=== PATIENT | male | born 1960 | race Caucasian/White ===

== ENCOUNTER 2020-03-01 07:59 | Outpatient (REF) | payer OTHER, SELFPAY ==
--- NOTE | 2020-03-01 07:59 | CT_ITS ---
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 COMPARISON: Selected images of the CT abdomen and pelvis of 12/28/2019, multiple previous chest CTs with the last chest CT dated 09/14/2019, selected images of the abdominal MRI of 11/10/2019 TECHNIQUE: Multidetector volumetric CT imaging of the chest was obtained after the administration of 65 mL of Omnipaque 350 intravenous contrast without immediate adverse reactions. Axial MIP volume rendering provided. Sagittal and coronal reformatted images were obtained. This CT examination was performed using dose optimization techniques as appropriate, variously including the following: *Automated exposure control *Adjustment of mA and/or kV according to patient size (this includes techniques or standardized protocols for targeted exams where dose is matched to indication/reason for exam; i.e. extremities or head) *Use of iterative reconstruction technique DLP: 112 mGy-cm FINDINGS: MEDICAL SURGERY NURSE: A right-sided CT compatible Port-A-Cath is noted with the tip of the catheter projecting over the expected location of the lower SVC. Vertebroplasty changes are noted at L1. LUNGS: Mild changes of centrilobular emphysema with upper lobe predominance are again noted. There is mild diffuse bronchial thickening. Multiple scattered small calcified granulomas are noted. Mild paraseptal emphysematous changes in the lung apices, right greater than left. A 0.4 cm noncalcified subpleural nodule in the right apex anterolaterally (series 7 image 89), probable ill-defined 0.4 cm subpleural nodule in the right upper lobe anterolaterally (series 7 image 110) and a 0.2 cm discrete noncalcified subpleural nodule in the right upper lobe anterolaterally (series 7 image 125) are not significantly changed compared to previous CT of 04/18/2018. Somewhat irregular opacity/mass in the inferior left upper lobe measuring 1.7 x 0.9 cm is again noted (series 7 image 317), without significant interval change compared to previous CT scan of 02/04/2019 as well as PET CT of 10/30/2018. Initial CT scan of 07/24/2017, an irregular mass was noted in the region measuring 2.3 x 2.5 cm in AP and transverse dimension which demonstrated increase in the size on follow-up CT of 12/03/2017 measuring 2.7 x 3.7 cm. It measured 2.3 x [address] scan of 04/18/2018. This is the site of known malignancy. MEDIASTINUM: The visualized thyroid gland is unremarkable. No evidence of enlarged mediastinal or hilar lymph nodes. Cardiac size is normal. Moderate coronary calcifications. No pericardial effusion. Trachea and central bronchi are well patent. An ascending aortic aneurysm measures 4.0 cm at the level of the right main pulmonary artery. The descending thoracic aorta measures 3.1 cm in maximum AP diameter. There is mild ectasia of the aortic arch measuring 3.6 cm in transverse diameter. PLEURA: There is no pleural effusion. No pleural mass or thickening. AXILLA: No lymphadenopathy. CHEST WALL SOFT TISSUES: Symmetrical mild bilateral gynecomastia is noted. A CT compatible Port-A-Cath is noted in the right upper anterior chest wall subcutaneous tissue terminating into the lower SVC. UPPER ABDOMEN: Multiple rim enhancing hypodense lesions are noted in the liver with the largest one at the hepatic dome measuring 1.8 cm (series 3 image 49). The second discrete lesion in the hepatic segment 8 measures 1.6 cm in maximum dimension (series 3 image 57). These lesions are new compared to last CT of 12/28/2019. 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 Pancreatic and peripancreatic fluid collections invading the adjacent gastric wall are again noted with mild decrease in the size compared to last CT. Postsurgical changes of splenectomy are seen. A rounded fluid collection in the vicinity of the caudate lobe has decreased in size, measuring 2.7 cm on current examination, previously 5.1 cm (12/28/2019). Bilateral hypodense lesions in the visualized kidneys are again noted. OSSEOUS STRUCTURES: Vertebroplasty changes at L1 are again noted. Mild degenerative changes in the spine. No acute or suspicious osseous lesion. IMPRESSION: 1. Irregular opacity/mass in the inferior left upper lobe/lingula is not significantly changed since the previous PET/CT of 10/30/2018. This is the site of known malignancy. The finding has significantly decreased in size compared to previous CTs of 2018. 2. Changes of emphysema. 3. A few subcentimeter noncalcified right upper lobe subpleural lung nodules are stable since the previous chest CT of 04/18/2018. 4. Improving pancreatic and peripancreatic fluid collections. 5. Multiple new rim enhancing liver lesions; differential possibilities include metastases versus hepatic abscesses. The appearance of multiple new liver lesions seen on the current CT is similar to that the liver lesions seen on the CT scan of 12/03/2017 the left hepatic lobe lesion seen on the CT scan of 12/03/2017 is not seen on the current examination. Hepatic metastases are favored given the appearance of the lesions similar to the previous studies and interval improvement of the pancreatic/peripancreatic infectious/inflammatory process in the upper abdomen. The findings were discussed with Dr. Mathews, covering physician for Dr. Angeles on 03/02/2020 at 12:45 PM.
[2020-03-01] MEDS: iohexoL 350 MG/ML 100 ML INFUS..BTL 85 ML IV (10:04)
--- NOTE | 2020-03-04 11:26 | MHC.HEMONCSW ---
PT TO START KEYTRUDA NEXT WEEK. INSURANCE IS [employer], NO PA FOR CHEMO REQUIRED.
== END 2020-03-01 08:00 | disposition home or self-care (01) ==
LOC: HO.CT 07:59
PROVIDERS: PCP Internal Medicine; Visit Provider Internal Medicine Medical Oncology
DX: C34.90 Malignant neoplasm of unspecified part of unspecified bronchus or lung (principal)
CPT/HCPCS: 71260; J1642

== ENCOUNTER 2020-04-18 08:05 | Inpatient (IN) | payer OTHER, SELFPAY ==
[2020-04-18] VITALS (10 sets, daily range): BP systolic 81–128; BP diastolic 54–72; PULSE 62–105; RESP 16–19; TEMP 36.6–37.2; O2SAT 98–100; BMI 19.1; BMI 20.2
--- NOTE | 2020-04-18 08:41 | XR_ITS ---
EXAMINATION: RIGHT KNEE X-RAY CLINICAL INFORMATION: Redness, swelling and pain COMPARISON: Previous x-ray August 2018 TECHNIQUE: 4 views right knee FINDINGS: Bone alignment is normal. No fracture or dislocation is seen. The joint spaces are normal. There is no significant joint effusion. There is evidence of atherosclerotic disease. XR/XR knee RT 3V IMPRESSION: Unremarkable exam. EXAMINATION: Chest x-ray CLINICAL INFORMATION: Dizziness COMPARISON: Previous chest x-ray December [address] February 2020 TECHNIQUE: Two-view chest FINDINGS: The cardiac and mediastinal contours are normal. There is minimal linear scarring or subsegmental atelectasis in the left upper lobe. This is stable. The lungs are otherwise clear. There is no pleural effusion or pneumothorax. There is a right sided Port-A-Cath with tip projecting over the SVC. There are degenerative changes of the spine. IMPRESSION: No evidence for acute disease in the chest.
--- NOTE | 2020-04-18 08:42 | ECG_ITS ---
Test Reason : CP Blood Pressure : / mmHG Vent. Rate : 072 BPM Atrial Rate : 072 BPM P-R Int : 126 ms QRS Dur : 080 ms QT Int : 446 ms P-R-T Axes : -15 -11 047 degrees QTc Int : 488 ms Normal sinus rhythm Prolonged QT RSR' or QR pattern in V1 suggests right ventricular conduction delay Abnormal ECG When compared with ECG of 28-DEC-2019 14:38, No significant change was found Referred By: Dinorah Del Real Electronically Signed By:ADEEL VALENCIA MD
--- NOTE | 2020-04-18 08:42 | XR_ITS ---
EXAMINATION: RIGHT KNEE X-RAY CLINICAL INFORMATION: Redness, swelling and pain COMPARISON: Previous x-ray August 2018 TECHNIQUE: 4 views right knee FINDINGS: Bone alignment is normal. No fracture or dislocation is seen. The joint spaces are normal. There is no significant joint effusion. There is evidence of atherosclerotic disease. XR/XR chest 2V IMPRESSION: Unremarkable exam. EXAMINATION: Chest x-ray CLINICAL INFORMATION: Dizziness COMPARISON: Previous chest x-ray December [address] February 2020 TECHNIQUE: Two-view chest FINDINGS: The cardiac and mediastinal contours are normal. There is minimal linear scarring or subsegmental atelectasis in the left upper lobe. This is stable. The lungs are otherwise clear. There is no pleural effusion or pneumothorax. There is a right sided Port-A-Cath with tip projecting over the SVC. There are degenerative changes of the spine. IMPRESSION: No evidence for acute disease in the chest.
--- NOTE | 2020-04-18 08:45 | ED_ITS ---
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 Angeles, myelofibrosis, TIA, pancreatitis. is on chronic prednisone 5 mg and Coumadin daily. Patient is here with nausea and vomiting for the last 3 days. He tells me that he has Zofran at home but has not tried taking it. Today he had 1 episode of diarrhea. He denies abdominal pain. He tells me today when he woke up he stood up and felt lightheaded and dizzy and that is when he called EMS. He denies any headache, cough, fevers, chills, chest pain. He does tell me he has had a painful right knee for the last few days. He denies any injury or trauma. unrelieved with home hydromorphone. Onset (ago): day(s) Location: lower extremity ( Right knee) Radiation: extremity Severity: mild Quality: sharp Pain Consistency: constant Relieving factors: none Exacerbating factors: none Associated symptoms: denies other symptoms Related Data Home Medications Medication Instructions Recorded Confirmed atorvastatin 20 mg PO BEDTIME 03/28/20 04/18/20 docusate sodium [Colace] 100 mg PO BID 03/28/20 04/18/20 doxycycline hyclate 100 mg PO BID 03/28/20 04/18/20 folic acid 1 mg PO DAILY 03/28/20 04/18/20 qpulax-[id number]-[id number] [Creon] 1 cap PO TID 03/28/20 04/18/20 mycophenolate mofetil [CellCept] 500 mg PO TID 03/28/20 04/18/20 tamsulosin 0.4 mg PO DAILY 03/28/20 04/18/20 omeprazole 20 mg PO DAILY 04/18/20 04/18/20 thiamine HCl (vitamin B1) [Vitamin 100 mg PO DAILY 04/18/20 04/18/20 B-1] Previous Rx's Medication Instructions Recorded rivaroxaban 20 mg tablet 20 mg PO DAILY 90 Days #90 tab 02/28/20 hydromorphone [Dilaudid] 2 mg PO Q6H 30 Days #60 tab 03/08/20 ondansetron HCl [Zofran] 8 mg PO NEEDED #60 tab 03/24/20 morphine [MS Contin] 30 mg PO Q12H 30 Days #30 tab 04/11/20 Allergies Allergy/AdvReac Type Severity Reaction Status Date / Time oxycodone [OXYCODONE] Allergy Unknown VOMITING, Verified 04/18/20 09:40 nausea and vomiting Review of Systems Review of Systems: Yes all other systems are reviewed and are negative Constitutional: Constitutional: Reports no additional constitutional complaints, Denies body ache(s), Denies chills, Denies fever(s), Denies headache(s) and Denies weakness Eyes: Eyes: Reports no additional eye complaints and Denies change in vision ENT: Reports system reviewed and no additional complaints, except as documented, Reports dizziness, Denies headache(s), Denies nasal congestion, Denies nasal discharge and Denies neck pain Cardiovascular: Cardiovascular: Reports no additional cardiovascular complaints, Denies chest pain, Denies leg edema and Denies dyspnea Respiratory: Respiratory: Reports no additional respiratory complaints, Denies cough and Denies dyspnea Gastrointestinal: Gastrointestinal: Reports no additional gastrointestinal complaints, Denies abdominal pain, Reports diarrhea, Reports nausea and Reports vomiting Genitourinary: Genitourinary: Denies urinary incontinence Musculoskeletal: Musculoskeletal: Reports no additional musculoskeletal complaints, Denies back pain, Reports arthralgias, Reports joint swelling, Denies neck pain, Denies numbness and Denies tingling Integumentary/Breasts: Skin/Breast: Reports system reviewed and no additional complaints, except as docu and Denies rash Neurologic: Reports system reviewed and no additional complaints, except as documented, Denies Abnormal speech present, Reports dizziness, Denies headache(s), Denies numbness, Denies tingling and Denies weakness [facility] Past Medical History Attestation statement: The following information was validated with the patient. Source: old records reviewed and nursing notes reviewed Medical History (Updated 04/18/20 @ 11:34 by Dinorah Del Real NP) Lupus anticoagulant disorder Myelofibrosis Pancreatic pseudocyst Polycythemia vera TIA (transient ischemic attack) Surgical History (Updated 04/18/20 @ 13:31 by Rachel Westfall NP) H/O hernia repair S/P herniorrhaphy Social History Social History Alcohol intake: never Smoking Status: Former smoker Use of substances other than those prescribed or required for medical reasons: No Advance Directives: No Advance Directives Information Provided: Yes Physical Exam 2 Vital Signs: Vital Signs: Last Vital Signs Temp 98.5 F 04/18/20 13:21 Pulse 72 04/18/20 13:21 Resp 16 04/18/20 13:21 BP 107/64 04/18/20 13:21 Pulse Ox 100 04/18/20 13:21 Body Mass Index 19.1 Const: Other: thin appearing General: cooperative, comfortable and no acute distress Orientation/consciousness: patient oriented x3 Limitations: no limitations HENMT: Other: Tacky mucous membranes Head: Yes normal to inspection Ears: hearing grossly normal bilaterally General nose exam: Normal external nose present Face and sinus: Yes normal facial exam Throat: Yes posterior oropharynx normal Eyes: General: appearance normal, both eyes and all related structures Pupils: Equal, round and reactive pupils present Neck: Neck: Yes normal visual inspection Chest: Chest palpation & inspection: normal inspection of the chest Resp: Effort & Inspection: normal respiratory effort Auscultation: clear to auscultation bilaterally Cardio: Rate: regular rate Rhythm: regular rhythm Peripheral pulses: Peripheral pulses 2+ throughout GI: Inspection: Yes normal to inspection Palpation (GI): Soft to palpation and nontender Auscultation: normal bowel sounds Back/Spine/Pelvis: Thoracic/Lumbar Spine: thoracic and lumbar spine normal to inspection Skin: General skin exam: no rashes or lesions noted Neuro: Other: [id number] normal. Unable to perform heel to brooke to the right knee pain. Unable to assess gait this time. General: patient oriented x3, no focal motor deficits, normal sensation to monofilament and Unable to assess gait Cranial nerves: Yes Equal, round and reactive pupils present Cognition (Neuro): normal cognition Speech: No Abnormal speech present Gait exam (Neuro): Unable to assess gait Motor exam (neuro): 5/5 motor strength present throughout Extrem: Other: Anterior right knee there is the mild swelling, erythema, warmth. No deformity. The patient is able to extend the knee no difficulty. He does have more pain with flexion General: Yes normal to inspection Course Course Course Narrative: 59-year-old male here with nausea, vomiting for the last 3 days. also complaining of right knee pain and swelling and dizziness with position changes noticed today. On exam the patient is thin appearing, tacky mucous membranes. No abdominal pain. Stable vital signs. Afebrile. will need labs, UA, orthostatics, imaging of chest and right knee, CT head. Will give NSB, antiemetic, analgesia. 1130- labs show leukocytosis which is unchanged from baseline and is likely secondary to chronic prednisone use. Mildly elevated troponin with no complaints of chest pain or EKG changes. Plan for repeat 3 hour troponin. Renal function at baseline. Low magnesium which is likely secondary to vomiting at home. Replacement ordered. Imaging unremarkable. Orthostatics significa ntly positive. 2 L normal saline bolus ordered. Patient unable to tolerate p.o. while here in the emergency department. Plan for admission. Discussed with Rachel DUFFY who accepted admission. Imaging of right knee unremarkable. Low concern for septic bursitis with full range of motion with no difficulty. More likely reactive arthritis. Medical Decision Making MDM Narrative Medical decision making narrative: Failure to thrive, vomiting secondary to chemotherapy, underlying infection (PNA, uti, covid infection, septic bursitis), pancreatitis, ICH versus lesion Medical Records Medical records reviewed: Yes I reviewed the patient's medical records. Lab Data Lab results reviewed: Yes I reviewed the patient's lab results. Result diagrams: 04/18/20 09:28 04/18/20 09:29 Labs: Lab Results 04/18/20 04/18/20 04/18/20 Range/Units 09:28 09:29 09:29 WBC 17.0 H (4.8-10.8) X10*3/uL RBC 3.50 L (4.60-5.80) X10*6/uL Hgb 9.7 L (14.0-18.0) g/dl Hct 30.0 L (42-52) % MCV 85.7 (80-98) fL MCH 27.7 (27.0-33.0) pg MCHC 32.3 (31.0-36.0) g/dl RDW 15.9 (11.0-16.0) % Plt Count 374 (160-400) X10*3/uL MPV 11.2 (9.4-12.4) fL Immature Gran % (Auto) 0.5 H (0.0-0.4) % Neut % (Auto) 56.7 (45-73) % Lymph % (Auto) 23.0 (20-40) % Brantley % (Auto) 9.5 (2-11) % Eos % (Auto) 9.1 H (0-4) % Baso % (Auto) 1.2 (0-2) % Lymph # (Auto) 3.9 (1.2-4.9) X10*3/uL Brantley # (Auto) 1.6 H (0.1-1.2) X10*3/uL Eos # (Auto) 1.6 H (0.0-0.4) X10*3/uL Baso # (Auto) 0.2 (0.0-0.2) X10*3/uL Abs Immat Gran (auto) 0.08 H (0.00-0.03) X10*3/uL Absolute Neuts (auto) 9.6 H (2.0-8.3) X10*3/uL Absolute Nucleated RBC 0.040 H (0.0-0.012) X10*3/uL Nucleated RBC % (auto) 0.2 (0.0-0.2) /100WBC Smear Tech's Comments VERIFIED Hold Blue Top SEE NOTE Sodium 144 (135-145) mmol/L Potassium 4.1 (3.3-5.1) mmol/l Chloride 109 H (96-108) mmol/L Carbon Dioxide 20 L (22-29) mmol/L Anion Gap 19 (12-20) BUN 24 H (9-16) mg/dL Creatinine 1.58 H (0.5-1.4) mg/dL Estim Creat Clear Calc 43.1 Estimated GFR 45 Random Glucose 62 D (60-115) mg/dL Lactic Acid (0.5-2.0) mmol/L Calcium 7.0 L D (8.4-10.2) mg/dL Magnesium < 0.7 L* (1.6-2.6) mg/dL Total Bilirubin 0.8 (0.0-1.0) mg/dL Direct Bilirubin 0.4 (0.0-0.5) mg/dL AST 16 (5-37) U/L ALT 7 (0-40) U/L Alkaline Phosphatase 145 H (39-117) U/L Troponin I High Sens (<3.5-35.0) ng/L Total Protein 5.2 L (6.5-8.0) g/dL Albumin 2.8 L (3.5-5.0) g/dL Lipase 46 (8-78) U/L Respiratory Panel Mo Adenovirus (Rapid PCR) (Not Detect.) B.pert (TEM-PCR) (Not Detect.) B.parapertussis DNA PCR (Not Detect.) C. pneumoniae DNA (PCR) (Not Detect.) Coronavirus OC43 (PCR) (Not Detect.) Coronavirus HKU1 (PCR) (Not Detect.) Coronavirus 229E (PCR) (Not Detect.) Coronavirus NL63 (PCR) (Not Detect.) Human Metapneumovir PCR (Not Detect.) Influenza A (RT-PCR) (Not Detect.) Influenza B (RT-PCR) (Not Detect.) M. pneumoniae (PCR) (Not Detect.) Parainfluenza 1 (PCR) (Not Detect.) Parainfluenza 2 (PCR) (Not Detect.) Parainfluenza 3 (PCR) (Not Detect.) Parainfluenza 4 (PCR) (Not Detect.) RSV (PCR) (Not Detect.) Entero/Rhino (PCR) (Not Detect.) SARS-CoV-2 RNA (RT-PCR) (Not Detect.) 04/18/20 04/18/20 04/18/20 Range/Units 09:29 09:30 09:31 WBC (4.8-10.8) X10*3/uL RBC (4.60-5.80) X10*6/uL Hgb (14.0-18.0) g/dl Hct (42-52) % MCV (80-98) fL MCH (27.0-33.0) pg MCHC (31.0-36.0) g/dl RDW (11.0-16.0) % Plt Count (160-400) X10*3/uL MPV (9.4-12.4) fL Immature Gran % (Auto) (0.0-0.4) % Neut % (Auto) (45-73) % Lymph % (Auto) (20-40) % Brantley % (Auto) (2-11) % Eos % (Auto) (0-4) % Baso % (Auto) (0-2) % Lymph # (Auto) (1.2-4.9) X10*3/uL Brantley # (Auto) (0.1-1.2) X10*3/uL Eos # (Auto) (0.0-0.4) X10*3/uL Baso # (Auto) (0.0-0.2) X10*3/uL Abs Immat Gran (auto) (0.00-0.03) X10*3/uL Absolute Neuts (auto) (2.0-8.3) X10*3/uL Absolute Nucleated RBC (0.0-0.012) X10*3/uL Nucleated RBC % (auto) (0.0-0.2) /100WBC Smear Tech's Comments Hold Blue Top Sodium (135-145) mmol/L Potassium (3.3-5.1) mmol/l Chloride (96-108) mmol/L Carbon Dioxide (22-29) mmol/L Anion Gap (12-20) BUN (9-16) mg/dL Creatinine (0.5-1.4) mg/dL Estim Creat Clear Calc Estimated GFR Random Glucose (60-115) mg/dL Lactic Acid 1.2 (0.5-2.0) mmol/L Calcium (8.4-10.2) mg/dL Magnesium (1.6-2.6) mg/dL Total Bilirubin (0.0-1.0) mg/dL Direct Bilirubin (0.0-0.5) mg/dL AST (5-37) U/L ALT (0-40) U/L Alkaline Phosphatase (39-117) U/L Troponin I High Sens 11.0 (<3.5-35.0) ng/L Total Protein (6.5-8.0) g/dL Albumin (3.5-5.0) g/dL Lipase (8-78) U/L Respiratory Panel Mo See Note Adenovirus (Rapid PCR) Not Detected (Not Detect.) B.pert (TEM-PCR) Not Detected (Not Detect.) B.parapertussis DNA PCR Not Detected (Not Detect.) C. pneumoniae DNA (PCR) Not Detected (Not Detect.) Coronavirus OC43 (PCR) Not Detected (Not Detect.) Coronavirus HKU1 (PCR) Not Detected (Not Detect.) Coronavirus 229E (PCR) Not Detected (Not Detect.) Coronavirus NL63 (PCR) Not Detected (Not Detect.) Human Metapneumovir PCR Not Detected (Not Detect.) Influenza A (RT-PCR) Not Detected (Not Detect.) Influenza B (RT-PCR) Not Detected (Not Detect.) M. pneumoniae (PCR) Not Detected (Not Detect.) Parainfluenza 1 (PCR) Not Detected (Not Detect.) Parainfluenza 2 (PCR) Not Detected (Not Detect.) Parainfluenza 3 (PCR) Not Detected (Not Detect.) Parainfluenza 4 (PCR) Not Detected (Not Detect.) RSV (PCR) Not Detected (Not Detect.) Entero/Rhino (PCR) Not Detected (Not Detect.) SARS-CoV-2 RNA (RT-PCR) Not Detected (Not Detect.) Imaging Data Chest x-ray: Attestation: I personally reviewed and interpreted this imaging study as follows: Radiologist's impression: EXAMINATION: Chest x-ray CLINICAL INFORMATION: Dizziness COMPARISON: Previous chest x-ray December [address] February 2020 TECHNIQUE: Two-view chest FINDINGS: The cardiac and mediastinal contours are normal. There is minimal linear scarring or subsegmental atelectasis in the left upper lobe. This is stable. The lungs are otherwise clear. There is no pleural effusion or pneumothorax. There is a right sided Port-A-Cath with tip projecting over the SVC. There are degenerative changes of the spine. IMPRESSION: No evidence for acute disease in the chest. knee xray: Attestation: I personally reviewed and interpreted this imaging study as doyle bazan: Radiologist's impression: EXAMINATION: RIGHT KNEE X-RAY CLINICAL INFORMATION: Redness, swelling and pain COMPARISON: Previous x-ray August 2018 TECHNIQUE: 4 views right knee FINDINGS: Bone alignment is normal. No fracture or dislocation is seen. The joint spaces are normal. There is no significant joint effusion. There is evidence of atherosclerotic disease. XR/XR knee RT 3V IMPRESSION: Unremarkable exam. CT scan - head: Attestation: I personally reviewed and interpreted this imaging study as follows: Radiologist's impression: EXAMINATION: CT HEAD WITHOUT IV CONTRAST INDICATION: Dizziness, nausea, rule out mass. COMPARISON: Head CT 09/14/2019. TECHNIQUE: Multidetector CT acquisitions of the head was obtained without IV contrast. This CT examination was performed using dose optimization techniques as appropriate, variously including the following: *Automated exposure control *Adjustment of mA and/or kV according to patient size (this includes techniques or standardized protocols for targeted exams where dose is matched to indication/reason for exam; i.e. extremities or head) *Use of iterative reconstruction technique FINDINGS: Stable pattern chronic microangiopathy and chronic lacunar infarcts within the deep espinoza nuclei. There is no intracranial hemorrhage, hydrocephalus, extra-axial surface collection, midline shift, or other herniation pattern. Espinoza to white matter differentiation is diffusely maintained without evidence of an evolved acute territorial infarct. The basilar cisterns are preserved. No significant soft tissue abnormality. No acute osseous abnormality. The paranasal sinuses and the mastoid air cells are well aerated. CT/CT head/brain wo con IMPRESSION: - No acute intracranial abnormality. - Stable pattern chronic microangiopathy and chronic lacunar infarcts within the deep espinoza nuclei. - Atherosclerotic calcification throughout the intracranial arterial vasculature. ECG Data Attestation: I personally reviewed and interpreted this ECG as follows: Interpretation: normal sinus rhythm with a rate of 72, normal DE, normal QRS, prolonged QT 488 Discharge Plan Discharge Clinical Impression: Non-small cell carcinoma of lung, Hypomagnesemia, Orthostatic hypotension Patient Disposition: Admitted As Inpatient
--- NOTE | 2020-04-18 09:10 | PC.NURSE ---
Pt taken to xray at 0845. Just returned
[2020-04-18] MEDS: 0.9 % Sodium Chloride 1,000 ML 999 ML IV ×2 (09:41→10:41)
[2020-04-18] MEDS: HYDROmorphone HCl 0.5 MG/0.5 ML SYRINGE IVPUSH ×3 (09:42→21:00)
[2020-04-18] MEDS: ondansetron HCL 4 MG/2 ML VIAL IVPUSH (09:43)
[2020-04-18 09:52] LABS: Basophils Absolute Auto 0.2 X10*3/uL (0.0-0.2); Basophils Percent Auto 1.2 % (0-2); Eosinophils Absolute Auto 1.6 X10*3/uL (0.0-0.4); Eosinophils Percent Auto 9.1 % (0-4); Hemoglobin 9.7 g/dl (14.0-18.0); Imm Gran Abs Auto 0.08 X10*3/uL (0.00-0.03); Imm Gran Pct Auto 0.5 % (0.0-0.4); Lymphocytes Absolute Auto 3.9 X10*3/uL (1.2-4.9); MANUAL DIFF FLAG SCAN; Mean Corpuscular HGB Conc 32.3 g/dl (31.0-36.0); Mean Corpuscular Hemoglobin 27.7 pg (27.0-33.0); Mean Corpuscular Volume 85.7 fL (80-98); Mean Platelet Volume 11.2 fL (9.4-12.4); Monocytes Absolute Auto 1.6 X10*3/uL (0.1-1.2); Monocytes Percent Auto 9.5 % (2-11); NRBC Pct Auto 0.2 /100WBC (0.0-0.2); Neutrophils Absolute Auto 9.6 X10*3/uL (2.0-8.3); Neutrophils Percent Auto 56.7 % (45-73); Platelet Count 374 X10*3/uL (160-400); Red Cell Distribution Width 15.9 % (11.0-16.0); SCAN SMEAR FLAG 1
[2020-04-18 10:03] LABS: Lactic Acid 1.2 mmol/L (0.5-2.0)
[2020-04-18 10:11] LABS: Adenovirus PCR Not Detected (Not Detect.); Bordetella parapertussis PCR Not Detected (Not Detect.); Bordetella pertussis PCR Not Detected (Not Detect.); Chlamydia pneumoniae PCR Not Detected (Not Detect.); Coronavirus 229E PCR Not Detected (Not Detect.); Coronavirus HKU1 PCR Not Detected (Not Detect.); Coronavirus NL63 PCR Not Detected (Not Detect.); Coronavirus OC43 PCR Not Detected (Not Detect.); Human metapneumovirus PCR Not Detected (Not Detect.); Influenza A PCR Not Detected (Not Detect.); Influenza B PCR Not Detected (Not Detect.); Mycoplasma pneumoniae PCR Not Detected (Not Detect.); Parainfluenza 1 PCR Not Detected (Not Detect.); Parainfluenza 2 PCR Not Detected (Not Detect.); Parainfluenza 3 PCR Not Detected (Not Detect.); Parainfluenza 4 PCR Not Detected (Not Detect.); RSV PCR Not Detected (Not Detect.); Rhino/Enterovirus PCR Not Detected (Not Detect.); SARS-CoV-2 PCR Not Detected (Not Detect.)
[2020-04-18 10:41] LABS: SLIDE REVIEW VERIFIED
[2020-04-18 10:50] LABS: Alanine Aminotransferase 7 U/L (0-40); Albumin Level 2.8 g/dL (3.5-5.0); Alkaline Phosphatase 145 U/L (39-117); Anion Gap 19 (12-20); Aspartate Amino Transferase 16 U/L (5-37); Bilirubin Direct 0.4 mg/dL (0.0-0.5); Bilirubin Total 0.8 mg/dL (0.0-1.0); Blood Urea Nitrogen 24 mg/dL (9-16); Carbon Dioxide 20 mmol/L (22-29); Chloride 109 mmol/L (96-108); Creatinine Clr Calc Pharmacy 43.1; Estimated Glomerular Filt Rate 45; Glucose Random 62 mg/dL (60-115); Lipase 46 U/L (8-78); Potassium 4.1 mmol/l (3.3-5.1); Sodium 144 mmol/L (135-145); Total Protein 5.2 g/dL (6.5-8.0)
[2020-04-18] MEDS: Magnesium Sulfate/H2O 2 GM/50 ML PIGGYBACK IV (11:20)
[2020-04-18] MEDS: HYDROmorphone HCl 1 MG/ML SYRINGE IVPUSH (12:17)
[2020-04-18 13:26] LABS: Magnesium < 0.7 mg/dL (1.6-2.6)
--- NOTE | 2020-04-18 13:27 | PM.IMHP ---
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 He is currently under treatment at [facility] [place] [place]. He was getting ready today to leave his house for treatment and he started to feel dizzy. He also stated that he has had some nausea and diarrhea since last week and has not been eating well. He has a history of hypotension and was told to follow up if he felt dizzy. He was discharged from [facility] in December of 2019. At that time he was treated for acute on chronic pancreatitis, he was transferred to [facility] for evacuation of pancreatic pseudocysts. In the ED, he was noted to have an elevated WBC, magnesium of 0.7 that was repleted in the ED. He was given pain medication and zofran. He will be admitted for further management of orthostasis and hypomagnesemia. <Rachel Westfall NP - Last Filed: 04/18/20 13:59> Review of Systems Review of Systems: Denies any recent fever chills or decrease in appetite respiratory denies any shortness of breath coverage production cardiovascular is adjustment of any PND or edema gastrointestinal denies any dysphagia abdominal pain nausea vomiting or diarrhea genitourinary denies any dysuria frequency or hematuria musculoskeletal see HPI neuropsych see HPI all other systems reviewed are negative <Rachel Westfall NP - Last Filed: 04/18/20 13:59> Constitutional: Constitutional: Denies headache(s) and Denies weakness <Rachel Westfall NP - Last Filed: 04/18/20 13:59> ENT: Reports dizziness and Denies headache(s) <Rachel Westfall NP - Last Filed: 04/18/20 13:59> Musculoskeletal: Musculoskeletal: Denies numbness and Denies tingling <Rachel Westfall NP - Last Filed: 04/18/20 13:59> Neurologic: Reports system reviewed and no additional complaints, except as documented, Denies Abnormal speech present, Reports dizziness, Denies headache(s), Denies numbness, Denies tingling and Denies weakness <Rachel Westfall NP - Last Filed: 04/18/20 13:59> [facility] Medical History: Medical History (Updated 04/30/20 @ 09:09 by Yuni Angeles MD) Lupus anticoagulant disorder Myelofibrosis Pancreatic pseudocyst Polycythemia vera TIA (transient ischemic attack) <Rachel Westfall NP - Last Filed: 04/18/20 13:59> Pertinent family history: denies cardiac disease <Rachel Westfall NP - Last Filed: 04/18/20 13:59> Surgical History: Surgical History (Updated 04/19/20 @ 09:15 by Yuni Angeles MD) H/O hernia repair S/P herniorrhaphy <Rachel Westfall NP - Last Filed: 04/18/20 13:59> Social History: Social History Household Members: None Housing: Unknown / Unable to assess Alcohol intake: never Smoking Status: Former smoker Advance Directives: No Advance Directives Information Provided: No service: Yes Current occupational status: disabled <Rachel Westfall NP - Last Filed: 04/18/20 13:59> Meds Allergies/Adverse reactions: Allergies Allergy/AdvReac Type Severity Reaction Status Date / Time oxycodone [OXYCODONE] Allergy Unknown VOMITING, Verified 04/29/20 13:54 nausea and vomiting <Rachel Westfall NP - Last Filed: 04/18/20 13:59> Home medications: Home Medications Medication Instructions Recorded Confirmed Type Creon 1 cap PO TID 03/28/20 04/18/20 History atorvastatin 20 mg PO BEDTIME 03/28/20 04/18/20 History docusate sodium [Colace] 100 mg PO BID 03/28/20 04/18/20 History folic acid 1 mg PO DAILY 03/28/20 04/18/20 History mycophenolate mofetil [CellCept] 500 mg PO TID 03/28/20 04/18/20 History tamsulosin 0.4 mg PO DAILY 03/28/20 04/18/20 History omeprazole 20 mg PO DAILY 04/18/20 04/18/20 History thiamine HCl (vitamin B1) [Vitamin 100 mg PO DAILY 04/18/20 04/18/20 History B-1] <Racehl Westfall NP - Last Filed: 04/18/20 13:59> Physical Exam Vital Signs and Narrative: Vital Signs: Last Vital Signs Temp 98.5 F 04/18/20 13:21 Pulse 72 04/18/20 13:21 Resp 16 04/18/20 13:21 BP 107/64 04/18/20 13:21 Pulse Ox 100 04/18/20 13:21 Body Mass Index 19.1 <Rachel Westfall NP - Last Filed: 04/18/20 13:59> Neuro: Speech: No Abnormal speech present <Rachel Westfall NP - Last Filed: 04/18/20 13:59> Results Labs CBC and Chem 7: : 04/22/20 05:50 04/22/20 13:27 <Rachel Westfall NP - Last Filed: 04/18/20 13:59> Labs: Laboratory Results - last 24 hr 04/18/20 04/18/20 04/18/20 09:28 09:29 09:29 MCV 85.7 MCH 27.7 MCHC 32.3 RDW 15.9 Plt Count 374 MPV 11.2 Immature Gran % (Auto) 0.5 H Neut % (Auto) 56.7 Lymph % (Auto) 23.0 [place] % (Auto) 9.5 Eos % (Auto) 9.1 H Baso % (Auto) 1.2 Lymph # (Auto) 3.9 [place] # (Auto) 1.6 H Eos # (Auto) 1.6 H Baso # (Auto) 0.2 Abs Immat Gran (auto) 0.08 H Absolute Neuts (auto) 9.6 H Absolute Nucleated RBC 0.040 H Nucleated RBC % (auto) 0.2 Smear Tech's Comments VERIFIED Hold Blue Top SEE NOTE Anion Gap 19 Estim Creat Clear Calc 43.1 Estimated GFR 45 Random Glucose 62 D Lactic Acid Calcium 7.0 L D Magnesium < 0.7 L* Total Bilirubin 0.8 Direct Bilirubin 0.4 AST 16 ALT 7 Alkaline Phosphatase 145 H Troponin I High Sens Total Protein 5.2 L Albumin 2.8 L Lipase 46 Respiratory Panel Mo Adenovirus (Rapid PCR) B.pert (TEM-PCR) B.parapertussis DNA PCR C. pneumoniae DNA (PCR) Coronavirus OC43 (PCR) Coronavirus HKU1 (PCR) Coronavirus 229E (PCR) Coronavirus NL63 (PCR) Human Metapneumovir PCR Influenza A (RT-PCR) Influenza B (RT-PCR) M. pneumoniae (PCR) Parainfluenza 1 (PCR) Parainfluenza 2 (PCR) Parainfluenza 3 (PCR) Parainfluenza 4 (PCR) RSV (PCR) Entero/Rhino (PCR) SARS-CoV-2 RNA (RT-PCR) 04/18/20 04/18/20 04/18/20 09:29 09:30 09:31 MCV MCH MCHC RDW Plt Count MPV Immature Gran % (Auto) Neut % (Auto) Lymph % (Auto) [place] % (Auto) Eos % (Auto) Baso % (Auto) Lymph # (Auto) [place] # (Auto) Eos # (Auto) Baso # (Auto) Abs Immat Gran (auto) Absolute Neuts (auto) Absolute Nucleated RBC Nucleated RBC % (auto) Smear Tech's Comments Hold Blue Top Anion Gap Estim Creat Clear Calc Estimated GFR Random Glucose Lactic Acid 1.2 Calcium Magnesium Total Bilirubin Direct Bilirubin AST ALT Alkaline Phosphatase Troponin I High Sens 11.0 Total Protein Albumin Lipase Respiratory Panel Mo See Note Adenovirus (Rapid PCR) Not Detected B.pert (TEM-PCR) Not Detected B.parapertussis DNA PCR Not Detected C. pneumoniae DNA (PCR) Not Detected Coronavirus OC43 (PCR) Not Detected Coronavirus HKU1 (PCR) Not Detected Coronavirus 229E (PCR) Not Detected Coronavirus NL63 (PCR) Not Detected Human Metapneumovir PCR Not Detected Influenza A (RT-PCR) Not Detected Influenza B (RT-PCR) Not Detected M. pneumoniae (PCR) Not Detected Parainfluenza 1 (PCR) Not Detected Parainfluenza 2 (PCR) Not Detected Parainfluenza 3 (PCR) Not Detected Parainfluenza 4 (PCR) Not Detected RSV (PCR) Not Detected Entero/Rhino (PCR) Not Detected SARS-CoV-2 RNA (RT-PCR) Not Detected <Rachel Westfall NP - Last Filed: 04/18/20 13:59> Imaging Radiologist's Impressions: Impressions Knee X-Ray 04/18/20 08:41 IMPRESSION: Unremarkable exam. EXAMINATION: Chest x-ray CLINICAL INFORMATION: Dizziness COMPARISON: Previous chest x-ray December [address] February 2020 TECHNIQUE: Two-view chest FINDINGS: The cardiac and mediastinal contours are normal. There is minimal linear scarring or subsegmental atelectasis in the left upper lobe. This is stable. The lungs are otherwise clear. There is no pleural effusion or pneumothorax. There is a right sided Port-A-Cath with tip projecting over the SVC. There are degenerative changes of the spine. IMPRESSION: No evidence for acute disease in the chest. Chest X-Ray 04/18/20 08:42 IMPRESSION: Unremarkable exam. EXAMINATION: Chest x-ray CLINICAL INFORMATION: Dizziness COMPARISON: Previous chest x-ray December [address] February 2020 TECHNIQUE: Two-view chest FINDINGS: The cardiac and mediastinal contours are normal. There is minimal linear scarring or subsegmental atelectasis in the left upper lobe. This is stable. The lungs are otherwise clear. There is no pleural effusion or pneumothorax. There is a right sided Port-A-Cath with tip projecting over the SVC. There are degenerative changes of the spine. IMPRESSION: No evidence for acute disease in the chest. Head CT 04/18/20 08:44 IMPRESSION: - No acute intracranial abnormality. - Stable pattern chronic microangiopathy and chronic lacunar infarcts within the deep cardona nuclei. - Atherosclerotic calcification throughout the intracranial arterial vasculature. <Rachel Westfall NP - Last Filed: 04/18/20 13:59> Assessment and Plan (1) Orthostatic hypotension: Status: Acute <Rachel Westfall NP - Last Filed: 04/18/20 13:59> 59-year-old man admitted due the dizziness secondary to orthostatic hypotension. He has history lung and liver cancer and is currently under treatment. Orthostatic hypotension. Poor appetite recently. Check orthostatic blood pressures regularly, D5 normal saline. Possible right knee effusion. Orthopedic consultation, pain medications. Hypomagnesemia. Repleted in the ED, follow magnesium daily. Leukocytosis. Chronically elevated, no signs of acute infection. Lung carcinoma. Under the treatment of Dr. Angeles. Recurrent pancreatitis/pancreatic cysts. Not acute. Continue home medications. Lupus anticoagulant disorder. Continue DVT prophylaxis with Rivaroxaban. Discussed with Dr. Casiano. Full code <Rachel Westfall NP - Last Filed: 04/18/20 13:59> (2) Hypomagnesemia: Status: Acute <Rachel Westfall NP - Last Filed: 04/18/20 13:59>
[2020-04-18 14:13] LABS: Glucose Urine UA NEG (NEG); Leukocyte Esterase Urine NEG (NEG); Nitrite Urine NEG (NEG); PH 5.5 (5.0-8.0); Specific Gravity - Urine 1.025 (1.005-1.025); Urine Blood NEG (NEG); Urine Ketones 15 MG/DL (NEG); Urine Protein 1+ MG/DL (NEG-TRACE)
[2020-04-18 14:14] LABS: Appearance Urine HAZY; Color Urine YELLOW
[2020-04-18 14:31] LABS: Bacteria Urine TRACE /LPF; Mucus Urine 2+ /LPF; RBC Urine 0 /HPF (0); Squamous Epithelial Cell Urine 2+ /LPF; Troponin-I High Sensitivity 10.9 ng/L (<3.5-35.0); WBC Urine 0-2 /HPF (0-4)
[2020-04-18] MEDS: Magnesium Sulfate/D5W 1 GM/100 ML PIGGYBACK IV (17:39)
[2020-04-18] MEDS: Rivaroxaban 20 MG TABLET PO (17:47)
[2020-04-18] MEDS: Tamsulosin HCL 0.4 MG CAPSULE PO (17:47)
[2020-04-18] MEDS: 0.9 % Sodium Chloride Flush 3 ML SYRINGE IVFLUSH ×2 (17:47→22:14)
[2020-04-18] MEDS: Morphine Sulfate ER 30 MG TABLET.ER PO (17:47)
--- NOTE | 2020-04-18 18:04 | PM.EVENT ---
Event Note Date of Service: 04/18/20 Event Note: Attending admission Note Patient seen and examined. Case discussed with Rachel Westfall NP. Agree with her history and physical. 59 yo M with history of Myelofirbrosis, hitory of lupus anticoagulant positive, TIA, pancreatitis, lung adenoCa of lungs with liver mets who presents to the hospital with complaints of dizziness. In the ED noted to be significantly orthostatic and admitted for further rx. Plan IVF ortho eval for the knee -- hold off antibiotics at this time remainder per H&P
[2020-04-18] MEDS: Dextrose 5 % and 0.9 % NaCl 1,000 ML 100 ML IVCONT (18:47)
[2020-04-18] MEDS: Atorvastatin Calcium 20 MG TABLET PO (20:58)
[2020-04-18] MEDS: Docusate Sodium 100 MG CAPSULE PO (20:58)
[2020-04-18] MEDS: mycophenolate mofetiL 250 MG CAPSULE 500 MG PO (20:59)
[2020-04-19] VITALS (14 sets, daily range): BP systolic 94–133; BP diastolic 50–81; PULSE 70–112; RESP 18–20; TEMP 36.7–38.7; O2SAT 95–99; BMI 20.2
[2020-04-19] MEDS: HYDROmorphone HCl 0.5 MG/0.5 ML SYRINGE IVPUSH ×6 (01:04→21:18)
[2020-04-19] MEDS: ondansetron HCL 4 MG/2 ML VIAL IVPUSH ×2 (05:12→13:06)
[2020-04-19] MEDS: Morphine Sulfate ER 30 MG TABLET.ER PO ×2 (06:27→17:16)
[2020-04-19] MEDS: Omeprazole 20 MG CAPSULE.DR PO (06:27)
[2020-04-19 07:24] LABS: Basophils Absolute Auto 0.2 X10*3/uL (0.0-0.2); Eosinophils Absolute Auto 1.8 X10*3/uL (0.0-0.4); Eosinophils Percent Auto 11.6 % (0-4); Hematocrit 26.9 % (42-52); Hemoglobin 8.5 g/dl (14.0-18.0); Imm Gran Abs Auto 0.08 X10*3/uL (0.00-0.03); Imm Gran Pct Auto 0.5 % (0.0-0.4); Lymphocytes Absolute Auto 3.2 X10*3/uL (1.2-4.9); Lymphocytes Percent Auto 20.8 % (20-40); MANUAL DIFF FLAG SCAN; Mean Corpuscular HGB Conc 31.6 g/dl (31.0-36.0); Mean Corpuscular Hemoglobin 27.4 pg (27.0-33.0); Mean Corpuscular Volume 86.8 fL (80-98); Mean Platelet Volume 11.2 fL (9.4-12.4); Monocytes Absolute Auto 1.9 X10*3/uL (0.1-1.2); Monocytes Percent Auto 12.4 % (2-11); NRBC Pct Auto 0.2 /100WBC (0.0-0.2); Neutrophils Absolute Auto 8.4 X10*3/uL (2.0-8.3); Neutrophils Percent Auto 53.7 % (45-73); Platelet Count 365 X10*3/uL (160-400); Red Cell Distribution Width 16.2 % (11.0-16.0); SCAN SMEAR FLAG 1; White Blood Count 15.6 X10*3/uL (4.8-10.8)
[2020-04-19 08:07] LABS: Anion Gap 14 (12-20); Blood Urea Nitrogen 17 mg/dL (9-16); Carbon Dioxide 20 mmol/L (22-29); Chloride 113 mmol/L (96-108); Creatinine Clr Calc Pharmacy 60.5; Estimated Glomerular Filt Rate > 60; Glucose Random 96 mg/dL (60-115); Potassium 3.9 mmol/l (3.3-5.1); Sodium 143 mmol/L (135-145)
[2020-04-19] MEDS: Docusate Sodium 100 MG CAPSULE PO (08:30)
[2020-04-19] MEDS: Thiamine HCL 100 MG TABLET PO (08:30)
[2020-04-19] MEDS: Dextrose 5 % and 0.9 % NaCl 1,000 ML 100 ML IVCONT ×2 (08:30→13:12)
[2020-04-19] MEDS: mycophenolate mofetiL 250 MG CAPSULE 500 MG PO ×3 (08:31→21:07)
[2020-04-19] MEDS: Folic Acid 1 MG TABLET PO (08:31)
[2020-04-19] MEDS: 0.9 % Sodium Chloride Flush 3 ML SYRINGE IVFLUSH ×2 (08:31→16:06)
[2020-04-19 08:39] LABS: Magnesium 1.3 mg/dL (1.6-2.6)
[2020-04-19 08:44] LABS: SLIDE REVIEW VERIFIED
--- NOTE | 2020-04-19 09:07 | P.CNHO_ITS ---
Subjective - Subjective Chief complaint: consult for dizziness, Non-small cell lung cancer with liver mets. Consult date: 04/19/20 Requesting Physician: Dr. Casiano Primary Care Provider: Yuni Angeles Medical Summary: DIAGNOSIS: NON-SMALL CELL LUNG CARCINOMA. HPI - Consult Narrative Reason for consult: Non-small cell lung carcinoma. Narrative: Leonard Paz is a pleasant 59 year old gentleman,presenting with dizziness yesterday. He has a history of Non-small cell lung carcinoma with metastasis to the liver and Myelofibrosis. He is currently under treatment with immunotherapy. He was getting ready to leave his house for oncology, when suddenly he started to feel dizzy. He also stated that he has had some nausea and diarrhea since last week. He has not been eating well. He has a history of hypotension and was told to follow up if he felt dizzy. He was discharged from [facility] in December of 2019. At that time he was treated for acute on chronic pancreatitis. He was transferred to [facility] for evacuation of pancreatic pseudocysts. Here, he was noted to have an elevated WBC, magnesium of 0.7 that was repleted. He was given pain medication and zofran. Review of Systems - Constitutional Reports body aches, Reports fatigue, Denies fever(s), Reports lack of energy, Reports malaise, Reports weakness, Reports weight loss - Eyes Denies blurry vision - ENT Reports no additional ear, nose, mouth, and throat complaints - Cardiovascular Denies chest pain with activity - Respiratory Denies cough - Gastrointestinal Reports abdominal pain, Reports change in bowel habits - Genitourinary Genitourinary: Denies urinary incontinence - Musculoskeletal Reports back pain - Integumentary/Breasts Skin/Breast: Denies bleeding lesions - Neurologic Reports no additional neurologic complaints, Denies abnormal speech, Denies headache(s), Denies numbness, Denies tingling, Denies weakness [facility] Medical History: Medical History (Last Reviewed 04/18/20 @ 08:53 by Dinorah Del Real NP) Lupus anticoagulant disorder Myelofibrosis Pancreatic pseudocyst Polycythemia vera TIA (transient ischemic attack) Functional capacity: uses cane/walker Patient : No Surgical History: Surgical History (Last Updated 04/18/20 @ 13:31 by Rachel Westfall NP) H/O hernia repair S/P herniorrhaphy Smoking status: Former smoker Home Medications and Allergies Current Medications: Current Medications Generic Name Dose Route Start Last Admin Trade Name Freq PRN Reason Stop Dose Admin Acetaminophen 650 mg 04/18/20 16:40 Acetaminophen 325 Mg Tablet PO Q6H PRN Pain, Mild (Pain Scale 1-3) Atorvastatin Calcium 20 mg 04/18/20 21:00 04/18/20 20:58 Atorvastatin Calcium 20 Mg Tablet PO 20 mg BEDTIME QUINTON Administration Docusate Sodium 100 mg 04/18/20 21:00 04/19/20 08:30 Docusate Sodium 100 Mg Capsule PO 100 mg BID QUINTON Administration Folic Acid 1 mg 04/19/20 09:00 04/19/20 08:31 Folic Acid 1 Mg Tablet PO 1 mg DAILY QUINTON Administration Hydromorphone HCl 0.5 mg 04/18/20 16:40 04/19/20 09:02 Hydromorphone Hcl 0.5 Mg/0.5 Ml Syringe IVPUSH 0.5 mg Q4H PRN Administration pain, knee pain Dextrose/Sodium Chloride 1,000 mls @ 100 mls/hr 04/18/20 16:40 04/19/20 08:30 D5ns IVCONT 100 mls/hr .Q10H QUINTON Administration Morphine Sulfate 30 mg 04/18/20 18:00 04/19/20 06:27 Morphine Sulfate Er 30 Mg Tablet.Er PO 30 mg Q12H QUINTON Administration Mycophenolate Mofetil 500 mg 04/18/20 21:00 04/19/20 08:31 Mycophenolate Mofetil 250 Mg Capsule PO 500 mg TID QUINTON Administration Non-Formulary Medication 1 cap 04/18/20 16:40 Gnnryz-Pjhjoqjl-Stkesix [Creon] PO TID QUINTON Omeprazole 20 mg 04/19/20 06:30 04/19/20 06:27 Omeprazole 20 Mg Capsule.Dr PO 20 mg DAILY@0630 QUINTON Administration Ondansetron HCl 4 mg 04/18/20 16:40 04/19/20 05:12 Ondansetron Hcl 4 Mg/2 Ml Vial IVPUSH 4 mg Q8H PRN Administration Nausea and Vomiting Ondansetron HCl 8 mg 04/18/20 16:47 04/19/20 01:09 Ondansetron Odt 8 Mg Tab.Rapdis TRANSLINGU 8 mg Q8H PRN Administration Nausea and Vomiting Pharmacy Consult 1 each 04/18/20 11:24 Consult Rx Perform Med Rec MISCELLANE ONCE PRN Consult order Rivaroxaban 20 mg 04/18/20 17:00 04/18/20 17:47 Rivaroxaban 20 Mg Tablet PO 20 mg DAILY@1700 QUINTON Administration Sodium Chloride 3 ml 04/18/20 16:40 04/19/20 08:31 0.9 % Sodium Chloride Flush 3 Ml Syringe IVFLUSH 3 ml QSHIFT [facility] Administration Tamsulosin HCl 0.4 mg 04/18/20 17:30 04/18/20 17:47 Tamsulosin Hcl 0.4 Mg Capsule PO 0.4 mg DAILY@1730 QUINTON Administration Thiamine HCl 100 mg 04/19/20 09:00 04/19/20 08:30 Thiamine Hcl 100 Mg Tablet PO 100 mg DAILY QUINTON Administration Home Medications Medication Instructions Recorded Confirmed Type Creon 1 cap PO TID 03/28/20 04/18/20 History atorvastatin 20 mg PO BEDTIME 03/28/20 04/18/20 History docusate sodium [Colace] 100 mg PO BID 03/28/20 04/18/20 History folic acid 1 mg PO DAILY 03/28/20 04/18/20 History mycophenolate mofetil [CellCept] 500 mg PO TID 03/28/20 04/18/20 History tamsulosin 0.4 mg PO DAILY 03/28/20 04/18/20 History omeprazole 20 mg PO DAILY 04/18/20 04/18/20 History thiamine HCl (vitamin B1) [Vitamin 100 mg PO DAILY 04/18/20 04/18/20 History B-1] Allergies Allergy/AdvReac Type Severity Reaction Status Date / Time oxycodone [OXYCODONE] Allergy Unknown VOMITING, Verified 04/29/20 13:54 nausea and vomiting Physical Exam Vital signs: Vital Signs Temp 98.0 F 04/19/20 07:50 Pulse 105 H 04/19/20 08:56 Resp 20 04/19/20 07:50 BP 94/50 L 04/19/20 08:56 Pulse Ox 98 04/19/20 07:50 Intake & Output 04/18/20 04/19/20 04/19/20 18:59 06:59 18:59 Intake Total 2150 / 3150 1000 / 3150 Output Total 725 / 725 Balance 2150 / 2425 275 / 2425 Urine Output (Average ml/kg/hr) 0.92 Intake: Intake, IV Amount 2150 / 3150 1000 / 3150 0.9 % Sodium Chloride 1,000 ml 2000 / 2000 @ 999 mls/hr IV .Q1H1M STA Rx#: [id number] Magnesium Sulfate/D5W 1 gm In 100 / 100 100 ml @ 100 mls/hr IV ONCE ONE Rx#:[id number] Magnesium Sulfate/H2O 2 gm In 50 / 50 50 ml @ 25 mls/hr IV ONCE ONE Rx#:[id number] Dextrose 5 % and 0.9 % NaCl 1, 1000 / 1000 000 ml @ 100 mls/hr IVCONT . Q10H QUINTON Rx#:[id number] Output: Output, Urine Amount 725 / 725 Other: Urine Urinal Urine Color Tea Weight 65.7 kg Weight 65.7 kg - Constitutional Present: mild distress - Routine HEENT Exam Head: Present: normal inspection ENT: Present: mucous membranes moist - Routine Neck Exam Present: supple - Routine Respiratory Exam Present: CTAB - Routine Cardiovascular Exam Cardiovascular: Present: RRR, S1, S2 - Routine Abdominal Exam Present: soft, tenderness - Routine Rectal Exam Patient deferred: digital exam - Routine Extremities Exam Present: nontender - Routine Skin Exam Present: intact - Routine Neurological Exam Present: alert, oriented X3 - Detailed Neurological Exam: Coma Scale Eye Opening: Spontaneous (4) Verbal Response: Oriented (5) - Routine Psychiatric Exam Present: depressed Hem/Onc Consult Result - Labs CBC & Chem 7: 04/22/20 05:50 04/22/20 13:27 Labs: Short CBC 04/18/20 04/19/20 Range/Units 09:28 06:18 WBC 17.0 H 15.6 H (4.8-10.8) X10*3/uL Hgb 9.7 L 8.5 L (14.0-18.0) g/dl Hct 30.0 L 26.9 L (42-52) % Plt Count 374 365 (160-400) X10*3/uL BMP 04/18/20 04/19/20 09:29 06:18 Sodium 144 143 Potassium 4.1 3.9 Chloride 109 H 113 H Carbon Dioxide 20 L 20 L BUN 24 H 17 H Creatinine 1.58 H 1.19 Calcium 7.0 L D 6.0 L* D Liver Function 04/18/20 Range/Units 09:29 Total Bilirubin 0.8 (0.0-1.0) mg/dL Direct Bilirubin 0.4 (0.0-0.5) mg/dL AST 16 (5-37) U/L ALT 7 (0-40) U/L Alkaline Phosphatase 145 H (39-117) U/L Albumin 2.8 L (3.5-5.0) g/dL Urine 04/18/20 Range/Units 13:53 Urine Color YELLOW Urine Appearance HAZY Urine pH 5.5 (5.0-8.0) Ur Specific [place] 1.025 (1.005-1.025) Urine Protein 1+ H (NEG-TRACE) MG/DL Urine Glucose (UA) NEG (NEG) MG/DL Assessment and Plan (1) Non-small cell carcinoma of lung Status: Acute this is a pleasant 59-year-old gentleman with history of non-small cell lung cancer with liver and bone metastases. He has been admitted with dizziness. Lung carcinoma. Under the treatment with Pembrolizumab. Leukocytosis: Chronically elevated, no signs of acute infection. This is related to his H/O MPN. Noted to have Orthostatic hypotension. He has not been eating, has had a Poor appetite recently. PLAN: Check orthostatic blood pressures regularly. He is recievingIV hydration, D5 normal saline. He has a Possible right knee effusion. Orthopedics have been consuled, meanwhile he is on pain medications. Hypomagnesemia: This was repleted in the ER, will continue to follow magnesium daily. He is on DVT prophylaxis with Rivaroxaban. he will for a follow up in oncology, next week to resume his treatment. Thanks, CC: Dr. Whitt
--- NOTE | 2020-04-19 10:30 | P.CDIC_ITS ---
CDI Concurrent Query Service Date: 04/19/20 Documentation Clarification: Please clarify if you are treating a proba ble/suspected/likely or confirmed: BODY MASS INDEX Mild, moderate or severe protein calorie malnutrition Please specify if known severe protein/calorie malnutrition Provider Response: Severe Protein-Calorie Malnutrition PLEASE DO NOT DELETE/MODIFY EXISTING CONTENGeneral - no acute distress, appears comfortable Cardiovascular - regular rate and rhythm, S1-S2 Lungs - normal respiratory effort, clear to auscultation bilaterally, no wheezing Abdomen - left sided abdominal pain without rebound or guarding Extremities - no edema bilaterally Neuro - awake and alert, no focal deficitsT Additional information is needed in order to code to the highest accuracy and appropriate Severity of Illness (SOI). Please clarify the information noted below in your progress notes and discharge summary. Risk Factors/Clinical Indicators/Treatments BMI 19.1 Total protein 5.6 Albumin 2.8 Non cell cancer with mets to liver and bone fatigue, lack of energy, weight loss. CDS: Natalie Quiles CCS, CDIS Contact Number: [phone] Please Review the information above and exercise your independent professional judgment in responding to the query. If you concur, pleas document in the PROGRESS NOTES and DISCHARGE SUMMARY. If you do not agree with the query, please document in the query above. THIS QUERY IS PART OF THE PERMANENT MEDICAL RECORD
--- NOTE | 2020-04-19 11:36 | MHC.CM.PN ---
CM met with patient at the bedside who reports he amb independently and lives alone. Patient does have a HCP dtr Daily Tesfaye [phone] and a copy is on file. Discussed discharge plan, home with resumption of [employer] and [facility] services. Referral made via [employer]scripts. [facility] will provide transport. CM will continue to follow patient for discharge needs.
--- NOTE | 2020-04-19 12:07 | MHC.CLN ---
PT IS SEVERELY MALNOURISHED RECOMMEND REGULAR DIET WITH ENSURE TID SEE ALSO NUTRITION ASSESSMENT
--- NOTE | 2020-04-19 13:50 | P.PNIM_ITS ---
Subjective Subjective Date of Service: 04/19/20 Interval History: seen and examined this AM no new complaints, dizziness improved knee pain persists General - no fevers or chills Cardiovascular - no chest pain Respiratory - no shortness of breath or cough Abdominal- no abdominal pain, nausea, vomiting, diarrhea Physical Exam Vital Signs: Vital Signs: Last Vital Signs Temp 99.8 F 04/19/20 11:34 Pulse 82 04/19/20 11:34 Resp 20 04/19/20 11:34 BP 118/65 04/19/20 11:34 Pulse Ox 99 04/19/20 11:34 Body Mass Index 20.2 Const: Other: General - chronically ill appearing Cardiovascular - regular rate and rhythm, S1-S2 Lungs - normal respiratory effort, clear to auscultation bilaterally, no wheezing Abdomen - soft, non-tender, no rebound or guarding Extremities - R Knee swelling / tenderness / erythema - no significant change from yesterday Neuro - awake and alert, no focal deficits Objective Data Current Medications Generic Name Dose Route Start Last Admin Trade Name Freq PRN Reason Stop Dose Admin Acetaminophen 650 mg 04/18/20 16:40 Acetaminophen 325 Mg Tablet PO Q6H PRN Pain, Mild (Pain Scale 1-3) Atorvastatin Calcium 20 mg 04/18/20 21:00 04/18/20 20:58 Atorvastatin Calcium 20 Mg Tablet PO 20 mg BEDTIME [facility] Administration Calcium Carbonate 500 mg 04/19/20 15:00 Calcium Carbonate 500 Mg Tablet PO TID [facility] Docusate Sodium 100 mg 04/18/20 21:00 04/19/20 08:30 Docusate Sodium 100 Mg Capsule PO 100 mg BID [facility] Administration Folic Acid 1 mg 04/19/20 09:00 04/19/20 08:31 Folic Acid 1 Mg Tablet PO 1 mg DAILY [facility] Administration Hydromorphone HCl 0.5 mg 04/18/20 16:40 04/19/20 13:01 Hydromorphone Hcl 0.5 Mg/0.5 Ml Syringe IVPUSH 0.5 mg Q4H PRN Administration pain, knee pain Magnesium Sulfate 2 gm in 50 mls @ 25 mls/hr 04/19/20 13:46 IV 04/19/20 15:45 ONCE ONE Magnesium Oxide 400 mg 04/19/20 17:30 Magnesium Oxide 400 Mg Tablet PO BIDPC [facility] Morphine Sulfate 30 mg 04/18/20 18:00 04/19/20 06:27 Morphine Sulfate Er 30 Mg Tablet.Er PO 30 mg Q12H [facility] Administration Mycophenolate Mofetil 500 mg 04/18/20 21:00 04/19/20 08:31 Mycophenolate Mofetil 250 Mg Capsule PO 500 mg TID [facility] Administration Non-Formulary Medication 1 cap 04/18/20 16:40 Bkbzcr-Sjreipti-Frdukcb [Creon] PO TID [facility] Omeprazole 20 mg 04/19/20 06:30 04/19/20 06:27 Omeprazole 20 Mg Capsule.Dr PO 20 mg DAILY@0630 [facility] Administration Ondansetron HCl 4 mg 04/18/20 16:40 04/19/20 13:06 Ondansetron Hcl 4 Mg/2 Ml Vial IVPUSH 4 mg Q8H PRN Administration Nausea and Vomiting Ondansetron HCl 8 mg 04/18/20 16:47 04/19/20 01:09 Ondansetron Odt 8 Mg Tab.Rapdis TRANSLINGU 8 mg Q8H PRN Administration Nausea and Vomiting Pharmacy Consult 1 each 04/18/20 11:24 Consult Rx Perform Med Rec MISCELLANE ONCE PRN Consult order Rivaroxaban 20 mg 04/18/20 17:00 04/18/20 17:47 Rivaroxaban 20 Mg Tablet PO 20 mg DAILY@1700 [facility] Administration Sodium Chloride 3 ml 04/18/20 16:40 04/19/20 08:31 0.9 % Sodium Chloride Flush 3 Ml Syringe IVFLUSH 3 ml QSHIFT [facility] Administration Tamsulosin HCl 0.4 mg 04/18/20 17:30 04/18/20 17:47 Tamsulosin Hcl 0.4 Mg Capsule PO 0.4 mg DAILY@1730 [facility] Administration Thiamine HCl 100 mg 04/19/20 09:00 04/19/20 08:30 Thiamine Hcl 100 Mg Tablet PO 100 mg DAILY [facility] Administration Labs CBC & Chem 7: 04/19/20 06:18 04/19/20 06:18 Microbiology Microbiology Results: Microbiology 04/18/20 09:30 Blood - Venous Blood Culture - Preliminary No growth after 24 hours. 04/18/20 09:30 Blood - Venous Blood Culture - Preliminary No growth after 24 hours. 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 1. Orthostatic hypotension due to poor oral intake improving with fluids give 1L bolus now and reassess ortho afterwards 2. R Knee pain ? bursitis no effusion seen on XR ortho consulted hold off on antibiotics 3. Severe protein calorie malutrion supplements per nutrition recs 4. HypoCa and HypoMg replete with PO and IV as needed 5. Leukocytosis/Anemia both chronic in nature, monitor closely 6. History of lupus anticoagulant on xarelto, continue Full Code DVT pptx, xarelto
[2020-04-19] MEDS: Lactated Ringers 1,000 ML 999 ML IVCONT (14:52)
[2020-04-19 15:36] LABS: Hematocrit 27.9 % (42-52); Hemoglobin 8.8 g/dl (14.0-18.0)
[2020-04-19] MEDS: Rivaroxaban 20 MG TABLET PO (16:06)
[2020-04-19] MEDS: Magnesium Sulfate/H2O 2 GM/50 ML PIGGYBACK IV (16:06)
[2020-04-19] MEDS: Magnesium Oxide 400 MG TABLET PO (17:16)
[2020-04-19] MEDS: Tamsulosin HCL 0.4 MG CAPSULE PO (17:16)
[2020-04-19] MEDS: Piperacillin Sodium/Tazobactam 3.375 GM in 0.9 % Sodium Chloride 50 ML IV (20:38)
[2020-04-19 20:42] LABS: Lactic Acid 1.9 mmol/L (0.5-2.0)
[2020-04-19] MEDS: Atorvastatin Calcium 20 MG TABLET PO (21:07)
[2020-04-20] VITALS (9 sets, daily range): BP systolic 76–112; BP diastolic 48–68; PULSE 80–110; RESP 18–20; TEMP 36.6–37.9; O2SAT 93–98
[2020-04-20] MEDS: 0.9 % Sodium Chloride Flush 3 ML SYRINGE IVFLUSH (01:18)
[2020-04-20] MEDS: HYDROmorphone HCl 0.5 MG/0.5 ML SYRINGE IVPUSH ×4 (01:21→14:49)
[2020-04-20] MEDS: Piperacillin Sodium/Tazobactam 3.375 GM in 0.9 % Sodium Chloride 50 ML IV ×4 (01:29→19:18)
[2020-04-20] MEDS: Morphine Sulfate ER 30 MG TABLET.ER PO ×2 (05:43→17:35)
[2020-04-20] MEDS: Omeprazole 20 MG CAPSULE.DR PO (05:43)
[2020-04-20 06:51] LABS: Hematocrit 27.6 % (42-52); Hemoglobin 8.7 g/dl (14.0-18.0); Mean Corpuscular HGB Conc 31.5 g/dl (31.0-36.0); Mean Corpuscular Hemoglobin 27.1 pg (27.0-33.0); Mean Platelet Volume 11.3 fL (9.4-12.4); NRBC Pct Auto 0.2 /100WBC (0.0-0.2); Platelet Count 350 X10*3/uL (160-400); Red Blood Count 3.21 X10*6/uL (4.60-5.80); Red Cell Distribution Width 16.1 % (11.0-16.0)
[2020-04-20] MEDS: mycophenolate mofetiL 250 MG CAPSULE 500 MG PO ×3 (07:59→21:49)
[2020-04-20] MEDS: Magnesium Oxide 400 MG TABLET PO (07:59)
[2020-04-20] MEDS: Folic Acid 1 MG TABLET PO (07:59)
[2020-04-20] MEDS: Thiamine HCL 100 MG TABLET PO (07:59)
[2020-04-20] MEDS: Lactated Ringers 1,000 ML 100 ML IVCONT ×2 (08:41→20:57)
[2020-04-20] MEDS: vancomycin HCL 750 MG in 0.9 % Sodium Chloride 250 ML 265 MG IV ×2 (10:55→23:24)
[2020-04-20 11:07] LABS: Anion Gap 15 (12-20); Blood Urea Nitrogen 11 mg/dL (9-16); Calcium 6.1 mg/dL (8.4-10.2); Carbon Dioxide 20 mmol/L (22-29); Chloride 112 mmol/L (96-108); Estimated Glomerular Filt Rate 48; Glucose Random 127 mg/dL (60-115); Magnesium 1.5 mg/dL (1.6-2.6); Potassium 4.3 mmol/l (3.3-5.1); Sodium 143 mmol/L (135-145)
--- NOTE | 2020-04-20 11:18 | MHC.CM.PN ---
Per ROUNDS discussion, Patient is having temps and is not yet medically cleared for dc. The goal for dc continues to be home with resumption of [facility] [employer] services. CM will continue to follow for dc planning and the possible need to adjust the dc plan.
--- NOTE | 2020-04-20 12:44 | P.PNIM_ITS ---
Subjective Subjective Date of Service: 04/20/20 Interval History: seen and examined this AM overnight events noted -- spiked a temperature last night, cultured and started on antibiotics this AM patient tells me that his fever yesterday was not real. he says that he had no symptoms associated with fever and so does not believe he had a temp. he reports knee pain but denies dizziness. he asks me if he can go home but does tell me he'll stay if needed ROS General - no fevers or chills Cardiovascular - no chest pain Respiratory - no shortness of breath or cough Abdominal- no abdominal pain, nausea, vomiting, diarrhea MSK -- knee pain Physical Exam Vital Signs: Vital Signs: Last Vital Signs Temp 100.2 F 04/20/20 11:46 Pulse 109 H 04/20/20 11:46 Resp 18 04/20/20 11:46 BP 98/66 04/20/20 11:46 Pulse Ox 96 04/20/20 11:46 Body Mass Index 20.2 Const: Other: General - chronically ill appearing Cardiovascular - regular rate and rhythm, S1-S2 Lungs - normal respiratory effort, clear to auscultation bilaterally, no wheezing Abdomen - soft, non-tender, no rebound or guarding Extremities - R Knee swelling / tenderness / erythema - remains unchanged Neuro - awake and alert, no focal deficits Objective Data Current Medications Generic Name Dose Route Start Last Admin Trade Name Freq PRN Reason Stop Dose Admin Acetaminophen 650 mg 04/18/20 16:40 Acetaminophen 325 Mg Tablet PO Q6H PRN Pain, Mild (Pain Scale 1-3) Atorvastatin Calcium 20 mg 04/18/20 21:00 04/19/20 21:07 Atorvastatin Calcium 20 Mg Tablet PO 20 mg BEDTIME [facility] Administration Calcium Carbonate 500 mg 04/19/20 15:00 04/20/20 07:59 Calcium Carbonate 500 Mg Tablet PO 500 mg TID [facility] Administration Docusate Sodium 100 mg 04/18/20 21:00 04/20/20 07:59 Docusate Sodium 100 Mg Capsule PO Not Given BID [facility] Folic Acid 1 mg 04/19/20 09:00 04/20/20 07:59 Folic Acid 1 Mg Tablet PO 1 mg DAILY [facility] Administration Hydromorphone HCl 0.5 mg 04/18/20 16:40 04/20/20 10:56 Hydromorphone Hcl 0.5 Mg/0.5 Ml Syringe IVPUSH 0.5 mg Q4H PRN Administration pain, knee pain Piperacillin Sod/Tazobactam 50 mls @ 100 mls/hr 04/19/20 19:15 04/20/20 08:44 Sod 3.375 gm/ Sodium Chloride IV Infused Q6H [facility] Infusion Lactated Ringer's 1,000 mls @ 100 mls/hr 04/20/20 08:00 04/20/20 08:41 Lr IVCONT 100 mls/hr .Q10H [facility] Administration Vancomycin HCl 750 mg/ Sodium 265 mls @ 265 mls/hr 04/20/20 11:00 04/20/20 12:02 Chloride IV Infused Q12H [facility] Infusion Magnesium Oxide 400 mg 04/19/20 17:30 04/20/20 07:59 Magnesium Oxide 400 Mg Tablet PO 400 mg BIDPC [facility] Administration Morphine Sulfate 30 mg 04/18/20 18:00 04/20/20 05:43 Morphine Sulfate Er 30 Mg Tablet.Er PO 30 mg Q12H [facility] Administration Mycophenolate Mofetil 500 mg 04/18/20 21:00 04/20/20 07:59 Mycophenolate Mofetil 250 Mg Capsule PO 500 mg TID [facility] Administration Non-Formulary Medication 1 cap 04/18/20 16:40 Itscpq-Viqeibrr-Digkymy [Creon] PO TID [facility] Omeprazole 20 mg 04/19/20 06:30 04/20/20 05:43 Omeprazole 20 Mg Capsule.Dr PO 20 mg DAILY@0630 [facility] Administration Ondansetron HCl 4 mg 04/18/20 16:40 04/19/20 13:06 Ondansetron Hcl 4 Mg/2 Ml Vial IVPUSH 4 mg Q8H PRN Administration Nausea and Vomiting Ondansetron HCl 8 mg 04/18/20 16:47 04/19/20 01:09 Ondansetron Odt 8 Mg Tab.Rapdis TRANSLINGU 8 mg Q8H PRN Administration Nausea and Vomiting Pharmacy Consult 1 each 04/18/20 11:24 Consult Rx Perform Med Rec MISCELLANE ONCE PRN Consult order Rivaroxaban 20 mg 04/18/20 17:00 04/19/20 16:06 Rivaroxaban 20 Mg Tablet PO 20 mg DAILY@1700 [facility] Administration Sodium Chloride 3 ml 04/18/20 16:40 04/20/20 09:11 0.9 % Sodium Chloride Flush 3 Ml Syringe IVFLUSH Not Given QSHIFT [facility] Tamsulosin HCl 0.4 mg 04/18/20 17:30 04/19/20 17:16 Tamsulosin Hcl 0.4 Mg Capsule PO 0.4 mg DAILY@1730 [facility] Administration Thiamine HCl 100 mg 04/19/20 09:00 04/20/20 07:59 Thiamine Hcl 100 Mg Tablet PO 100 mg DAILY [facility] Administration Labs CBC & Chem 7: 04/20/20 05:29 04/20/20 09:36 Microbiology Microbiology Results: Microbiology 04/18/20 09:30 Blood - Venous Blood Culture - Preliminary No growth after 48 hours. 04/18/20 09:30 Blood - Venous Blood Culture - Preliminary No growth after 48 hours. 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 1. Fevers suspect R knee is the source. Ortho has been consulted and apparently has seen the patient. Have informed them to the patients fevers from yesterday evening and to f/u as he may need intervention now that he has fevers in the mean time, started on empirically on zosyn yesterday evening, will add vancomyin and ask ID for input f/u cultures 2. Orthostatic hypotension due to poor oral intake improving with fluids dizziness resolved 3. R Knee pain see fevers above 3. Severe protein calorie malnutrition supplements per nutrition recs 4. HypoCa and HypoMg corrected Ca is around 7.1 PO calcium / Mag replete scheduled; give 1 dose IV Mag 5. Leukocytosis/Anemia both chronic in nature, monitor closely 6. History of lupus anticoagulant on xarelto -- hold until repeat ortho eval incase surgical intervention needed. Full Code DVT pptx, xarelto/mechanical
[2020-04-20] MEDS: Magnesium Sulfate/H2O 2 GM/50 ML PIGGYBACK IV (14:26)
--- NOTE | 2020-04-20 14:55 | P.CONOP_ITS ---
History of Present Illness HPI Consult date: 04/19/20 Chief complaint: orthostasis Narrative: This is a 59-year-old gentleman who presented to the emergency department due to feeling weak and dehydrated. He was found to have hypoMg and hypotension. He was admitted to the medical service but was complaining of right knee pain at this same time so orthopedics was consulted for evaluation. He denies injury to the right knee. Denies any treatment to the right knee in the past. States the pain developed about 4 days ago but has not been worsening over time it has stayed the same. Review of Systems Constitutional: Constitutional: Denies headache(s) and Reports weakness ENT: Reports dizziness and Denies headache(s) Musculoskeletal: Musculoskeletal: Denies numbness and Denies tingling Neurologic: Reports system reviewed and no additional complaints, except as documented, Denies Abnormal speech present, Reports dizziness, Denies headache(s), Denies numbness, Denies tingling and Reports weakness PMFSH Past Medical History Medical History (Updated 04/20/20 @ 15:03 by Joon Dudley PA-C) Lupus anticoagulant disorder Myelofibrosis Pancreatic pseudocyst Polycythemia vera TIA (transient ischemic attack) Functional capacity: uses cane/walker Surgical History Surgical History (Updated 04/19/20 @ 09:15 by Yuni Angeles MD) H/O hernia repair S/P herniorrhaphy Social History Social History Household Members: None Housing: Unknown / Unable to assess Alcohol intake: never Smoking Status: Former smoker Use of substances other than those prescribed or required for medical reasons: No Currently Displaying Signs/Symptoms of Drug Intoxication Withdrawal: No Any prior treatment program specific to substance use: No Have you been hit, kicked, punched, or otherwise hurt by someone within the past year? If so, by whom?: No Do you feel safe in your current relationship?: No Current Relationship Is there a partner from a previous relationship who is making you feel unsafe now?: No Are you made to feel afraid or neglected: No Advance Directives: No Advance Directives Information Provided: Yes Do you have thoughts of harming others: None Do you have a plan to hurt others: No Plan Recently lost weight without trying: Yes service: Yes Current occupational status: disabled Meds Allergies Allergy/AdvReac Type Severity Reaction Status Date / Time oxycodone [OXYCODONE] Allergy Unknown VOMITING, Verified 04/18/20 09:40 nausea and vomiting Home Medications Medication Instructions Recorded Confirmed Type atorvastatin 20 mg PO BEDTIME 03/28/20 04/18/20 History docusate sodium [Colace] 100 mg PO BID 03/28/20 04/18/20 History doxycycline hyclate 100 mg PO BID 03/28/20 04/18/20 History folic acid 1 mg PO DAILY 03/28/20 04/18/20 History luucqu-trqvrwvp-ebcyvls [Creon] 1 cap PO TID 03/28/20 04/18/20 History mycophenolate mofetil [CellCept] 500 mg PO TID 03/28/20 04/18/20 History tamsulosin 0.4 mg PO DAILY 03/28/20 04/18/20 History omeprazole 20 mg PO DAILY 04/18/20 04/18/20 History thiamine HCl (vitamin B1) [Vitamin 100 mg PO DAILY 04/18/20 04/18/20 History B-1] Physical Exam Vital Signs: Vital Signs: Last Vital Signs Temp 100.2 F 04/20/20 11:46 Pulse 109 H 04/20/20 11:46 Resp 18 04/20/20 11:46 BP 98/66 04/20/20 11:46 Pulse Ox 96 04/20/20 11:46 Body Mass Index 20.2 Const: General: cooperative and no acute distress Orientation/conscio usness: patient oriented x3 Resp: Effort & Inspection: normal respiratory effort and able to speak in complete sentences Cardio: Peripheral pulses: Peripheral pulses 2+ throughout Neuro: General: patient oriented x3 Speech: No Abnormal speech present Extrem: Other: Knee skin intact. There is a minor amount erythema over the bursa of the patella with tenderness to palpation. PROM and AROM intact. No significant joint effusion present. Results Labs Result Diagrams: 04/20/20 05:29 04/20/20 09:36 Labs: Abnormal lab results 04/19/20 04/20/20 04/20/20 Range/Units 14:59 05:29 09:36 WBC 23.0 H (4.8-10.8) X10*3/uL RBC 3.21 L (4.60-5.80) X10*6/uL Hgb 8.8 L 8.7 L (14.0-18.0) g/dl Hct 27.9 L 27.6 L (42-52) % RDW 16.1 H (11.0-16.0) % Absolute Nucleated RBC 0.040 H (0.0-0.012) X10*3/uL Chloride 112 H (96-108) mmol/L Carbon Dioxide 20 L (22-29) mmol/L Creatinine 1.50 H (0.5-1.4) mg/dL Random Glucose 127 H (60-115) mg/dL Calcium 6.1 L (8.4-10.2) mg/dL Magnesium 1.5 L (1.6-2.6) mg/dL H & H 04/18/20 04/19/20 04/19/20 Range/Units 09:28 06:18 14:59 Hgb 9.7 L 8.5 L 8.8 L (14.0-18.0) g/dl Hct 30.0 L 26.9 L 27.9 L (42-52) % 04/20/20 Range/Units 05:29 Hgb 8.7 L (14.0-18.0) g/dl Hct 27.6 L (42-52) % All other labs normal. Assessment and Plan (1) Bursitis of right knee: Status: Acute I discussed the case with Dr. Cohen. There does not seem to be in infective source at this time. I recommend conservative treatment such as compression, anti-inflammatories and physical therapy. No surgical intervention at this time. No joint effusion appreciated for aspiration. Will continue to follow.
[2020-04-20] MEDS: Magnesium Oxide 400 MG TABLET 800 MG PO (17:35)
[2020-04-20] MEDS: Acetaminophen 325 MG TABLET 650 MG PO (17:35)
[2020-04-20] MEDS: Tamsulosin HCL 0.4 MG CAPSULE PO (17:36)
[2020-04-20] MEDS: 0.9 % Sodium Chloride 500 ML 999 ML IVCONT (19:58)
[2020-04-20] MEDS: Atorvastatin Calcium 20 MG TABLET PO (21:49)
[2020-04-20] MEDS: Docusate Sodium 100 MG CAPSULE PO (21:49)
[2020-04-20] MEDS: 0.9 % Sodium Chloride 1,000 ML 999 ML IVCONT (22:07)
[2020-04-21] VITALS (11 sets, daily range): BP systolic 89–120; BP diastolic 57–82; PULSE 75–124; RESP 18–20; TEMP 36.2–37.1; O2SAT 95–98
[2020-04-21] MEDS: 0.9 % Sodium Chloride 1,000 ML 999 ML IVCONT (01:10)
[2020-04-21] MEDS: Piperacillin Sodium/Tazobactam 3.375 GM in 0.9 % Sodium Chloride 50 ML IV ×3 (01:10→14:05)
[2020-04-21] MEDS: Omeprazole 20 MG CAPSULE.DR PO (05:32)
[2020-04-21] MEDS: Morphine Sulfate ER 30 MG TABLET.ER PO ×2 (05:32→19:51)
[2020-04-21] MEDS: HYDROmorphone HCl 0.5 MG/0.5 ML SYRINGE 0.25 MG IVPUSH ×3 (05:33→19:41)
[2020-04-21] MEDS: ondansetron HCL 4 MG/2 ML VIAL IVPUSH (06:39)
[2020-04-21 06:51] LABS: Hemoglobin 8.2 g/dl (14.0-18.0); Mean Corpuscular HGB Conc 31.5 g/dl (31.0-36.0); Mean Corpuscular Hemoglobin 27.2 pg (27.0-33.0); Mean Corpuscular Volume 86.4 fL (80-98); Mean Platelet Volume 10.9 fL (9.4-12.4); Platelet Count 297 X10*3/uL (160-400); Red Blood Count 3.01 X10*6/uL (4.60-5.80); Red Cell Distribution Width 16.4 % (11.0-16.0); White Blood Count 17.7 X10*3/uL (4.8-10.8)
[2020-04-21 07:20] LABS: Blood Urea Nitrogen 13 mg/dL (9-16); Calcium 5.9 mg/dL (8.4-10.2); Creatinine Clr Calc Pharmacy 51.8; Estimated Glomerular Filt Rate 52; Glucose Random 74 mg/dL (60-115)
[2020-04-21 07:30] LABS: Anion Gap 12 (12-20); Carbon Dioxide 21 mmol/L (22-29); Chloride 114 mmol/L (96-108); Sodium 143 mmol/L (135-145)
[2020-04-21 07:45] LABS: Albumin Level 2.1 g/dL (3.5-5.0)
[2020-04-21] MEDS: Folic Acid 1 MG TABLET PO (08:05)
[2020-04-21] MEDS: Thiamine HCL 100 MG TABLET PO (08:05)
[2020-04-21] MEDS: Magnesium Oxide 400 MG TABLET 800 MG PO ×2 (08:05→19:36)
[2020-04-21] MEDS: mycophenolate mofetiL 250 MG CAPSULE 500 MG PO ×3 (08:05→23:11)
[2020-04-21] MEDS: 0.9 % Sodium Chloride Flush 3 ML SYRINGE IVFLUSH ×3 (08:13→23:12)
--- NOTE | 2020-04-21 08:53 | PM.EVENT ---
Event Note Date of Service: 04/21/20 Event Note: Patient seen today at bedside with Dr Cohen. Right knee no effusion, PROM and AROM intact. Slight tenderness with palpation over the patella No surgical intervention warranted Recommend up and out of bed, ellie wrap.
[2020-04-21] MEDS: Calcium Gluconate/NaCl,Iso-Osm 2 GM/100 ML PLAST..BAG IV (08:56)
[2020-04-21] MEDS: Acetaminophen 325 MG TABLET 650 MG PO (09:00)
[2020-04-21 09:05] LABS: Glucose Urine UA NEG (NEG); Leukocyte Esterase Urine NEG (NEG); Nitrite Urine NEG (NEG); Urine Blood TRACE (NEG); Urine Ketones NEG (NEG); Urine Protein TRACE MG/DL (NEG-TRACE)
[2020-04-21 09:06] LABS: Appearance Urine CLEAR; Color Urine YELLOW
[2020-04-21 09:14] LABS: Mucus Urine TRACE /LPF; RBC Urine 0-2 /HPF (0); Renal Epithelial Cells Urine TRACE /LPF; Squamous Epithelial Cell Urine TRACE /LPF; WBC Urine 0-2 /HPF (0-4)
--- NOTE | 2020-04-21 10:43 | PM.CNNEP ---
History of Present Illness Reason for Consult Consult date: 04/21/20 Chief Complaint Chief complaint: orthostasis History of Present Illness Narrative: Seen and examined. Chart reveiwed. Adnm with gen ,malaise and LHeaded/OH and hypoCa, HypoMg underlying mark CA and malnutrtion. H/o [place] based Tx which can cause urinary Mg wasting. Overall feeling better. No tingling of hands/or mouth Ca and Mg better now after replacement Review of Systems Review of Systems Denies any recent fever chills or decrease in appetite respiratory denies any shortness of breath coverage production cardiovascular is adjustment of any PND or edema gastrointestinal denies any dysphagia abdominal pain nausea vomiting or diarrhea genitourinary denies any dysuria frequency or hematuria musculoskeletal see HPI neuropsych see HPI all other systems reviewed are negative Constitutional: Denies headache(s) and Reports weakness Reports dizziness and Denies headache(s) Musculoskeletal: Denies numbness and Denies tingling Reports system reviewed and no additional complaints, except as documented, Denies Abnormal speech present, Reports dizziness, Denies headache(s), Denies numbness, Denies tingling and Reports weakness PMFSH Past Medical History Medical History (Updated 04/20/20 @ 15:03 by Joon Dudley PA-C) Lupus anticoagulant disorder Myelofibrosis Pancreatic pseudocyst Polycythemia vera TIA (transient ischemic attack) Functional capacity: uses cane/walker Family History Pertinent family history: denies cardiac disease Surgical History Surgical History (Updated 04/19/20 @ 09:15 by Yuni Angeles MD) H/O hernia repair S/P herniorrhaphy Social History Social History Household Members: None Housing: Unknown / Unable to assess Alcohol intake: never Smoking Status: Former smoker Use of substances other than those prescribed or required for medical reasons: No Currently Displaying Signs/Symptoms of Drug Intoxication Withdrawal: No Any prior treatment program specific to substance use: No Have you been hit, kicked, punched, or otherwise hurt by someone within the past year? If so, by whom?: No Do you feel safe in your current relationship?: No Current Relationship Is there a partner from a previous relationship who is making you feel unsafe now?: No Are you made to feel afraid or neglected: No Advance Directives: No Advance Directives Information Provided: Yes Do you have thoughts of harming others: None Do you have a plan to hurt others: No Plan Recently lost weight without trying: Yes service: Yes Current occupational status: disabled Meds Allergies Allergy/AdvReac Type Severity Reaction Status Date / Time oxycodone [OXYCODONE] Allergy Unknown VOMITING, Verified 04/18/20 09:40 nausea and vomiting Home Medications Medication Instructions Recorded Confirmed Type atorvastatin 20 mg PO BEDTIME 03/28/20 04/18/20 History docusate sodium [Colace] 100 mg PO BID 03/28/20 04/18/20 History doxycycline hyclate 100 mg PO BID 03/28/20 04/18/20 History folic acid 1 mg PO DAILY 03/28/20 04/18/20 History gmpgxj-sszqooly-mxcxcvn [Creon] 1 cap PO TID 03/28/20 04/18/20 History mycophenolate mofetil [CellCept] 500 mg PO TID 03/28/20 04/18/20 History tamsulosin 0.4 mg PO DAILY 03/28/20 04/18/20 History omeprazole 20 mg PO DAILY 04/18/20 04/18/20 History thiamine HCl (vitamin B1) [Vitamin 100 mg PO DAILY 04/18/20 04/18/20 History B-1] Physical Exam Vital Signs: Last Vital Signs Temp 98.1 F 04/21/20 08:00 Pulse 124 H 04/21/20 08:09 Resp 18 04/21/20 08:00 BP 120/67 04/21/20 08:09 Pulse Ox 96 04/21/20 08:00 Body Mass Index 20.2 Const Other: General - chronically ill appearing Cardiovascular - regular rate and rhythm, S1-S2 Lungs - normal respiratory effort, clear to auscultation bilaterally, no wheezing Abdomen - soft, non-tender, no rebound or guarding Extremities - R Knee swelling / tenderness / erythema - remains unchanged Neuro - awake and alert, no focal deficits General: cooperative, comfortable and no acute distress Orientation/consciousness: patient oriented x3 Limitations: no limitations HENMT Other: Tacky mucous membranes Head: Yes normal to inspection Ears: hearing grossly normal bilaterally General nose exam: Normal external nose present Face and sinus: Yes normal facial exam Throat: Yes posterior oropharynx normal Eyes General: appearance normal, both eyes and all related structures Pupils: Equal, round and reactive pupils present Neck Neck: Yes normal visual inspection Chest Chest palpation & inspection: normal inspection of the chest Resp Effort & Inspection: normal respiratory effort and able to speak in complete sentences Auscultation: clear to auscultation bilaterally Cardio Other: General - chronically ill appearing Cardiovascular - regular rate and rhythm, S1-S2 Lungs - normal respiratory effort, clear to auscultation bilaterally, no wheezing Abdomen - soft, non-tender, no rebound or guarding Extremities - R Knee swelling / tenderness / erythema - remains unchanged Neuro - awake and alert, no focal deficits Rate: regular rate Rhythm: regular rhythm Peripheral pulses: Peripheral pulses 2+ throughout GI Inspection: Yes normal to inspection Palpation (GI): Soft to palpation and nontender Auscultation: normal bowel sounds Back/Spine/Pelvis Thoracic/Lumbar Spine: thoracic and lumbar spine normal to inspection Skin General skin exam: no rashes or lesions noted Neuro Other: [id number] normal. Unable to perform heel to brooke to the right knee pain. Unable to assess gait this time. General: patient oriented x3, no focal motor deficits, normal sensation to monofilament and Unable to assess gait Cranial nerves: Yes Equal, round and reactive pupils present Cognition (Neuro): normal cognition Speech: No Abnormal speech present Gait exam (Neuro): Unable to assess gait Motor exam (neuro): 5/5 motor strength present throughout Extrem Other: Knee skin intact. There is a minor amount erythema over the bursa of the patella with tenderness to palpation. PROM and AROM intact. No significant joint effusion present. General: Yes normal to inspection Results Lab Results Result Diagrams: 04/21/20 05:54 04/21/20 05:54 Lab results: Chemistry 04/18/20 04/19/20 04/20/20 09:29 06:18 09:36 Sodium 144 143 143 Potassium 4.1 3.9 4.3 Carbon Dioxide 20 L 20 L 20 L BUN 24 H 17 H 11 Creatinine 1.58 H 1.19 1.50 H Calcium 7.0 L D 6.0 L* D 6.1 L 04/21/20 05:54 Sodium 143 Potassium 4.0 Carbon Dioxide 21 L BUN 13 Creatinine 1.39 Calcium 5.9 L* Hematology 04/19/20 04/19/20 04/20/20 06:18 14:59 05:29 WBC 15.6 H 23.0 H Hgb 8.5 L 8.8 L 8.7 L Plt Count 365 350 04/21/20 05:54 WBC 17.7 H Hgb 8.2 L Plt Count 297 Urinalysis 04/18/20 04/20/20 13:53 09:36 Urine Color YELLOW YELLOW Urine Appearance HAZY CLEAR Urine pH 5.5 6.0 Ur Specific [place] 1.025 1.020 Urine Protein 1+ H TRACE Urine Glucose (UA) NEG NEG Urine Ketones 15 NEG Urine Blood NEG TRACE Urine Nitrite NEG NEG Ur Leukocyte Esterase NEG NEG Urine RBC 0 0-2 Urine WBC 0-2 0-2 Ur Squamous Epith Cells 2+ TRACE Assessment and Plan (1) Bursitis of right knee: Status: Acute CKD 3: Scr satble HypoCa: even with corection for low alb CA reamins low; suspect d/t combiantion of factors including hypoMg and malnutrtion and ques vit D def state; I do not see him having gotten denusamab or bisphoshonates which can lower Ca; hypopara is very unlikely ( very rare disorder) Hypoalb REC: cont IV/PO Ca and Mg replacement; start vit D ( I will order) bu check vit D level first and PTH; urine Mg testing to see if he has urine Mg wasting; check Up/Cr ratio as well Will follow clsoley with team
[2020-04-21] MEDS: vancomycin HCL 750 MG in 0.9 % Sodium Chloride 250 ML 265 MG IV (11:06)
[2020-04-21] MEDS: Lactated Ringers 1,000 ML 100 ML IVCONT ×2 (11:07→23:18)
[2020-04-21 15:14] LABS: Vitamin D 25-OH Total 24.8 ng/mL (>30)
--- NOTE | 2020-04-21 17:04 | P.PNIM_ITS ---
Subjective Subjective Date of Service: 04/21/20 Interval History: seen and examined this AM seen and examined knee pain improved significantly ROS General - no fevers or chills Cardiovascular - no chest pain Respiratory - no shortness of breath or cough Abdominal- no abdominal pain, nausea, vomiting, diarrhea MSK -- knee pain, improved Physical Exam Vital Signs: Vital Signs: Last Vital Signs Temp 98.2 F 04/21/20 15:55 Pulse 80 04/21/20 15:55 Resp 18 04/21/20 15:55 BP 111/75 04/21/20 15:55 Pulse Ox 97 04/21/20 15:55 Body Mass Index 20.2 Const: Other: General - chronically ill appearing Cardiovascular - regular rate and rhythm, S1-S2 Lungs - normal respiratory effort, clear to auscultation bilaterally, no wheezing Abdomen - soft, non-tender, no rebound or guarding Extremities - R Knee swelling / tenderness / erythema - all significantly improved Neuro - awake and alert, no focal deficits Objective Data Current Medications Generic Name Dose Route Start Last Admin Trade Name Brunoq PRN Reason Stop Dose Admin Acetaminophen 650 mg 04/18/20 16:40 04/21/20 09:00 Acetaminophen 325 Mg Tablet PO 650 mg Q6H PRN Administration Pain, Mild (Pain Scale 1-3) Atorvastatin Calcium 20 mg 04/18/20 21:00 04/20/20 21:49 Atorvastatin Calcium 20 Mg Tablet PO 20 mg BEDTIME QUINTON Administration Calcium Carbonate 500 mg 04/19/20 15:00 04/21/20 14:11 Calcium Carbonate 500 Mg Tablet PO 500 mg TID QUINTON Administration Docusate Sodium 100 mg 04/18/20 21:00 04/21/20 07:57 Docusate Sodium 100 Mg Capsule PO Not Given BID QUINTON Folic Acid 1 mg 04/19/20 09:00 04/21/20 08:05 Folic Acid 1 Mg Tablet PO 1 mg DAILY QUINTON Administration Hydromorphone HCl 0.25 mg 04/20/20 15:00 04/21/20 12:01 Hydromorphone Hcl 0.5 Mg/0.5 Ml Syringe IVPUSH 0.25 mg Q6H PRN Administration pain, knee pain Lactated Ringer's 1,000 mls @ 100 mls/hr 04/20/20 08:00 04/21/20 14:11 Lr IVCONT Not Given .Q10H QUINTON Cefazolin Sodium 1 gm/ Sodium 50 mls @ 100 mls/hr 04/21/20 16:00 Chloride IV Q8H [facility] Magnesium Oxide 800 mg 04/20/20 17:30 04/21/20 08:05 Magnesium Oxide 400 Mg Tablet PO 800 mg BIDPC [facility] Administration Morphine Sulfate 30 mg 04/18/20 18:00 04/21/20 05:32 Morphine Sulfate Er 30 Mg Tablet.Er PO 30 mg Q12H [facility] Administration Mycophenolate Mofetil 500 mg 04/18/20 21:00 04/21/20 14:11 Mycophenolate Mofetil 250 Mg Capsule PO 500 mg TID [facility] Administration Non-Formulary Medication 1 cap 04/18/20 16:40 Lgqmub-[id number]-Mpchtlr [Creon] PO TID [facility] Omeprazole 20 mg 04/19/20 06:30 04/21/20 05:32 Omeprazole 20 Mg Capsule.Dr PO 20 mg DAILY@0630 [facility] Administration Ondansetron HCl 4 mg 04/18/20 16:40 04/21/20 06:39 Ondansetron Hcl 4 Mg/2 Ml Vial IVPUSH 4 mg Q8H PRN Administration Nausea and Vomiting Ondansetron HCl 8 mg 04/18/20 16:47 04/19/20 01:09 Ondansetron Odt 8 Mg Tab.Rapdis TRANSLINGU 8 mg Q8H PRN Administration Nausea and Vomiting Pharmacy Consult 1 each 04/18/20 11:24 Consult Rx Perform Med Rec MISCELLANE ONCE PRN Consult order Rivaroxaban 20 mg 04/21/20 17:00 Rivaroxaban 20 Mg Tablet PO DAILY [facility] Sodium Chloride 3 ml 04/18/20 16:40 04/21/20 08:13 0.9 % Sodium Chloride Flush 3 Ml Syringe IVFLUSH 3 ml QSHIFT [facility] Administration Tamsulosin HCl 0.4 mg 04/18/20 17:30 04/20/20 17:36 Tamsulosin Hcl 0.4 Mg Capsule PO 0.4 mg DAILY@1730 [facility] Administration Thiamine HCl 100 mg 04/19/20 09:00 04/21/20 08:05 Thiamine Hcl 100 Mg Tablet PO 100 mg DAILY [facility] Administration Labs CBC & Chem 7: 04/21/20 05:54 04/21/20 05:54 Microbiology Microbiology Results: Microbiology 04/19/20 20:13 Blood - Venous Blood Culture - Preliminary No growth after 24 hours. 04/19/20 20:13 Blood - Venous Blood Culture - Preliminary No growth after 24 hours. 04/18/20 09:30 Blood - Venous Blood Culture - Preliminary No growth after 48 hours. 04/18/20 09:30 Blood - Venous Blood Culture - Preliminary No growth after 48 hours. 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 1. Fevers afebrile almost 48 hours blood cx negative to date stop vancomcyin/zosyn, switch to kefzol and likely keflex upon discharge suspected maybe minor cellulitis of the knee as source of fever 2. Orthostatic hypotension due to poor oral intake improving with fluids dizziness resolved 3. R Knee pain likely bursitis ortho input appreciated 3. Severe protein calorie malnutrition supplements per nutrition recs 4. HypoCa and HypoMg corrected Ca is around 7.1 continue PO repletement of Ca, ask nephrology 5. Leukocytosis/Anemia both chronic in nature, monitor closely 6. History of lupus anticoagulant continue xarelto Full Code DVT pptx, xarelto
[2020-04-21] MEDS: Rivaroxaban 20 MG TABLET PO (19:37)
[2020-04-21] MEDS: Tamsulosin HCL 0.4 MG CAPSULE PO (19:37)
[2020-04-21] MEDS: Atorvastatin Calcium 20 MG TABLET PO (23:11)
[2020-04-21] MEDS: Magnesium Hydrox/Alum Hydrox 30 ML ORAL.SUSP 15 ML PO (23:11)
[2020-04-22] VITALS: BP 122/69; PULSE 87; RESP 18; TEMP 36.9; O2SAT 95
[2020-04-22] MEDS: Ergocalciferol (Vitamin D2) 1,250 MCG CAPSULE 1250 MCG PO (00:05)
[2020-04-22] MEDS: HYDROmorphone HCl 0.5 MG/0.5 ML SYRINGE 0.25 MG IVPUSH ×3 (02:27→14:59)
[2020-04-22 03:44] VITALS: BP 123/72; PULSE 89; RESP 18; TEMP 36.8; O2SAT 95
[2020-04-22 05:57] LABS: Creatinine Urine 21.03 mg/dL; Total Protein Urine Random 12 mg/dL (<12)
[2020-04-22] MEDS: Omeprazole 20 MG CAPSULE.DR PO (05:59)
[2020-04-22] MEDS: Morphine Sulfate ER 30 MG TABLET.ER PO (06:00)
[2020-04-22 06:50] LABS: Hematocrit 27.2 % (42-52); Hemoglobin 8.5 g/dl (14.0-18.0); Mean Corpuscular HGB Conc 31.3 g/dl (31.0-36.0); Mean Corpuscular Volume 86.3 fL (80-98); Mean Platelet Volume 11.2 fL (9.4-12.4); Platelet Count 316 X10*3/uL (160-400); Red Blood Count 3.15 X10*6/uL (4.60-5.80); Red Cell Distribution Width 16.5 % (11.0-16.0)
[2020-04-22 07:08] LABS: Magnesium 1.5 mg/dL (1.6-2.6)
[2020-04-22 07:11] LABS: Anion Gap 13 (12-20); Blood Urea Nitrogen 11 mg/dL (9-16); Calcium 6.5 mg/dL (8.4-10.2); Carbon Dioxide 22 mmol/L (22-29); Chloride 115 mmol/L (96-108); Creatinine Clr Calc Pharmacy 56.3; Estimated Glomerular Filt Rate 57; Glucose Random 72 mg/dL (60-115); Potassium 3.8 mmol/l (3.3-5.1); Sodium 146 mmol/L (135-145)
[2020-04-22 08:00] VITALS: BP 124/76; PULSE 121; RESP 18; TEMP 36.2; O2SAT 97
[2020-04-22] MEDS: 0.9 % Sodium Chloride Flush 3 ML SYRINGE IVFLUSH ×2 (09:30→15:01)
[2020-04-22] MEDS: Rivaroxaban 20 MG TABLET PO (09:31)
[2020-04-22] MEDS: Magnesium Oxide 400 MG TABLET 800 MG PO (09:31)
[2020-04-22] MEDS: Thiamine HCL 100 MG TABLET PO (09:31)
[2020-04-22] MEDS: Folic Acid 1 MG TABLET PO (09:31)
[2020-04-22] MEDS: mycophenolate mofetiL 250 MG CAPSULE 500 MG PO ×2 (09:31→15:00)
--- NOTE | 2020-04-22 10:54 | PM.PNNEP ---
Subjective Subjective Date of Service: 04/22/20 Interval history: seen and examined this AM Physical Exam Vital Signs: Vital Signs: Last Vital Signs Temp 97.1 F 04/22/20 08:00 Pulse 121 H 04/22/20 08:00 Resp 18 04/22/20 08:00 BP 124/76 04/22/20 08:00 Pulse Ox 97 04/22/20 08:00 Body Mass Index 20.2 Const: Other: General - chronically ill appearing Cardiovascular - regular rate and rhythm, S1-S2 Lungs - normal respiratory effort, clear to auscultation bilaterally, no wheezing Abdomen - soft, non-tender, no rebound or guarding Extremities - R Knee swelling / tenderness / erythema - remains unchanged Neuro - awake and alert, no focal deficits General: cooperative, comfortable and no acute distress Orientation/consciousness: patient oriented x3 Limitations: no limitations HENMT: Other: Tacky mucous membranes Head: Yes normal to inspection Ears: hearing grossly normal bilaterally General nose exam: Normal external nose present Face and sinus: Yes normal facial exam Throat: Yes posterior oropharynx normal Eyes: General: appearance normal, both eyes and all related structures Pupils: Equal, round and reactive pupils present Neck: Neck: Yes normal visual inspection Chest: Chest palpation & inspection: normal inspection of the chest Resp: Effort & Inspection: normal respiratory effort and able to speak in complete sentences Auscultation: clear to auscultation bilaterally Cardio: Other: General - chronically ill appearing Cardiovascular - regular rate and rhythm, S1-S2 Lungs - normal respiratory effort, clear to auscultation bilaterally, no wheezing Abdomen - soft, non-tender, no rebound or guarding Extremities - R Knee swelling / tenderness / erythema - remains unchanged Neuro - awake and alert, no focal deficits Rate: regular rate Rhythm: regular rhythm Peripheral pulses: Peripheral pulses 2+ throughout GI: Inspection: Yes normal to inspection Palpation (GI): Soft to palpation and nontender Auscultation: normal bowel sounds Back/Spine/Pelvis: Thoracic/Lumbar Spine: thoracic and lumbar spine normal to inspection Skin: General skin exam: no rashes or lesions noted Neuro: Other: [id number] normal. Unable to perform heel to brooke to the right knee pain. Unable to assess gait this time. General: patient oriented x3, no focal motor deficits, normal sensation to monofilament and Unable to assess gait Cranial nerves: Yes Equal, round and reactive pupils present Cognition (Neuro): normal cognition Speech: No Abnormal speech present Gait exam (Neuro): Unable to assess gait Motor exam (neuro): 5/5 motor strength present throughout Extrem: Other: Knee skin intact. There is a minor amount erythema over the bursa of the patella with tenderness to palpation. PROM and AROM intact. No significant joint effusion present. General: Yes normal to inspection Assessment & Plan Assessment and plan (1) Bursitis of right knee: Status: Acute Assessment and Plan: CKD 3: Scr stable HypoCa: better this am; even with corection for low alb CA reamins low; suspect d/t combiantion of factors including hypoMg and malnutrtion and ques vit D def state; I do not see him having gotten denusamab or bisphoshonates which can lower Ca; hypopara is very unlikely ( very rare disorder) Hypoalb h/o [place] based chemo which can cause urine Mg wasting REC: cont PO Ca and Mg replacement; start vit D (I ordered) urine Mg testing to see if he has urine Mg wasting; check Up/Cr ratio as well if Ca remains low will give calcitriol as well Will follow clsoley with team Time Spent With Patient Time: Total time spent is greater than 50% in coordination of care (as documented) at patient's floor/unit and/or counseling patient:
--- NOTE | 2020-04-22 11:32 | MHC.CLN ---
PO INTAKES 75-100% DIET RX: REGULAR-APPROPRIATE PT RECEIVING ENSURE TID PROVIDES 1050KCALS, 60G PROTEIN FOLLOWING
[2020-04-22 12:00] VITALS: BP 147/79; PULSE 89; RESP 18; TEMP 36.8; O2SAT 94
--- NOTE | 2020-04-22 13:04 | MHC.CM.PN ---
Patient's discharge plan continues to be home with resumption of [facility] and [facility] services. [facility] will provide transport. CM will continue to follow for discharge needs.
[2020-04-22] MEDS: Dextrose 5 % 1,000 ML 80 ML IVCONT (13:13)
[2020-04-22 14:26] LABS: Anion Gap 12 (12-20); Blood Urea Nitrogen 11 mg/dL (9-16); Calcium 6.8 mg/dL (8.4-10.2); Carbon Dioxide 23 mmol/L (22-29); Chloride 115 mmol/L (96-108); Creatinine Clr Calc Pharmacy 57.2; Estimated Glomerular Filt Rate 58; Glucose Random 88 mg/dL (60-115); Potassium 3.9 mmol/l (3.3-5.1); Sodium 146 mmol/L (135-145)
[2020-04-22 15:03] VITALS: BP 146/81; PULSE 100; RESP 19; TEMP 36.5; O2SAT 97
--- NOTE | 2020-04-22 15:16 | MHC.CM.PN ---
Patient will be discharged home no services. Dtanuj Ambrosio [phone] will provide transport.
--- NOTE | 2020-04-22 15:20 | P.DS_ITS ---
DS: Providers Provider Date of admission: 04/18/20 13:15 Primary care physician: Yuni Angeles Consults: 04/18/20 16:40 Consult to Orthopedics Routine Consulting Provider: Herman Miranda Reason for consultation: ? right knee effusion, redness, swelling, pain Has provider been notified: No 04/20/20 12:48 Consult to Infectious Diseases Routine Consulting Provider: Nelda Rausch Reason for consultation: fever, ? right knee source vs other 04/21/20 07:54 Consult to Nephrology Routine Consulting Provider: Elpidio Jaime Reason for consultation: hypocalcemia DS: Diagnosis Discharge Diagnosis (1) Bursitis of right knee: Status: Acute (2) Orthostatic hypotension: Status: Acute (3) Hypomagnesemia: Status: Acute (4) Non-small cell carcinoma of lung: Status: Acute (5) Hypercalcemia: Status: Acute DS: Medications Discharge Medications Home Medications: Home Medications Medication Instructions Recorded Confirmed Creon 1 cap PO TID 03/28/20 04/18/20 atorvastatin 20 mg PO BEDTIME 03/28/20 04/18/20 docusate sodium [Colace] 100 mg PO BID 03/28/20 04/18/20 folic acid 1 mg PO DAILY 03/28/20 04/18/20 mycophenolate mofetil [CellCept] 500 mg PO TID 03/28/20 04/18/20 tamsulosin 0.4 mg PO DAILY 03/28/20 04/18/20 omeprazole 20 mg PO DAILY 04/18/20 04/18/20 thiamine HCl (vitamin B1) [Vitamin 100 mg PO DAILY 04/18/20 04/18/20 B-1] Previous Rx's Medication Instructions Recorded rivaroxaban 20 mg tablet 20 mg PO DAILY 90 Days #90 tab 02/28/20 hydromorphone [Dilaudid] 2 mg PO Q6H 30 Days #60 tab 03/08/20 ondansetron HCl [Zofran] 8 mg PO NEEDED #60 tab 03/24/20 morphine [MS Contin] 30 mg PO Q12H 30 Days #30 tab 04/11/20 calcium carbonate [Oyster Shell 500 mg PO TID #60 tab 04/22/20 Calcium 500] cholecalciferol (vitamin D3) 25 mcg PO DAILY #30 cap 04/22/20 doxycycline hyclate 100 mg PO BID #14 cap 04/22/20 magnesium oxide 800 mg PO DAILY #30 tab 04/22/20 DS: Summary Hospital Course Hospital Course: From the admission H&P: 59 year old man presenting with dizziness that started today, He has a history of Non-small cell lung carcinoma with metastasis to the liver and Myelofibrosis. He is currently under treatment at [facility]. He was getting ready today to leave his house for treatment and he started to feel dizzy. He also stated that he has had some nausea and diarrhea since last week and has not been eating well. He has a history of hypotension and was told to follow up if he felt dizzy. He was discharged from [facility] in December of 2019. At that time he was treated for acute on chronic pancreatitis, he was transferred to [facility] for evacuation of pancreatic pseudocysts. In the ED, he was noted to have an elevated WBC, magnesium of 0.7 that was repleted in the ED. He was given pain medication and zofran. He will be admitted for further management of orthostasis and hypomagnesemia. Hospital Course Patient presented with dizziness secondary to orthostatic hypotension. He was treated with intravenous saline with resolution of his symptoms. His hospital course was further complicated by right knee pain and fevers. X-ray of the right knee did not show any effusion and orthopedic evaluation felt that the patient had bursitis. In regards to the patient's fever, he had mild cellulitis surrounding his right knee which was initially broadly treated given his history of cancer and being immunocompromised. His antibiotics were deescalated and he will be discharged home on oral doxycycline for 7 more days. Lastly, his hospitalization was further complicated by hypomagnesemia and hypocalcemia. It was noted that the patient had denosumab as an out patient and this was deemed and the likely cause of his hypocalcemia. Nephrology was consulted and recommended treating with oral calcium and vitamin-D 3. the patient will be discharged home with these 2 and will have repeat lab work done early next week which will be followed by the Nephrology team. Time Spent with Patient Time attestation: Total time spent providing and/or coordinating discharge services: Physical Exam Vital Signs: Vital Signs: Last Vital Signs Temp 97.7 F 04/22/20 15:03 Pulse 100 04/22/20 15:03 Resp 19 04/22/20 15:03 BP 146/81 H 04/22/20 15:03 Pulse Ox 97 04/22/20 15:03 Body Mass Index 20.2 Const: Other: General - no acute distress, appears comfortable Cardiovascular - regular rate and rhythm, S1-S2 Lungs - normal respiratory effort, clear to auscultation bilaterally, no wheezing Abdomen - soft, nontender, no rebound or guarding Extremities - no edema bilaterally, R Knee -- resolution of erythema/warmth Neuro - awake and alert, no focal deficits DS: Data Data Completed and Pending Labs on day of discharge: Laboratory Last Values WBC 17.0 X10*3/uL (4.8-10.8) H 04/22/20 05:50 RBC 3.15 X10*6/uL (4.60-5.80) L 04/22/20 05:50 Hgb 8.5 g/dl (14.0-18.0) L 04/22/20 05:50 Hct 27.2 % (42-52) L 04/22/20 05:50 MCV 86.3 fL (80-98) 04/22/20 05:50 MCH 27.0 pg (27.0-33.0) 04/22/20 05:50 MCHC 31.3 g/dl (31.0-36.0) 04/22/20 05:50 RDW 16.5 % (11.0-16.0) H 04/22/20 05:50 Plt Count 316 X10*3/uL (160-400) 04/22/20 05:50 MPV 11.2 fL (9.4-12.4) 04/22/20 05:50 Immature Gran % (Auto) 0.5 % (0.0-0.4) H 04/19/20 06:18 Neut % (Auto) 53.7 % (45-73) 04/19/20 06:18 Lymph % (Auto) 20.8 % (20-40) 04/19/20 06:18 Shannon % (Auto) 12.4 % (2-11) H 04/19/20 06:18 Eos % (Auto) 11.6 % (0-4) H 04/19/20 06:18 Baso % (Auto) 1.0 % (0-2) 04/19/20 06:18 Lymph # (Auto) 3.2 X10*3/uL (1.2-4.9) 04/19/20 06:18 Shannon # (Auto) 1.9 X10*3/uL (0.1-1.2) H 04/19/20 06:18 Eos # (Auto) 1.8 X10*3/uL (0.0-0.4) H 04/19/20 06:18 Baso # (Auto) 0.2 X10*3/uL (0.0-0.2) 04/19/20 06:18 Abs Immat Gran (auto) 0.08 X10*3/uL (0.00-0.03) H 04/19/20 06:18 Absolute Neuts (auto) 8.4 X10*3/uL (2.0-8.3) H 04/19/20 06:18 Absolute Nucleated RBC 0.000 X10*3/uL (0.0-0.012) 04/22/20 05:50 Nucleated RBC % (auto) 0.0 /100WBC (0.0-0.2) 04/22/20 05:50 Smear Tech's Comments VERIFIED 04/19/20 06:18 Hold Blue Top SEE NOTE 04/18/20 09:29 Sodium 146 mmol/L (135-145) H 04/22/20 13:27 Potassium 3.9 mmol/l (3.3-5.1) 04/22/20 13:27 Chloride 115 mmol/L (96-108) H 04/22/20 13:27 Carbon Dioxide 23 mmol/L (22-29) 04/22/20 13:27 Anion Gap 12 (-20) 04/22/20 13:27 BUN 11 mg/dL (9-16) 04/22/20 13:27 Creatinine 1.26 mg/dL (0.5-1.4) 04/22/20 13:27 Estim Creat Clear Calc 57.2 04/22/20 13:27 Estimated GFR 58 04/22/20 13:27 Random Glucose 88 mg/dL (60-115) 04/22/20 13:27 Lactic Acid 1.9 mmol/L (0.5-2.0) 04/19/20 20:13 Calcium 6.8 mg/dL (8.4-10.2) L 04/22/20 13:27 Magnesium 1.5 mg/dL (1.6-2.6) L 04/22/20 05:50 Total Bilirubin 0.8 mg/dL (0.0-1.0) 04/18/20 09:29 Direct Bilirubin 0.4 mg/dL (0.0-0.5) 04/18/20 09:29 AST 16 U/L (5-37) 04/18/20 09:29 ALT 7 U/L (0-40) 04/18/20 09:29 Alkaline Phosphatase 145 U/L (39-117) H 04/18/20 09:29 Troponin I High Sens 10.9 ng/L (<3.5-35.0) 04/18/20 13:53 Total Protein 5.2 g/dL (6.5-8.0) L 04/18/20 09:29 Albumin 2.1 g/dL (3.5-5.0) L D 04/21/20 05:54 Lipase 46 U/L (8-78) 04/18/20 09:29 25-OH Vitamin D Total 24.8 ng/mL (>30) 04/21/20 11:58 Urine Color YELLOW 04/20/20 09:36 Urine Appearance CLEAR 04/20/20 09:36 Urine pH 6.0 (5.0-8.0) 04/20/20 09:36 Ur Specific Bridgman 1.020 (1.005-1.025) 04/20/20 09:36 Urine Protein TRACE MG/DL (NEG-TRACE) 04/20/20 09:36 Urine Glucose (UA) NEG MG/DL (NEG) 04/20/20 09:36 Urine Ketones NEG MG/DL (NEG) 04/20/20 09:36 Urine Blood TRACE (NEG) 04/20/20 09:36 Urine Nitrite NEG (NEG) 04/20/20 09:36 Ur Leukocyte Esterase NEG (NEG) 04/20/20 09:36 Urine RBC 0-2 /HPF (0) 04/20/20 09:36 Urine WBC 0-2 /HPF (0-4) 04/20/20 09:36 Ur Squamous Epith Cells TRACE /LPF 04/20/20 09:36 Ur Renal Epithelial Cell TRACE /LPF 04/20/20 09:36 Urine Bacteria NONE /LPF 04/20/20 09:36 Urine Mucus TRACE /LPF 04/20/20 09:36 U Random Total Protein 12 mg/dL (<12) 04/22/20 05:05 Urine Creatinine 21.03 mg/dL 04/22/20 05:05 Vancomycin Trough 18.0 mcg/mL (10.0-20.0) 04/21/20 22:16 Respiratory Panel Mo See Note 04/18/20 09:31 Adenovirus (Rapid PCR) Not Detected (Not Detect.) 04/18/20 09:31 B.pert (TEM-PCR) Not Detected (Not Detect.) 04/18/20 09:31 B.parapertussis DNA PCR Not Detected (Not Detect.) 04/18/20 09:31 C. pneumoniae DNA (PCR) Not Detected (Not Detect.) 04/18/20 09:31 Coronavirus OC43 (PCR) Not Detected (Not Detect.) 04/18/20 09:31 Coronavirus HKU1 (PCR) Not Detected (Not Detect.) 04/18/20 09:31 Coronavirus 229E (PCR) Not Detected (Not Detect.) 04/18/20 09:31 Coronavirus NL63 (PCR) Not Detected (Not Detect.) 04/18/20 09:31 Human Metapneumovir PCR Not Detected (Not Detect.) 04/18/20 09:31 Influenza A (RT-PCR) Not Detected (Not Detect.) 04/18/20 09:31 Influenza B (RT-PCR) Not Detected (Not Detect.) 04/18/20 09:31 M. pneumoniae (PCR) Not Detected (Not Detect.) 04/18/20 09:31 Parainfluenza 1 (PCR) Not Detected (Not Detect.) 04/18/20 09:31 Parainfluenza 2 (PCR) Not Detected (Not Detect.) 04/18/20 09:31 Parainfluenza 3 (PCR) Not Detected (Not Detect.) 04/18/20 09:31 Parainfluenza 4 (PCR) Not Detected (Not Detect.) 04/18/20 09:31 RSV (PCR) Not Detected (Not Detect.) 04/18/20 09:31 Entero/Rhino (PCR) Not Detected (Not Detect.) 04/18/20 09:31 SARS-CoV-2 RNA (RT-PCR) Not Detected (Not Detect.) 04/18/20 09:31 Preliminary micro results at discharge 04/19/20 20:13 Blood Culture - Preliminary Blood - Venous No growth after 48 hours. 04/19/20 20:13 Blood Culture - Preliminary Blood - Venous No growth after 48 hours. 04/18/20 09:30 Blood Culture - Preliminary Blood - Venous No growth after 48 hours. 04/18/20 09:30 Blood Culture - Preliminary Blood - Venous No growth after 48 hours. Discharge Plan Discharge Patient Disposition: Home Health Service Referrals: [facility] [Outside] Yuni Angeles MD [Primary Care Provider] - Elpidio Jaime MD [Physician] - Discharge Medications: New magnesium oxide 400 mg (241.3 mg magnesium) Tablet 800 mg PO DAILY Qty: 30 RF: 0 calcium carbonate [Oyster Shell Calcium 500] 500 mg calcium (1,250 mg) Tablet 500 mg PO TID Qty: 60 RF: 0 cholecalciferol (vitamin D3) 25 mcg (1,000 unit) capsule 25 mcg PO DAILY Qty: 30 RF: 0 Continued Xarelto 20 mg tablet 20 mg PO DAILY 90 Days Qty: 90 RF: 0 hydromorphone [Dilaudid] 2 mg Tablet 2 mg PO Q6H 30 Days Qty: 60 RF: 0 ondansetron HCl [Zofran] 4 mg Tablet 8 mg PO NEEDED Qty: 60 RF: 6 mycophenolate mofetil [CellCept] 500 mg Tablet 500 mg PO TID RF: 0 tamsulosin 0.4 mg capsule 0.4 mg PO DAILY RF: 0 folic acid 1 mg tablet 1 mg PO DAILY RF: 0 atorvastatin 20 mg tablet 20 mg PO BEDTIME RF: 0 docusate sodium [Colace] 100 mg Capsule 100 mg PO BID RF: 0 Creon 36,000-114,000- 180,000 unit capsule,delayed release(DR/EC) 1 cap PO TID RF: 0 morphine [MS Contin] 30 mg Tablet Extended Release 30 mg PO Q12H 30 Days Qty: 30 RF: 0 thiamine HCl (vitamin B1) [Vitamin B-1] 100 mg tablet 100 mg PO DAILY RF: 0 omeprazole 20 mg Capsule,Delayed Release(Dr/Ec) 20 mg PO DAILY RF: 0 doxycycline hyclate 100 mg capsule 100 mg PO BID Qty: 14 RF: 0 Discharge Orders: Discharge Order (Routine); Ordered 04/22/20 Ordered By: Kenny Casiano Diet: advance to usual diet Activity on Discharge: As tolerated Other Ambulatory Orders: Basic Metabolic Panel (Routine) Timeframe: 20200425 Facility: [facility] - Location: Laboratory Ordered By: Kenny Casaino Magnesium (Routine) Timeframe: 20200425 Facility: [facility] - Location: Laboratory Ordered By: Kenny Casiano Visit Report Forms: Patient Portal Discharge page Care Plan Goals: To stay healthy and out of the hospital. Health Concerns: Dizziness-- due to dehydration. Drink Plenty of fluids Knee pain - due to bursitis, maybe skin infection, take doxycycline for 7 days and your chronic pain meds Low calcium / low magnesium -- take Calcium and Magnesium Pills. Have your blood work checked on Saturday. Plan of Treatment: Dizziness -- due to dehydration. Drink Plenty of fluids Knee pain - due to bursitis, maybe skin infection, take doxycycline for 7 days and your chronic pain meds Low calcium / low magnesium -- take Calcium and Magnesium Pills. Have your blood work checked on Saturday.
[2020-04-22 20:37] LABS: Calcium (PTHI) 6.4 mg/dL (8.6-10.3); PTHI 437 pg/mL (14-64)
--- NOTE | 2020-04-25 17:24 | MHC.HEMONC ---
APPTS s/p discharge - T/C to Leonard re: follow up appointment recommendations s/p discharge from [facility]. He did receive his dilaudid from Dr. Angeles today and this has taking the edge off of his significant R knee pain. *Appt was scheduled w Dr. Rausch, Inf. Dz for this Saturday, 04/29 at 1:30pm. Dx: Fever w R knee pain and swelling - on Doxy now. *Left message w office - Told pt. to expect a call from Dr. Smith's office, Nephrology (hypocalcemia) for hospital d/c follow-up. He was seen in-house by partner Dr. Jaime. *Also, I left message w Ashley Williamson, RN, Ortho Navigator at Dr. Miranda's office for hospital d/c follow-up. He was seen in-house by RADHA Whitehead. *Pt. agrees to this plan of care.
[2020-04-27 01:02] LABS: VITAMIN D (1,25 OH) D3 56 pg/mL; Vit D (1,25-Dihydroxy) Total 56 pg/mL (18-72); Vitamin D (1,25 OH) D2 <8 pg/mL
[2020-04-29 16:57] LABS: Creatinine, Random Urine 23 mg/dL (20-320); Magnesium, Random Urine 187 mg/g creat (22-130)
== END 2020-04-22 17:56 | disposition home health service (06) | DRG 312 ==
LOC: HO.ED 11:34 → HO.IMC 15:39
PROVIDERS: Internal Medicine; Internal Medicine Nephrology; Nurse Practitioner Acute Care; Nurse Practitioner Family; Admitting Provider Family Medicine; Emergency Provider Internal Medicine; PCP Internal Medicine Medical Oncology; Visit Provider Family Medicine
DX: I95.1 Orthostatic hypotension (principal); E43 Unspecified severe protein-calorie malnutrition; D75.81 Myelofibrosis; C34.90 Malignant neoplasm of unspecified part of unspecified bronchus or lung; C78.7 Secondary malignant neoplasm of liver and intrahepatic bile duct; D68.62 Lupus anticoagulant syndrome; M71.9 Bursopathy, unspecified; N18.30 Chronic kidney disease, stage 3 unspecified; Z68.20 Body mass index [BMI] 20.0-20.9, adult; E83.51 Hypocalcemia; D45 Polycythemia vera; E83.42 Hypomagnesemia; Z20.828 Contact with and (suspected) exposure to other viral communicable diseases; Z88.5 Allergy status to narcotic agent; Z79.01 Long term (current) use of anticoagulants; Z79.52 Long term (current) use of systemic steroids; Z79.899 Other long term (current) drug therapy
CPT/HCPCS: 36415; 70450; 71046; 73562; 80048; 80076; 80202; 81001; 81003; 82040; 82306; 82652; 83605; 83690; 83735; 83970; 84156; 84484; 85014; 85018; 85025; 85027; 87040; 87633; 93005; 96361; 96365; 96366; 96375; 96376; 99285; J0610; J0690; J1170; J1642; J2405; J2543; J3370; J3475

== ENCOUNTER → 2020-04-29 15:25 | Outpatient (BNVA) | payer OTHER, SELFPAY | PROVIDERS: Visit Provider Internal Medicine | DX: M70.51 Other bursitis of knee, right knee (principal); C34.90 Malignant neoplasm of unspecified part of unspecified bronchus or lung | CPT/HCPCS: 99202 ==

== ENCOUNTER → 2020-05-17 09:52 | Outpatient (BNVA) | payer OTHER, SELFPAY | PROVIDERS: Visit Provider Orthopaedic Surgery | DX: M25.561 Pain in right knee (principal); M25.461 Effusion, right knee | CPT/HCPCS: Q3014 ==

== ENCOUNTER 2020-07-18 11:25 | Inpatient (IN) | payer OTHER, SELFPAY ==
[2020-07-18] VITALS (8 sets, daily range): BP systolic 81–104; BP diastolic 51–63; PULSE 70–93; RESP 16–18; TEMP 36.6–37.1; O2SAT 95–99; BMI 16.9
--- NOTE | ~2020-07-18 | XR_ITS ---
EXAMINATION: XR CHEST CLINICAL INFORMATION: Hypertension. COMPARISON: Chest x-ray 04/18/2020 TECHNIQUE: 2 views of the chest were obtained. FINDINGS: The lungs are hyperinflated with minimal scarring in the left upper lobe. No pneumonic consolidation or pulmonary nodule seen. The heart size and pulmonary vascularity is normal. There is a right Port-A-Cath with its tip projecting over the mid SVC. [id number] degenerative changes of dorsal spine are noted. XR/XR chest 2V IMPRESSION: Emphysematous lungs without any acute pneumonic process. Likely chronic scarring left upper lobe.
--- NOTE | 2020-07-18 12:06 | ECG_ITS ---
Test Reason : WEAKNESS Blood Pressure : / mmHG Vent. Rate : 077 BPM Atrial Rate : 077 BPM P-R Int : 130 ms QRS Dur : 128 ms QT Int : 448 ms P-R-T Axes : -12 -29 049 degrees QTc Int : 506 ms Normal sinus rhythm Right bundle branch block Abnormal ECG When compared with ECG of 18-APR-2020 09:36, Right bundle branch block is now Present Referred By: Dinorah Del Real Electronically Signed By:NAVYA KELLY
--- NOTE | 2020-07-18 12:18 | ED.GENADULT ---
HPI - General Adult General Chief complaint: General Medical Stated complaint: hypotensive Time Seen by Provider: 07/18/20 11:49 Source: patient Mode of arrival: wheelchair Limitations: no limitations History of Present Illness HPI narrative: 59-year-old male past medical history of chronic kidney disease, anemia, BPH, chronic pancreatitis, COPD, CVA, gout, high cholesterol, hypertension, lupus, myelofibrosis, polycythemia vera, diabetes, history of non-small cell lung carcinoma with Mets to the liver followed by Dr. Angeles currently on one monthly pembrolizumab (last dose 07/11). Patient sent here from the oncology office for low blood pressure. He tells me that he was seen there today for his routine labs and was noted to have a blood pressure of 67/45 and he received 1 L of normal saline and was then referred to the emergency department. The patient tells me that he has a history of low blood pressure and is currently on midodrine 2.5 mg twice daily. He tells me that his dose was increased 1 week ago as he was continuing to have hypotension. Denies any dizziness, lightheadedness, chest pain, shortness of breath, nausea, vomiting, diarrhea or headache. He is complaining of feeling generally weak with a decreased appetite and poor sleeping. Does have nausea which is chronic from his medications per patient. Has been on prednisone in the past but is not currently on prednisone. Of note had admit 04/18-04/22 for orthostatic hypotension, hypomagnesmia and right knee bursitis which was treated with doxycyline. Related Data Home Medications Medication Instructions Recorded Confirmed Creon 1 cap PO TID 03/28/20 07/18/20 mycophenolate mofetil [CellCept] 500 mg PO DAILY 03/28/20 07/18/20 fluticasone propion-salmeterol 1 puff INHALATION BID 05/09/20 07/18/20 doxycycline hyclate 100 mg PO DAILY 07/11/20 07/18/20 amlodipine 10 mg PO DAILY 07/18/20 07/18/20 diphenhydramine-acetaminophen 1 tab PO BEDTIME PRN 07/18/20 07/18/20 [Mapap PM] fluocinonide 1 appl TOPICAL BID 07/18/20 07/18/20 omeprazole 20 mg PO DAILY@0630 07/18/20 07/18/20 ondansetron HCl [Zofran] 8 mg PO Q8H PRN 07/18/20 07/18/20 tamsulosin 0.4 mg PO DAILY@1700 07/18/20 07/18/20 Previous Rx's Medication Instructions Recorded calcium carbonate 500 mg calcium 500 mg PO TID #90 tab 05/04/20 (1,250 mg) tablet cholecalciferol (vitamin D3) 25 25 mcg PO DAILY #30 cap 05/04/20 mcg (1,000 unit) capsule rivaroxaban 20 mg tablet 20 mg PO DAILY #28 tab 05/19/20 morphine 15 mg tablet,extended 15 mg PO Q12H #60 tab 06/27/20 release hydromorphone [Dilaudid] 2 mg PO Q6H PRN #60 tab 07/05/20 atorvastatin 20 mg tablet 20 mg PO BEDTIME #28 tab 07/15/20 magnesium oxide 400 mg (241.3 mg 800 mg PO DAILY #30 tab 07/15/20 magnesium) tablet midodrine 2.5 mg tablet 2.5 mg PO BID #60 tab 07/15/20 thiamine HCl (vitamin B1) 100 mg 100 mg PO DAILY #28 tab 07/15/20 tablet Allergies Allergy/AdvReac Type Severity Reaction Status Date / Time oxycodone [OXYCODONE] Allergy Unknown VOMITING, Verified 04/29/20 13:54 nausea and vomiting Review of Systems Review of Systems: Yes all other systems are reviewed and are negative Constitutional: Constitutional: Reports no additional constitutional complaints, Denies body ache(s), Denies chills, Denies fever(s), Denies headache(s) and Denies weakness Eyes: Eyes: Reports no additional eye complaints and Denies change in vision ENT: Reports system reviewed and no additional complaints, except as documented, Reports dizziness, Denies headache(s), Denies nasal congestion, Denies nasal discharge and Denies neck pain Cardiovascular: Cardiovascular: Reports no additional cardiovascular complaints, Denies chest pain, Denies leg edema and Denies dyspnea Respiratory: Respiratory: Reports no additional respiratory complaints, Denies cough and Denies dyspnea Gastrointestinal: Gastrointestinal: Reports no additional gastrointestinal complaints, Denies abdominal pain, Denies diarrhea, Denies nausea and Denies vomiting Genitourinary: Genitourinary: Denies urinary incontinence Musculoskeletal: Musculoskeletal: Reports no additional musculoskeletal complaints, Denies back pain, Denies arthralgias, Denies joint swelling, Denies neck pain, Denies numbness and Denies tingling Integumentary/Breasts: Skin/Breast: Reports system reviewed and no additional complaints, except as docu and Denies rash Neurologic: Reports system reviewed and no additional complaints, except as documented, Denies Abnormal speech present, Reports dizziness, Denies headache(s), Denies numbness, Denies tingling and Denies weakness PMFSH Past Medical History Medical History BPH (benign prostatic hyperplasia) Chronic pancreatitis Compression fracture of L1 lumbar vertebra COPD (chronic obstructive pulmonary disease) CVA (cerebral vascular accident) Gout Hypercholesterolemia Hypertension Lumbar degenerative disc disease Lupus anticoagulant disorder Myelofibrosis Pancreatic pseudocyst Paraneoplastic pemphigus Peripheral vascular disease Polycythemia vera TIA (transient ischemic attack) Tobacco abuse Type 2 diabetes mellitus with hyperglycemia Ventral hernia Surgical History Elbow fracture, right H/O hernia repair H/O splenectomy H/O stem cell transplant History of kyphoplasty S/P herniorrhaphy Social History Social History Household Members: None Housing: Unknown / Unable to assess Alcohol intake: never Smoking Status: Never smoker Use of substances other than those prescribed or required for medical reasons: No Advance Directives: No Advance Directives Information Provided: Yes service: Yes Current occupational status: disabled Physical Exam Vital Signs: Vital Signs: Last Vital Signs Temp 97.8 F 07/18/20 15:25 Pulse 73 07/18/20 15:25 Resp 17 07/18/20 15:25 BP 94/61 07/18/20 15:25 Pulse Ox 97 07/18/20 15:25 Body Mass Index 16.9 Const: Other: thin appearing General: cooperative Orientation/consciousness: patient oriented x3 Limitations: no limitations HENMT: Head: Yes normal to inspection Ears: hearing grossly normal bilaterally General nose exam: Normal external nose present Face and sinus: Yes normal facial exam Mouth: Normal oral and palatal mucosa present Throat: Yes posterior oropharynx normal Eyes: General: appearance normal, both eyes and all related structures Pupils: Equal, round and reactive pupils present Neck: Neck: Yes normal visual inspection Chest: Chest palpation & inspection: normal inspection of the chest Resp: Effort & Inspection: normal respiratory effort Auscultation: clear to auscultation bilaterally Cardio: Rate: regular rate Rhythm: regular rhythm Peripheral pulses: Peripheral pulses 2+ throughout GI: Inspection: Yes normal to inspection Palpation (GI): Soft to palpation and nontender Auscultation: normal bowel sounds Back/Spine/Pelvis: Thoracic/Lumbar Spine: thoracic and lumbar spine normal to inspection Skin: General skin exam: no rashes or lesions noted Neuro: General: patient oriented x3, no focal motor deficits and normal sensation to monofilament Cranial nerves: Yes Equal, round and reactive pupils present Cognition (Neuro): normal cognition Speech: No Abnormal speech present Gait exam (Neuro): Normal gait present Motor exam (neuro): 5/5 motor strength present throughout Extrem: Other: R knee normal in appearance, no pain and FROM General: Yes normal to inspection Course Course Course Narrative: 59 year old male coming from Oncology with hypotension despite receiving 1 L of fluid there. He is complaining feeling generally weak. He has a history of hypotension is currently on 2.5 mg of midodrine b.i.d.. This was increased 1 week ago from daily. Denies any other symptoms. On arrival patient's blood pressure is 84/50. He had labs this morning oncology which showed a leukocytosis which is chronic and unchanged, acute on chronic renal disease. Will check orthostatics, EKG, CXR. 1430-continued hypotension with a blood pressure of 81/51 despite 1 L normal saline bolus. Will plan on repeating bolus. Chest x-ray unremarkable. Patient unable to participate and orthostatic vital signs. He is complaining of feeling generally weak but no other symptoms. EKG shows a new right bundle branch block. The patient tells me that he is taking Xarelto for previous strokes and has been compliant with this taking it every day. He denies any shortness of breath or chest pain. Less likely PE with no hypoxia or tachycardia and being compliant with his anticoagulation. Patient will need admission. I added on blood cultures, lactic acid, troponin. Added on dose of midodrine. 1530-troponin is 10. Plan for repeat 3 hour troponin. Less likely ACS with no ischemic changes on EKG and no reports of chest pain. UA negative. COVID screen negative. Blood pressure is now 94/61. Discussed with Rachel DUFFY who accepted admission of patient. Hypotension from dehydration. Dr Angeles updated that patient was admitted. Medical Decision Making Medical Records Medical records reviewed: Yes I reviewed the patient's medical records. Lab Data Lab results reviewed: Yes I reviewed the patient's lab results. Labs: Lab Results 07/18/20 07/18/20 07/18/20 Range/Units 12:17 14:43 14:43 Lactic Acid 1.3 (0.5-2.0) mmol/L Magnesium 1.8 (1.6-2.6) mg/dL Troponin I High Sens (<3.5-35.0) ng/L Procalcitonin ng/mL Urine Color Urine Appearance Urine pH (5.0-8.0) Ur Specific [place] (1.005-1.025) Urine Protein (NEG-TRACE) MG/DL Urine Glucose (UA) (NEG) MG/DL Urine Ketones (NEG) MG/DL Urine Blood (NEG) Urine Nitrite (NEG) Ur Leukocyte Esterase (NEG) COVID-19 (SENG) Negative (Negative) COVID-19 Clin Com See Note 07/18/20 07/18/20 07/18/20 Range/Units 14:43 14:43 15:04 Lactic Acid (0.5-2.0) mmol/L Magnesium (1.6-2.6) mg/dL Troponin I High Sens 10.9 (<3.5-35.0) ng/L Procalcitonin 0.94 ng/mL Urine Color YELLOW Urine Appearance CLEAR Urine pH 5.5 (5.0-8.0) Ur Specific [place] 1.020 (1.005-1.025) Urine Protein TRACE (NEG-TRACE) MG/DL Urine Glucose (UA) NEG (NEG) MG/DL Urine Ketones NEG (NEG) MG/DL Urine Blood TRACE (NEG) Urine Nitrite NEG (NEG) Ur Leukocyte Esterase 1+ H (NEG) COVID-19 (SENG) (Negative) COVID-19 Clin Com Imaging Data Chest x-ray: Attestation: I personally reviewed and interpreted this imaging study as follows: Radiologist's impression: EXAMINATION: XR CHEST CLINICAL INFORMATION: Hypertension. COMPARISON: Chest x-ray 04/18/2020 TECHNIQUE: 2 views of the chest were obtained. FINDINGS: The lungs are hyperinflated with minimal scarring in the left upper lobe. No pneumonic consolidation or pulmonary nodule seen. The heart size and pulmonary vascularity is normal. There is a right Port-A-Cath with its tip projecting over the mid SVC. [id number] degenerative changes of dorsal spine are noted. XR/XR chest 2V IMPRESSION: Emphysematous lungs without any acute pneumonic process. Likely chronic scarring left upper lobe. ECG Data Attestation: I personally reviewed and interpreted this ECG as follows: Interpretation: NSR with rate 77, normal pr, normal qrs, normal qtc, RBBB Discharge Plan Discharge Prescriptions: No Action cholecalciferol (vitamin D3) 25 mcg (1,000 unit) capsule 25 mcg PO DAILY Qty: 30 RF: 5 calcium carbonate [Oyster Shell Calcium 500] 500 mg calcium (1,250 mg) tablet 500 mg PO TID Qty: 90 RF: 5 rivaroxaban [Xarelto] 20 mg tablet 20 mg PO DAILY Qty: 28 RF: 3 thiamine HCl (vitamin B1) [Vitamin B-1] 100 mg tablet 100 mg PO DAILY Qty: 28 RF: 5 atorvastatin 20 mg tablet 20 mg PO BEDTIME Qty: 28 RF: 11 magnesium oxide 400 mg (241.3 mg magnesium) tablet 800 mg PO DAILY Qty: 30 RF: 5 midodrine 2.5 mg tablet 2.5 mg PO BID Qty: 60 RF: 1 mycophenolate mofetil [CellCept] 500 mg Tablet 500 mg PO DAILY RF: 0 Creon 36,000-114,000- 180,000 unit capsule,delayed release(DR/EC) 1 cap PO TID RF: 0 fluticasone propion-salmeterol 232-14 mcg/actuation aerosol powdr breath activated 1 puff inhalation BID RF: 0 hydromorphone [Dilaudid] 2 mg Tablet 2 mg PO Q6H PRN (Reason: Breakthrough Pain, Moderate) Qty: 60 RF: 0 doxycycline hyclate 100 mg capsule 100 mg PO DAILY RF: 0 fluocinonide 0.05 % Cream 1 appl TOPICAL BID RF: 0 ondansetron HCl [Zofran] 4 mg tablet 8 mg PO Q8H PRN (Reason: Nausea And Vomiting) RF: 0 tamsulosin 0.4 mg capsule 0.4 mg PO DAILY@1700 RF: 0 omeprazole 20 mg capsule,delayed release(DR/EC) 20 mg PO DAILY@0630 RF: 0 diphenhydramine-acetaminophen [Mapap PM] 25-500 mg Tablet 1 tab PO BEDTIME PRN (Reason: Sleep) RF: 0 amlodipine 10 mg Tablet 10 mg PO DAILY RF: 0 morphine [MS Contin] 15 mg tablet extended release 15 mg PO Q12H Qty: 60 RF: 0
[2020-07-18 12:39] LABS: Magnesium 1.8 mg/dL (1.6-2.6)
[2020-07-18] MEDS: 0.9 % Sodium Chloride 1,000 ML 999 ML IV ×2 (13:07→14:23)
[2020-07-18] MEDS: Midodrine HCl 2.5 MG TABLET PO (14:00)
[2020-07-18] MEDS: Hydrocortisone 1 % Cream 28.35 GM TUBE 1 APPL TOPICAL (15:03)
[2020-07-18 15:17] LABS: Lactic Acid 1.3 mmol/L (0.5-2.0)
[2020-07-18 15:24] LABS: COVID-19 Test Negative (Negative); IDNOW Serial# 9DD0AD1C
[2020-07-18 15:25] LABS: Troponin-I High Sensitivity 10.9 ng/L (<3.5-35.0)
[2020-07-18 15:25] LABS: Glucose Urine UA NEG (NEG); Leukocyte Esterase Urine 1+ (NEG); Nitrite Urine NEG (NEG); PH 5.5 (5.0-8.0); UACC Culture Trigger YES; Urine Blood TRACE (NEG); Urine Ketones NEG (NEG); Urine Protein TRACE MG/DL (NEG-TRACE)
[2020-07-18 15:26] LABS: Appearance Urine CLEAR; Color Urine YELLOW
[2020-07-18 15:38] LABS: Procalcitonin 0.94 ng/mL
[2020-07-18 15:56] LABS: Amorphous Sediment Urine 1+ /LPF; Bacteria Urine 1+ /LPF; Squamous Epithelial Cell Urine 1+ /LPF; WBC Urine 30-49 /HPF (0-4)
--- NOTE | 2020-07-18 16:28 | PM.IMHP ---
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 Angeles currently on one monthly pembrolizumab (last dose 07/11). He was seen in follow at the oncology clinic and noted to be hypotensive and therefore sent to the ED. Blood pressure was 67/45 and did not improve after 1 Liter of Normal Saline. Of note he has chronic hypotension and is on midodrine 2.5 twice daily at home and that was recently increased. He demonstrated no signs or symptoms of sepsis. Furthermore, he denies any dizziness, lightheadedness, chest pain, shortness of breath, nausea, vomiting, diarrhea or headache. He feels generally weak and fatigued and his apetite has decreased and is hardly sleeping. He has history of orthostatic hypotension and required related admission on 04/18-04/22. In ED he has received 2 liters of normal saline, 2.5 mg of midodrine and currently BP is 94/61 Review of Systems Review of Systems: Gen: no fever Resp: no sob, no cough CV: no chest, no FINCH, no leg edema GI: No n/v, no abd pain Neuro: No confusion Yes all other systems are reviewed and are negative [facility] Medical History BPH (benign prostatic hyperplasia) Chronic pancreatitis Compression fracture of L1 lumbar vertebra COPD (chronic obstructive pulmonary disease) CVA (cerebral vascular accident) Gout Hypercholesterolemia Hypertension Lumbar degenerative disc disease Lupus anticoagulant disorder Myelofibrosis Pancreatic pseudocyst Paraneoplastic pemphigus Peripheral vascular disease Polycythemia vera TIA (transient ischemic attack) Tobacco abuse Type 2 diabetes mellitus with hyperglycemia Ventral hernia Surgical History Elbow fracture, right H/O hernia repair H/O splenectomy H/O stem cell transplant History of kyphoplasty S/P herniorrhaphy Social History Household Members: None Housing: Unknown / Unable to assess Alcohol intake: never Smoking Status: Never smoker Use of substances other than those prescribed or required for medical reasons: No Advance Directives: No Advance Directives Information Provided: Yes service: Yes Current occupational status: disabled Meds Allergies Allergy/AdvReac Type Severity Reaction Status Date / Time oxycodone [OXYCODONE] Allergy Unknown VOMITING, Verified 04/29/20 13:54 nausea and vomiting Active Medications: Current Medications Generic Name Dose Route Start Last Admin Trade Name Freq PRN Reason Stop Dose Admin Pharmacy Consult 1 each 07/18/20 14:06 Consult Rx Perform Med Rec MISCELLANE ONCE PRN Consult order Home Medications Medication Instructions Recorded Confirmed Last Taken Type Creon 1 cap PO TID 03/28/20 07/18/20 Unknown History mycophenolate mofetil [CellCept] 500 mg PO DAILY 03/28/20 07/18/20 Unknown History fluticasone propion-salmeterol 1 puff INHALATION BID 05/09/20 07/18/20 Unknown History doxycycline hyclate 100 mg PO DAILY 07/11/20 07/18/20 Unknown History amlodipine 10 mg PO DAILY 07/18/20 07/18/20 Unknown History diphenhydramine-acetaminophen 1 tab PO BEDTIME PRN 07/18/20 07/18/20 Unknown History [Mapap PM] fluocinonide 1 appl TOPICAL BID 07/18/20 07/18/20 Unknown History omeprazole 20 mg PO DAILY@0630 07/18/20 07/18/20 Unknown History ondansetron HCl [Zofran] 8 mg PO Q8H PRN 07/18/20 07/18/20 Unknown History tamsulosin 0.4 mg PO DAILY@1700 07/18/20 07/18/20 Unknown History Physical Exam Vital Signs and Narrative: Vital Signs: Last Vital Signs Temp 97.8 F 07/18/20 15:25 Pulse 73 07/18/20 15:25 Resp 17 07/18/20 15:25 BP 94/61 07/18/20 15:25 Pulse Ox 97 07/18/20 15:25 Body Mass Index 16.9 Const: General: cooperative Orientation/consciousness: patient oriented x3 HENMT: Head: Yes normal to inspection Eyes: Pupils: Equal, round and reactive pupils present Neck: Yes normal visual inspection Resp: Effort & Inspection: normal respiratory effort Auscultation: clear to auscultation bilaterally Cardio: Rate: regular rate Rhythm: regular rhythm Peripheral pulses: Peripheral pulses 2+ throughout GI: Inspection: Yes normal to inspection Palpation (GI): Soft to palpation and nontender Auscultation: normal bowel sounds Skin: General skin exam: no rashes or lesions noted Neuro: General: patient oriented x3, no focal motor deficits and normal sensation to monofilament Cranial nerves: Yes Equal, round and reactive pupils present Cognition (Neuro): normal cognition Gait exam (Neuro): Normal gait present Motor exam (neuro): 5/5 motor strength present throughout Extrem: General: Yes normal to inspection Psych: Appearance: grossly normal Results Labs Labs: Laboratory Results - last 24 hr 07/18/20 07/18/20 07/18/20 12:17 14:43 14:43 Lactic Acid 1.3 Magnesium 1.8 Troponin I High Sens Procalcitonin Urine Color Urine Appearance Urine pH Ur Specific [place] Urine Protein Urine Glucose (UA) Urine Ketones Urine Blood Urine Nitrite Ur Leukocyte Esterase Urine RBC Urine WBC Ur Squamous Epith Cells Amorphous Sediment Urine Bacteria COVID-19 (SENG) Negative COVID-19 Clin Com See Note 07/18/20 07/18/20 07/18/20 14:43 14:43 15:04 Lactic Acid Magnesium Troponin I High Sens 10.9 Procalcitonin 0.94 Urine Color YELLOW Urine Appearance CLEAR Urine pH 5.5 Ur Specific [place] 1.020 Urine Protein TRACE Urine Glucose (UA) NEG Urine Ketones NEG Urine Blood TRACE Urine Nitrite NEG Ur Leukocyte Esterase 1+ H Urine RBC 1-4 Urine WBC 30-49 H Ur Squamous Epith Cells 1+ Amorphous Sediment 1+ Urine Bacteria 1+ COVID-19 (SENG) COVID-19 Clin Com Imaging Radiologist's Impressions: Impressions Chest X-Ray 07/18/20 12:07 IMPRESSION: Emphysematous lungs without any acute pneumonic process. Likely chronic scarring left upper lobe. Assessment and Plan (1) Hypotension: Qualifiers: Hypotension type: unspecified hypotension type Qualified Code(s): I95.9 - Hypotension, unspecified Status: Acute (2) COPD (chronic obstructive pulmonary disease): Status: Acute (3) Chronic kidney disease: Status: Acute (4) Non-small cell carcinoma of lung metastatic to abdomen: Qualifiers: Laterality: unspecified laterality Qualified Code(s): C34.90 - Malignant neoplasm of unspecified part of unspecified bronchus or lung; C79.89 - Secondary malignant neoplasm of other specified sites Problem details: Liver biopsy December 2017 Status: Acute (5) Orthostatic hypotension: Status: Acute 59 male with stage 4 metastatic lung cancer to liver, CKD, COPD, chronic anemia, chronic orthostatic hypotension seen in oncology for follow and noted to by hypotensive with no improvement following fluid bolus, no overt sepsis signs of symptoms, yet this patient who is immunocompromised is at significant risk of detelioration and mortality and will thus be admitted for further work up and management. 1. Hypotension likely from dehydration volume depletion. Rule out sepsis with cultures. Normal saline. continue Midodrine 2. COPD is stable, no exacerbation. Inhalers PRN 3. Anemia-stable. 4. SADE on CKD--Hydrate and repeat labs tomorrow 5. Marked Leukocytosis--ralated to cancer--monitor, oncology consult Lovenox for DVT prophylaxis.
[2020-07-18] MEDS: Sodium Chloride 0.45 % 1,000 ML 100 ML IVCONT (17:13)
[2020-07-18] MEDS: 0.9 % Sodium Chloride 1,000 ML 100 ML IVCONT (18:19)
[2020-07-18] MEDS: Enoxaparin Sodium 40 MG/0.4 ML SYRINGE SUBCUT (19:00)
[2020-07-18 19:01] LABS: Troponin-I High Sensitivity 10.8 ng/L (<3.5-35.0)
[2020-07-19] VITALS (11 sets, daily range): BP systolic 92–128; BP diastolic 56–74; PULSE 68–109; RESP 18–22; TEMP 31–37.3; O2SAT 94–99
[2020-07-19] MEDS: HYDROmorphone HCl 2 MG TABLET 1 MG PO (05:12)
[2020-07-19] MEDS: Enoxaparin Sodium 40 MG/0.4 ML SYRINGE SUBCUT (05:12)
[2020-07-19] MEDS: 0.9 % Sodium Chloride 1,000 ML 100 ML IVCONT (05:14)
--- NOTE | 2020-07-19 08:20 | P.CDIC_ITS ---
CDI Concurrent Query Service Date: 07/20/20 Documentation Clarification: Please clarify if you are treating a proba ble/suspected/likely or confirmed: Body mass index: Malnutrition, mild, moderate or severe Anorexia Cachexia Please specify if known Provider Response: Moderate Protein-Calorie Malnutrition PLEASE DO NOT DELETE/MODIFY EXISTING CONTENT Additional information is needed in order to code to the highest accuracy and appropriate Severity of Illness (SOI). Please clarify the information noted below in your progress notes and discharge summary. Risk Factors/Clinical Indicators/Treatments BMI 16.9 dehydration, poor appetite, weak, fatigue. Albumin 3.1 BP 81/51 Stage 4 non-small cell carcinoma mets to liver. CDS: Natalie Quiles CCS, CDIS Contact Number: [phone] Please Review the information above and exercise your independent professional judgment in responding to the query. If you concur, pleas document in the PROGRESS NOTES and DISCHARGE SUMMARY. If you do not agree with the query, please document in the query above. THIS QUERY IS PART OF THE PERMANENT MEDICAL RECORD
--- NOTE | 2020-07-19 08:27 | MHC.CM.PN ---
IMM 07/19/20 Male 59 DX Hypotension hx CA. Pt ststes that he went to oncology for CA treatment. He was sent from there to er by his Oncologist. The pt reports that he has been running a low BP for months. He states that he is always asymptomatic. HCP on file. He lives alone with assist fromPCA/HCP. He requires assist functional mobility. DP return home with resumption of [employer] services. Pt states that he will need assist with transport if his [employer] is not available. CM will follow for change to DC needs.
[2020-07-19] MEDS: mycophenolate mofetiL 250 MG CAPSULE 500 MG PO (09:34)
[2020-07-19] MEDS: Midodrine HCl 2.5 MG TABLET PO ×2 (09:34→20:21)
[2020-07-19] MEDS: Omeprazole 20 MG CAPSULE.DR PO (09:34)
[2020-07-19] MEDS: Rivaroxaban 20 MG TABLET PO (09:34)
[2020-07-19] MEDS: Cholecalciferol (Vitamin D3) 25 MCG TABLET PO (09:35)
[2020-07-19] MEDS: Magnesium Oxide 400 MG TABLET 800 MG PO (09:35)
[2020-07-19] MEDS: Morphine Sulfate ER 15 MG TABLET.ER PO ×2 (09:35→20:20)
[2020-07-19] MEDS: Thiamine HCL 100 MG TABLET PO (09:35)
[2020-07-19] MEDS: 0.9 % Sodium Chloride Flush 3 ML SYRINGE IVFLUSH ×2 (09:44→16:24)
--- NOTE | 2020-07-19 13:15 | P.PNIM_ITS ---
Subjective Subjective Date of Service: 07/19/20 Interval History: Seen in f/u for hypotension. BP is now better on IV and BP meds on hold Review of Systems Gen: no fever Resp: no sob, no cough CV: no chest, no FINCH, no leg edema GI: No n/v, no abd pain Neuro: No confusion Physical Exam Vital Signs: Vital Signs: Last Vital Signs Temp 98.3 F 07/19/20 12:00 Pulse 88 07/19/20 12:00 Resp 20 07/19/20 12:00 BP 95/60 07/19/20 12:00 Pulse Ox 98 07/19/20 12:00 Body Mass Index 16.9 Const: General: cooperative Orientation/consciousness: patient oriented x3 HENMT: Head: Yes normal to inspection Eyes: Pupils: Equal, round and reactive pupils present Neck: Neck: Yes normal visual inspection Resp: Effort & Inspection: normal respiratory effort Auscultation: clear to auscultation bilaterally Cardio: Rate: regular rate Rhythm: regular rhythm Peripheral pulses: Peripheral pulses 2+ throughout GI: Inspection: Yes normal to inspection Palpation (GI): Soft to palpation and nontender Auscultation: normal bowel sounds Skin: General skin exam: no rashes or lesions noted Neuro: General: patient oriented x3, no focal motor deficits and normal sen sation to monofilament Cranial nerves: Yes Equal, round and reactive pupils present Cognition (Neuro): normal cognition Gait exam (Neuro): Normal gait present Motor exam (neuro): 5/5 motor strength present throughout Extrem: General: Yes normal to inspection Psych: Appearance: grossly normal Objective Data Current Medications Generic Name Dose Route Start Last Admin Trade Name Brunoq PRN Reason Stop Dose Admin Atorvastatin Calcium 20 mg 07/19/20 21:00 Atorvastatin Calcium 20 Mg Tablet PO BEDTIME QUINTON Calcium Carbonate 500 mg 07/19/20 09:00 07/19/20 09:37 Calcium Carbonate 500 Mg Tablet PO 500 mg TID QUINTON Administration Doxycycline Hyclate 100 mg 07/19/20 09:00 07/19/20 09:35 Doxycycline Hyclate 100 Mg Tablet PO 100 mg Q12H QU[facility]ON Administration Fluticasone/Vilanterol 1 puff 07/19/20 09:00 07/19/20 08:28 Fluticasone/Vilanterol 200/25 Blst.W.Dev INHALE Not Given RDAILY QU[facility]ON Hydromorphone HCl 2 mg 07/19/20 07:32 Hydromorphone Hcl 2 Mg Tablet PO Q6H PRN Breakthrough Pain, Moderate Magnesium Hydroxide 30 ml 07/19/20 13:05 Milk Of Magnesia 30 Ml Oral.Susp PO DAILY PRN Constipation Magnesium Oxide 800 mg 07/19/20 09:00 07/19/20 09:35 Magnesium Oxide 400 Mg Tablet PO 800 mg DAILY QUINTON Administration Midodrine 2.5 mg 07/19/20 09:00 07/19/20 09:34 Midodrine Hcl 2.5 Mg Tablet PO 2.5 mg BID QUINTON Administration Morphine Sulfate 15 mg 07/19/20 07:45 07/19/20 09:35 Morphine Sulfate Er 15 Mg Tablet.Er PO 15 mg Q12H [facility] Administration Mycophenolate Mofetil 500 mg 07/19/20 09:00 07/19/20 09:34 Mycophenolate Mofetil 250 Mg Capsule PO 500 mg DAILY QUINTON Administration Non-Formulary Medication 1 cap 07/19/20 09:00 Scjthu-Schmdoqj-Fawmdau [Creon] PO TID [facility] Omeprazole 20 mg 07/19/20 07:45 07/19/20 09:34 Omeprazole 20 Mg Capsule.Dr PO 20 mg DAILY@0630 [facility] Administration Ondansetron HCl 8 mg 07/19/20 07:32 Ondansetron Odt 8 Mg Tab.Rapdis TRANSLINGU Q8H PRN Nausea And Vomiting Pharmacy Consult 1 each 07/18/20 14:06 Consult Rx Perform Med Rec MISCELLANE ONCE PRN Consult order Polyethylene Glycol 17 gm 07/19/20 13:08 Polyethylene Glycol 3350 17 Gm Powd.Pack PO DAILY PRN Constipation Rivaroxaban 20 mg 07/19/20 09:00 07/19/20 09:34 Rivaroxaban 20 Mg Tablet PO 20 mg DAILY [facility] Administration Sodium Chloride 3 ml 07/19/20 00:00 07/19/20 09:44 0.9 % Sodium Chloride Flush 3 Ml Syringe IVFLUSH 3 ml QSHIFT [facility] Administration Tamsulosin HCl 0.4 mg 07/19/20 17:00 Tamsulosin Hcl 0.4 Mg Capsule PO DAILY@1700 [facility] Temazepam 15 mg 07/18/20 16:55 Temazepam 15 Mg Capsule PO BEDTIME PRN Insomnia Thiamine HCl 100 mg 07/19/20 09:00 07/19/20 09:35 Thiamine Hcl 100 Mg Tablet PO 100 mg DAILY [facility] Administration Triamcinolone Acetonide 1 appl 07/19/20 09:00 07/19/20 10:34 Triamcinolone Acet 0.5 % Cream 15 Gm Tube TOPICAL Not Given BID [facility] Vitamin D 25 mcg 07/19/20 09:00 07/19/20 09:35 Cholecalciferol (Vitamin D3) 25 Mcg Tablet PO 25 mcg DAILY [facility] Administration Microbiology Microbiology Results: Microbiology 07/18/20 15:27 Urine clean catch - Clean Catch Midstream Urine Culture - Final No growth. Assessment and Plan (1) Hypotension: Status: Acute (2) COPD (chronic obstructive pulmonary disease): Status: Acute (3) Chronic kidney disease: Status: Acute (4) Non-small cell carcinoma of lung metastatic to abdomen: Problem details: Liver biopsy December 2017 Status: Acute (5) Orthostatic hypotension: Status: Acute Assessment and Plan: 59 male with stage 4 metastatic lung cancer to liver, CKD, COPD, chronic anemia, chronic orthostatic hypotension seen in oncology for follow and noted to by hypotensive with no improvement following fluid bolus, no overt sepsis signs of symptoms, yet this patient who is immunocompromised is at significant risk of detelioration and mortality and will thus be admitted for further work up and management. 1. Hypotension likely from dehydration volume depletion and BP meds. There is no evidence of sepsis -D/C Norvasc, Increase Midodrine to 5 bid 2. COPD is stable, no exacerbation. Inhalers PRN 3. Anemia-stable. 4. SADE on CKD--Hydrate and repeat labs tomorrow 5. Marked Leukocytosis--ralated to cancer--monitor, oncology consult 6. On xarelto daily, he says it is given to prevent stroke and previously was on coumadin. There is no documentation of AFIB, will continue for now. 7. on Mycophenylate prescribed by dermatoligst for skin condition. 7. Chronic pancreatitis--continue pancreatic replacment. 8. Constipation likely from chronic opioid (on morphine and dilaudid at home). Mom, Miralax. home tomorrow. Lovenox for DVT prophylaxis.
[2020-07-19] MEDS: Milk of Magnesia 30 ML ORAL.SUSP PO (16:23)
[2020-07-19] MEDS: Tamsulosin HCL 0.4 MG CAPSULE PO (16:23)
[2020-07-19] MEDS: HYDROmorphone HCl 2 MG TABLET PO (16:23)
[2020-07-19] MEDS: Atorvastatin Calcium 20 MG TABLET PO (20:20)
[2020-07-20] VITALS (8 sets, daily range): BP systolic 90–110; BP diastolic 57–67; PULSE 72–96; RESP 18–19; TEMP 36.5–37.1; O2SAT 98–100
[2020-07-20] MEDS: 0.9 % Sodium Chloride Flush 3 ML SYRINGE IVFLUSH ×3 (00:11→16:06)
[2020-07-20] MEDS: Omeprazole 20 MG CAPSULE.DR PO (06:04)
[2020-07-20] MEDS: Magnesium Oxide 400 MG TABLET 800 MG PO (08:13)
[2020-07-20] MEDS: Midodrine HCl 2.5 MG TABLET PO ×3 (08:13→20:14)
[2020-07-20] MEDS: Rivaroxaban 20 MG TABLET PO (08:13)
[2020-07-20] MEDS: Thiamine HCL 100 MG TABLET PO (08:14)
[2020-07-20] MEDS: Morphine Sulfate ER 15 MG TABLET.ER PO ×2 (08:14→20:02)
[2020-07-20] MEDS: Cholecalciferol (Vitamin D3) 25 MCG TABLET PO (08:14)
[2020-07-20] MEDS: mycophenolate mofetiL 250 MG CAPSULE 500 MG PO (08:14)
[2020-07-20] MEDS: polyethylene glycoL 3350 17 GM POWD.PACK PO (08:25)
[2020-07-20] MEDS: Milk of Magnesia 30 ML ORAL.SUSP PO (08:25)
--- NOTE | 2020-07-20 10:22 | P.DS_ITS ---
DS: Providers Provider Date of Service: 07/21/20 Date of admission: 07/18/20 16:27 Primary care physician: Linda Lawson MD DS: Diagnosis Discharge Diagnosis (1) Hypotension: Status: Acute (2) COPD (chronic obstructive pulmonary disease): Status: Acute (3) Chronic kidney disease: Status: Acute (4) Non-small cell carcinoma of lung metastatic to abdomen: Status: Acute Problem details: Liver biopsy December 2017 (5) Orthostatic hypotension: Status: Acute DS: Medications Discharge Medications Home Medications: Home Medications Medication Instructions Recorded Confirmed Creon 1 cap PO TID 03/28/20 07/18/20 mycophenolate mofetil [CellCept] 500 mg PO DAILY 03/28/20 07/18/20 fluticasone propion-salmeterol 1 puff INHALATION BID 05/09/20 07/18/20 doxycycline hyclate 100 mg PO DAILY 07/11/20 07/18/20 amlodipine 10 mg PO DAILY 07/18/20 07/18/20 diphenhydramine-acetaminophen 1 tab PO BEDTIME PRN 07/18/20 07/18/20 [Mapap PM] fluocinonide 1 appl TOPICAL BID 07/18/20 07/18/20 omeprazole 20 mg PO DAILY@0630 07/18/20 07/18/20 ondansetron HCl [Zofran] 8 mg PO Q8H PRN 07/18/20 07/18/20 tamsulosin 0.4 mg PO DAILY@1700 07/18/20 07/18/20 Previous Rx's Medication Instructions Recorded calcium carbonate 500 mg calcium 500 mg PO TID #90 tab 05/04/20 (1,250 mg) tablet cholecalciferol (vitamin D3) 25 25 mcg PO DAILY #30 cap 05/04/20 mcg (1,000 unit) capsule rivaroxaban 20 mg tablet 20 mg PO DAILY #28 tab 05/19/20 morphine 15 mg tablet,extended 15 mg PO Q12H #60 tab 06/27/20 release hydromorphone [Dilaudid] 2 mg PO Q6H PRN #60 tab 07/05/20 atorvastatin 20 mg tablet 20 mg PO BEDTIME #28 tab 07/15/20 magnesium oxide 400 mg (241.3 mg 800 mg PO DAILY #30 tab 07/15/20 magnesium) tablet midodrine 2.5 mg tablet 2.5 mg PO BID #60 tab 07/15/20 thiamine HCl (vitamin B1) 100 mg 100 mg PO DAILY #28 tab 07/15/20 tablet DS: Summary Hospital Course Hospital Course: 59-year-old male past medical history of chronic kidney disease, anemia of chronic disease, BPH, chronic pancreatitis, COPD, CVA, gout, high cholesterol, hypertension, lupus, myelofibrosis, polycythemia vera, diabetes, history of 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 Angeles currently on one monthly pembrolizumab (last dose 07/11). He was seen in follow at the oncology clinic and noted to be hypotensive and therefore sent to the ED. Blood pressure was 67/45 and did not improve after 1 Liter of Normal Saline. Of note he has chronic hypotension and is on midodrine 2.5 twice daily at home and that was recently increased. He demonstrated no signs or symptoms of sepsis. Furthermore, he denies any dizziness, lightheadedness, chest pain, shortness of breath, nausea, vomiting, diarrhea or headache. He feels generally weak and fatigued and his apetite has decreased and is hardly sleeping. He has history of orthostatic hypotension and required related admission on 04/18- 04/22. In ED he has received 2 liters of normal saline, 2.5 mg of midodrine and currently BP is 94/61 Hospital course: 1. Hypotension likely from dehydration volume depletion and BP med (Norvasc). Negative sepsis work up. Patient was admitted and given IVF with normal saline. Norvasc 10 mg daily has been discontinine and increasing Midodrine to 5 mg twice from 2.5. He should follow up with PCP unpon discharge. -D/C Norvasc, Increase Midodrine to 5 bid 2. COPD is stable, no exacerbation. Inhalers PRN 3. Anemia-chronic and stable, no indication for transfusion at this time. 4. SADE on CKD--Hydrate and repeat labs tomorrow 5. Marked Leukocytosis--ralated to cancer this has been chronic and oncology aware of this 6. On xarelto daily, he says it is given to prevent stroke and previously was on coumadin before that. There is no documentation of AFIB, will continue for now. 7. on Mycophenylate prescribed by dermatoligst for skin condition along with doxycyline 7. Chronic pancreatitis--continue pancreatic replacment. 8. Constipation likely from chronic opioid (on morphine and dilaudid at home). Mom, Miralax, colace daily 9. chronic moderate protein calory malnutritiion--should be on supplement at home Time Spent with Patient Time attestation: Total time spent providing and/or coordinating discharge services: Discharge coordination time: Greater than 30 minutes Physical Exam Vital Signs: Vital Signs: Last Vital Signs Body Mass Index 16.9 Selected Entries 07/21/20 08:12 Pulse Rate 102 H Blood Pressure 98/64 General: AO X 3, no acute distress Resp: CTA bilateral CVS: S1,S2,RRR GI: +BS, NT, no distention Skin: No rash Neuro: motor grossly intact Psych: appropriate affect DS: Data Data Completed and Pending Labs on day of discharge: Preliminary micro results at discharge 07/18/20 14:43 Blood Culture - Preliminary Blood - Venous No growth after 24 hours. Discharge Plan Discharge Anticipated Discharge Date/Time: 07/21/20 09:50 Patient Disposition: Home, Self-Care Referrals: Po,Linda Ng MD [Primary Care Provider] - Discharge Medications: New midodrine 5 mg tablet 5 mg PO BID Qty: 60 RF: 0 docusate sodium [DOK] 100 mg capsule 100 mg PO BID Qty: 360 RF: 0 polyethylene glycol 3350 [Miralax] 17 gram/dose powder 17 g PO DAILY PRN (Reason: constipation) Qty: 238 RF: 0 Continued cholecalciferol (vitamin D3) 25 mcg (1,000 unit) capsule 25 mcg PO DAILY Qty: 30 RF: 5 calcium carbonate [Oyster Shell Calcium 500] 500 mg calcium (1,250 mg) tablet 500 mg PO TID Qty: 90 RF: 5 rivaroxaban [Xarelto] 20 mg tablet 20 mg PO DAILY Qty: 28 RF: 3 thiamine HCl (vitamin B1) [Vitamin B-1] 100 mg tablet 100 mg PO DAILY Qty: 28 RF: 5 atorvastatin 20 mg tablet 20 mg PO BEDTIME Qty: 28 RF: 11 magnesium oxide 400 mg (241.3 mg magnesium) tablet 800 mg PO DAILY Qty: 30 RF: 5 mycophenolate mofetil [CellCept] 500 mg Tablet 500 mg PO DAILY RF: 0 Creon 36,000-114,000- 180,000 unit capsule,delayed release(DR/EC) 1 cap PO TID RF: 0 fluticasone propion-salmeterol 232-14 mcg/actuation aerosol powdr breath activated 1 puff inhalation BID RF: 0 hydromorphone [Dilaudid] 2 mg Tablet 2 mg PO Q6H PRN (Reason: Breakthrough Pain, Moderate) Qty: 60 RF: 0 doxycycline hyclate 100 mg capsule 100 mg PO DAILY RF: 0 fluocinonide 0.05 % Cream 1 appl TOPICAL BID RF: 0 ondansetron HCl [Zofran] 4 mg tablet 8 mg PO Q8H PRN (Reason: Nausea And Vomiting) RF: 0 tamsulosin 0.4 mg capsule 0.4 mg PO DAILY@1700 RF: 0 omeprazole 20 mg capsule,delayed release(DR/EC) 20 mg PO DAILY@0630 RF: 0 diphenhydramine-acetaminophen 25-500 mg Tablet 1 tab PO BEDTIME PRN (Reason: Sleep) RF: 0 morphine [MS Contin] 15 mg tablet extended release 15 mg PO Q12H Qty: 60 RF: 0 Discontinued midodrine 2.5 mg tablet 2.5 mg PO BID Qty: 60 RF: 1 amlodipine 10 mg Tablet 10 mg PO DAILY RF: 0 Discharge Orders: Discharge Order (Routine); Ordered 07/21/20 Ordered By: Boris Appiah Diet: advance to usual diet Activity on Discharge: As tolerated Stand Alone Forms: Patient Portal Discharge page Care Plan Goals: Blood pressure control and prevent rehospitalization Health Concerns: chronic hypotension Plan of Treatment: Take Midodrine as directed, stop taken Norvasc, and take Colace, Miralax as directed for constipation. Call Oncology for follow up appointment
--- NOTE | 2020-07-20 10:51 | MHC.CM.PN ---
Patient appears o be medically cleared for dc to home today, no services. Last IMM addressed yesterday.
[2020-07-20 11:05] LABS: Hematocrit 26.8 % (42-52); Hemoglobin 8.3 g/dl (14.0-18.0); Mean Corpuscular Hemoglobin 26.2 pg (27.0-33.0); Mean Corpuscular Volume 84.5 fL (80-98); Mean Platelet Volume 10.8 fL (9.4-12.4); Platelet Count 503 X10*3/uL (160-400); Red Blood Count 3.17 X10*6/uL (4.60-5.80); Red Cell Distribution Width 16.3 % (11.0-16.0)
[2020-07-20 11:20] LABS: White Blood Count 48.1 X10*3/uL (4.8-10.8)
[2020-07-20 11:32] LABS: Anion Gap 13 (12-20); Blood Urea Nitrogen 21 mg/dL (9-16); Calcium 7.8 mg/dL (8.4-10.2); Carbon Dioxide 20 mmol/L (22-29); Chloride 112 mmol/L (96-108); Creatinine Clr Calc Pharmacy 39.9; Estimated Glomerular Filt Rate 47; Glucose Random 77 mg/dL (60-115); Potassium 5.4 mmol/L (3.3-5.1); Sodium 140 mmol/L (135-145)
[2020-07-20] MEDS: Tamsulosin HCL 0.4 MG CAPSULE PO (16:15)
[2020-07-20] MEDS: Atorvastatin Calcium 20 MG TABLET PO (20:15)
[2020-07-20] MEDS: HYDROmorphone HCl 2 MG TABLET PO (23:42)
[2020-07-20] MEDS: Temazepam 15 MG CAPSULE PO (23:43)
[2020-07-21] MEDS: 0.9 % Sodium Chloride Flush 3 ML SYRINGE IVFLUSH ×2 (01:29→08:16)
[2020-07-21 03:54] VITALS: BP 90/55; PULSE 72; RESP 18; TEMP 36.7; O2SAT 97
[2020-07-21] MEDS: Omeprazole 20 MG CAPSULE.DR PO (06:20)
[2020-07-21 07:42] VITALS: BP 98/64; PULSE 102; RESP 18; TEMP 37; O2SAT 97
[2020-07-21] MEDS: Morphine Sulfate ER 15 MG TABLET.ER PO (08:11)
[2020-07-21] MEDS: Cholecalciferol (Vitamin D3) 25 MCG TABLET PO (08:11)
[2020-07-21] MEDS: Magnesium Oxide 400 MG TABLET 800 MG PO (08:11)
[2020-07-21 08:12] VITALS: BP 98/64; PULSE 102
[2020-07-21] MEDS: Midodrine HCl 2.5 MG TABLET PO (08:12)
[2020-07-21] MEDS: Rivaroxaban 20 MG TABLET PO (08:12)
[2020-07-21] MEDS: mycophenolate mofetiL 250 MG CAPSULE 500 MG PO (08:12)
[2020-07-21] MEDS: Thiamine HCL 100 MG TABLET PO (08:12)
--- NOTE | 2020-07-21 08:14 | MHC.CM.PN ---
Patient has been medically cleared for dc to home today, no services. Last IMM addressed on 07/19/20.
[2020-07-21] MEDS: Heparin Sodium,Porcine Flush 50 UNITS, 0.9 % Sodium Chloride Flush 5 ML IVFLUSH (09:45)
== END 2020-07-21 10:01 | disposition home or self-care (01) | DRG 315 ==
LOC: HO.ED 12:10 → HO.EDOVER 16:34 → HO.IMC 19:54
PROVIDERS: Family Medicine; Nurse Practitioner Family; Admitting Provider Internal Medicine; Emergency Provider Emergency Medicine; PCP Internal Medicine; Visit Provider Internal Medicine
DX: I95.9 Hypotension, unspecified (principal); N17.9 Acute kidney failure, unspecified; E44.0 Moderate protein-calorie malnutrition; Z68.1 Body mass index [BMI] 19.9 or less, adult; C34.90 Malignant neoplasm of unspecified part of unspecified bronchus or lung; C78.7 Secondary malignant neoplasm of liver and intrahepatic bile duct; K86.1 Other chronic pancreatitis; E83.42 Hypomagnesemia; E86.0 Dehydration; I12.9 Hypertensive chronic kidney disease with stage 1 through stage 4 chronic kidney disease, or unspecified chronic kidney disease; D63.1 Anemia in chronic kidney disease; E11.22 Type 2 diabetes mellitus with diabetic chronic kidney disease; D72.829 Elevated white blood cell count, unspecified; K59.03 Drug induced constipation; T40.2X5A Adverse effect of other opioids, initial encounter; Y92.9 Unspecified place or not applicable; N18.9 Chronic kidney disease, unspecified; Z20.822 Contact with and (suspected) exposure to COVID-19; Z88.5 Allergy status to narcotic agent; Z79.01 Long term (current) use of anticoagulants; Z79.52 Long term (current) use of systemic steroids; Z79.899 Other long term (current) drug therapy
CPT/HCPCS: 36415; 71046; 80048; 81001; 81003; 83605; 83735; 84145; 84484; 85027; 87040; 87086; 87205; 87635; 93005; 96360; 96361; 97162; 99285; J1642; J1650

== ENCOUNTER → 2024-01-16 12:02 | Outpatient (RCR) | payer OTHER, SELFPAY ==
[2020-03-08 08:29] VITALS: BP 84/56; PULSE 71; RESP 18; TEMP 36.5; O2SAT 97
[2020-03-08 10:08] LABS: MANUAL DIFF FLAG NO
[2020-03-08 10:40] LABS: Basophils Absolute Auto 0.1 X10*3/uL (0.0-0.2); Basophils Percent Auto 1.1 % (0-2); Eosinophils Absolute Auto 0.4 X10*3/uL (0.0-0.4); Eosinophils Percent Auto 3.7 % (0-4); Hematocrit 35.6 % (42-52); Hemoglobin 11.1 g/dl (14.0-18.0); Imm Gran Abs Auto 0.05 X10*3/uL (0.00-0.03); Imm Gran Pct Auto 0.4 % (0.0-0.4); Lymphocytes Absolute Auto 1.5 X10*3/uL (1.2-4.9); Lymphocytes Percent Auto 13.1 % (20-40); Mean Corpuscular HGB Conc 31.2 g/dl (31.0-36.0); Mean Corpuscular Hemoglobin 28.8 pg (27.0-33.0); Mean Corpuscular Volume 92.2 fL (80-98); Monocytes Absolute Auto 0.6 X10*3/uL (0.1-1.2); Monocytes Percent Auto 4.9 % (2-11); Neutrophils Absolute Auto 8.8 X10*3/uL (2.0-8.3); Neutrophils Percent Auto 76.8 % (45-73); Platelet Count 328 X10*3/uL (160-400); Red Blood Count 3.86 X10*6/uL (4.60-5.80); Red Cell Distribution Width 15.4 % (11.0-16.0); White Blood Count 11.4 X10*3/uL (4.8-10.8)
[2020-03-08 11:02] LABS: Alanine Aminotransferase 13 U/L (0-40); Albumin Level 3.2 g/dL (3.5-5.0); Alkaline Phosphatase 113 U/L (39-117); Anion Gap 14 (12-20); Aspartate Amino Transferase 22 U/L (5-37); Bilirubin Total 0.4 mg/dL (0.0-1.0); Blood Urea Nitrogen 25 mg/dL (9-16); Carbon Dioxide 26 mmol/L (22-29); Chloride 105 mmol/L (96-108); Creatinine Clr Calc Pharmacy 43.4; Estimated Glomerular Filt Rate 43; Glucose Random 111 mg/dL (60-115); Potassium 4.7 mmol/l (3.3-5.1); Sodium 140 mmol/L (135-145); Total Protein 5.5 g/dL (6.5-8.0)
--- NOTE | 2020-03-08 11:08 | P.PNHO_ITS ---
Medical Summary - Medical Summary Chief complaint: follow-up for: Non-small cell lung carcinoma.2.History of myelofibrosis Medical Summary: DIAGNOSES: 1. Myelofibrosis. 2. History of lupus anticoagulant positivity. 3. Transient ischemic attack, 2007, with left hemiparesis; now resolved. 4. Pancreatitis, he had repeated episodes; now resolved. 5. 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 CURRENT THERAPY: 1. 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 2. Coumadin 5 mg. daily. INR from February 26, 2.7. 3. Carboplatin/Alimta, started 02/10. Completed cycle 3. 4. On Nivolumab, started April. Completed 32 treatments, September 07. Treatment number 40 on December 27. Interval History Interval history: This is a pleasant 59-year-old gentleman, here for a follow-up visit. Patient was in house between December 27 and the for acute on chronic pancreatitis. On admission patient CT scan showed:Pancreatitis with peripancreatic fluid collections as described. Since 11/09/2019, there is new extension of a cyst/fluid from the lesser sac into the caudate lobe measuring 6.6 x 5.3 x 5.4 cm. Subsequently he was given IV fluid, pain management, bowel rest. He initially responded well and started eating. Subsequently he started having fever, Tmax 101*6F and become hypotensive. Patient required aggressive fluid resuscitation, initially received Levaquin and then subsequently changed to Zosyn as per ID. Patient was being followed by GI doctor wilton and ID Dr reynoso: Due to above incidence SIRS/hypotension: Thought to have question of pancreatic cyst infection or abscess. Case was discussed with the GI in [facility] as well as hospitalist service- patient. The concern was that patient would require EUS guided drainage. He was subsequently transferred to [facility]. He was initially admitted to [facility] care because of hypotension, resuscitated with IV fluids, Zosyn was started. GI and ID were consulted. MRI of the abdomen 01/02 showed multiple peripancreatic pseudocysts containing debris insinuating in to caudate lobe of the liver, along lesser curvature of stomach and left subdiaphragmatic region, mildly increased from prior study. Agnieszka hepatis/caudate collection measures up to 7.4 cm previously 7.2 cm. Super infection not excluded. 1.8 cm hyperintense nonenhancing lesion within segment 7 right hepatic lobe, mildly increased in both size and T2 hyperintensity compared to November 2019. This finding was previously described as a treated metastasis and may now be complicated by pseudocyst formation. Smaller cystic lesions scattered throughout the pancreas, similar to prior study and again likely representing additional pseudocysts, dilated side branch ducts, non neoplastic cyst or side-branch intraductal papillary mucinous neoplasm. Diffuse mesenteric edema with trace perihepatic ascites. He underwent endoscopic ultrasound 01/05 the unfortunately location of the collections prevented endoscopic drain placement. GI recommended IR guided drainage because of the proximity to esophagus. IR also recommended not amenable to IR guided drainage. GI advised against laparoscopic drainage because of guarded surgical outcome with his comorbidity and to try conservative management with IV antibiotics. Fortunately patient responded well to antibiotic therapy and completed 2 weeks course of IV Zosyn as suggested by ID. He remained afebrile. Leukocytosis trended down. Encephalopathy: Acute confusion 01/09 likely related to sepsis. STRIKER OFF imaging without new finding except many old lacunes. He is now here for a follow-up visit. He does not look too well. He has lost a lot of weight. He complains of abdominal pain in the periumbilical area. He has nausea but no vomiting. No heartburn or indigestion. His bowels are working without any gross blood in it. His appetite is not that good. He has lost weight. He is very fatigued. His spirits are down. Rest of the review of systems is unremarkable. Review of Systems - Constitutional Reports anorexia, Reports body ache(s), Reports fatigue - Eyes Reports system reviewed and no additional complaints, except as documented - ENT Reports system reviewed and no additional complaints, except as documented - Cardiovascular Reports system reviewed and no additional complaints, except as documented - Respiratory Reports no additional respiratory complaints, Denies chest congestion - Gastrointestinal Reports system reviewed and no additional complaints, except as documented, Reports heartburn, Reports nausea, Denies loose stools, Denies vomiting - Genitourinary Genitourinary: Reports no additional male genitourinary complaints - Musculoskeletal Reports body aches - Integumentary/Breasts Skin/Breast: Reports no additional skin complaints - Neurologic Reports system reviewed and no additional complaints, except as documented, Reports dizziness, Denies lack of coordination, Denies focal weakness - Psychiatric Reports system reviewed and no additional complaints, except as documented, Reports depression - Endocrine Reports no additional endocrine complaints - Hematologic/Lymphatic Reports system reviewed and no additional complaints, except as documented [facility] Medical History: Medical History (Last Updated 03/08/20 @ 11:13 by Yuni Angeles MD) Lupus anticoagulant disorder Myelofibrosis Pancreatic pseudocyst Polycythemia vera TIA (transient ischemic attack) Surgical History: Surgical History (Last Updated 03/08/20 @ 11:13 by Yuni Angeles MD) S/P herniorrhaphy Home Medications and Allergies Current Medications: Current Medications Generic Name Dose Route Start Last Admin Trade Name Freq PRN Reason Stop Dose Admin Heparin Sodium (Porcine) 500 unit 03/08/20 00:00 Heparin Sodium,Porcine Flush 500 Unit/5 Ml Syringe IVFLUSH 03/08/20 23:59 ONCE QUINTON Ondansetron HCl 16 mg in 50 mls @ 200 mls/hr 03/08/20 00:00 Zofran IV 03/08/20 23:59 ONCE QUINTON Allergies Allergy/AdvReac Type Severity Reaction Status Date / Time oxycodone [OXYCODONE] Allergy Unknown VOMITING, Unverified 02/04/20 16:52 nausea and vomiting morphine Allergy Unknown doesn't Uncoded 03/05/17 00:00 work Exam Vital signs: Vital Signs Temp 97.7 F 03/08/20 08:29 Pulse 71 03/08/20 08:29 Resp 18 03/08/20 08:29 BP 84/56 L 03/08/20 08:29 Pulse Ox 97 03/08/20 08:29 Intake & Output 03/07/20 03/08/20 03/08/20 18:59 06:59 18:59 Other: Weight 66.4 kg 65.3 kg Weight 65.3 kg Body Mass Index 20.0 - Constitutional Present: mild distress - Routine HEENT Exam Head: Present: normal inspection Eye: Present: normal appearance ENT: Present: mucous membranes moist - Routine Neck Exam Present: full ROM - Routine Respiratory Exam Present: CTAB - Routine Cardiovascular Exam Cardiovascular: Present: RRR, S1, S2 - Routine Abdominal Exam Present: hyperactive bowel sounds, soft, nontender - Routine Exam Perineum Description: Normal - Routine Extremities Exam Present: nontender - Routine Skin Exam Present: intact - Routine Neurological Exam Present: alert, oriented X3 - Routine Psychiatric Exam Present: normal affect, anxious Data - Labs CBC & Chem 7: 03/08/20 09:50 03/08/20 09:50 Labs: Laboratory Results - last 24 hr 03/08/20 03/08/20 03/08/20 09:50 09:50 09:50 WBC 11.4 H RBC 3.86 L Hgb 11.1 L Hct 35.6 L MCV 92.2 MCH 28.8 MCHC 31.2 RDW 15.4 Plt Count 328 MPV 12.0 Immature Gran % (Auto) 0.4 Neut % (Auto) 76.8 H Lymph % (Auto) 13.1 L Patrick % (Auto) 4.9 Eos % (Auto) 3.7 Baso % (Auto) 1.1 Lymph # (Auto) 1.5 Patrick # (Auto) 0.6 Eos # (Auto) 0.4 Baso # (Auto) 0.1 Abs Immat Gran (auto) 0.05 H Absolute Neuts (auto) 8.8 H Absolute Nucleated RBC 0.000 Nucleated RBC % (auto) 0.0 Sodium 140 Potassium 4.7 Chloride 105 Carbon Dioxide 26 Anion Gap 14 BUN 25 H Creatinine 1.65 H Estim Creat Clear Calc 43.4 Estimated GFR 43 Random Glucose 111 Total Bilirubin 0.4 AST 22 ALT 13 Alkaline Phosphatase 113 Total Creatine Kinase 11 L Total Protein 5.5 L Albumin 3.2 L Progress Note: A/P (1) Non-small cell carcinoma of lung 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 Polycythemia Vera. It transformed into Myelofibrosis. He was on phlebotomies for several years, initially. 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 He has done extremely well, from that perspective and remains in remission. 2. He has had a mild chronic Leukocytosis, that could partly be related to smoking. 3. Adenocarcinoma of the Lung, diagnosed with Liver Metastases, 01/04: Pathology: Poorly differentiated Adenocarcinoma of Lung Origin. The EGFR, ALK and PDL-1 mutation, negative. He received 4 cycles of chemotherapy with carboplatin, pemetrexed, 04/14/2018. He had disease progression. He has been on Nivolumab, started in April 28 2018. His TSH is low. He had a restaging PET scan on October 30 which revealed: 1.There has been complete metabolic response to therapy of FDG avid lingular and left pleural-based lesions present on the prior PET CT scan dated 01/09/2018. A residual spiculated nodule in the lingula persists, but is significantly smaller when compared to both the prior PET CT scan and the more recent diagnostic CT scan dated 04/18/2018. 2. There has been complete metabolic response to therapy of two previously present intensely FDG avid liver lesions. Some residual hypodensities are present at these sites on the CT images, but these show no abnormal FDG activity. 3. There has been complete resolution on both the FDG PET and CT images of an FDG avid lesion passing through the left 10th interspace posterolaterally. 4. No additional or new abnormalities suspicious for metastatic or other malignant lesions are noted. He did stabilize. He is on a prednisone taper. Back in October, he was in house for pancreatitis/pseudocyst and bacteremia. He still has some residual issues. At his last visit a couple of months ago he was rather hypotensive. He was admitted. He required transferred to [facility]. Both GI and IR did not feel they could attempt to drain the infected pseudocysts. He was given 2 weeks of IV Zosyn. With that he improved. He is now in the process of recuperating. His Most recent CT scan revealed: 1. Irregular opacity/mass in the inferior left upper lobe/lingula is not significantly changed since the previous PET/CT of 10/30/2018. This is the site of known malignancy. The finding has significantly decreased in size compared to previous CTs of 2018. 2. Changes of emphysema. 3. A few subcentimeter noncalcified right upper lobe subpleural lung nodules are stable since the previous chest CT of 04/18/2018. 4. Improving pancreatic and peripancreatic fluid collections. 5. Multiple new rim enhancing liver lesions; differential possibilities include metastases versus hepatic abscesses. The appearance of multiple new liver lesions seen on the current CT is similar to that the liver lesions seen on the CT scan of 12/03/2017 the left hepatic lobe lesion seen on the CT scan of 12/03/2017 is not seen on the current examination. Hepatic metastases are favored given the appearance of the lesions similar to the previous studies and interval improvement of the pancreatic/peripancreatic infectious/inflammatory process in the upper abdomen. Disease progression, with progressive liver metastases. As such I have elected to change his therapy. Will switch to pembrolizumab. His PDL1 was 30%. PLAN: He is here to get started on that. Details of the regimen including potential side effects of hypersensitivity reactions, skin rash, shortness of breath, risk of immune related reactions, pancytopenia, risk of infections, need for antibiotic blood transfusions as well as growth factors were all addressed with him. He understands and is willing to proceed. His Morphine And Dilaudid prescriptions was refilled today for a month's supply. He says he has enough help at home, between the visiting nurses, [employer]UST[employer]OR and his daughter. Thanks, CC: Dr. Lawson. Dr. Sanjuanita Khan. Dr. Pope. Dr. Hernandez. Code Status FULL CODE - Time Spent With Patient Total time spent is greater than 50% in coordination of care (as documented) at patient's floor/unit and/or counseling patient: 25 - 35 minutes
[2020-03-08 12:16] LABS: Magnesium 0.7 mg/dL (1.6-2.6)
[2020-03-08] MEDS: diphenhydrAMINE HCL 50 MG/ML VIAL 25 MG IVPUSH (12:34)
[2020-03-08] MEDS: Acetaminophen 325 MG TABLET 650 MG PO (12:35)
[2020-03-08] MEDS: Magnesium Sulfate/H2O 2 GM/50 ML PIGGYBACK IV (12:41)
[2020-03-08] MEDS: Heparin Sodium,Porcine Flush 500 UNIT/5 ML SYRINGE IVFLUSH (14:31)
--- NOTE | 2020-03-11 11:26 | MHC.HEMONC ---
PA FOR PEMBROLIZUM APPROVED. AUTH.#[id number]. [id number]/20/2020 to 03/08/2021
[2020-03-28 09:08] VITALS: BMI 19.1
[2020-03-28 09:10] VITALS: BP 80/51; PULSE 69; RESP 18; TEMP 36.4; O2SAT 99
--- NOTE | 2020-03-28 09:34 | P.PNHO_ITS ---
Medical Summary - Medical Summary Chief complaint: follow-up for lung cancer. Medical Summary: DIAGNOSES: 1. Myelofibrosis. 2. History of lupus anticoagulant positivity. 3. Transient ischemic attack, 2007, with left hemiparesis; now resolved. 4. Pancreatitis, he had repeated episodes; now resolved. 5. 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 CURRENT THERAPY: 1. 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 2. Coumadin 5 mg. daily. INR from February 26, 2.7. 3. Carboplatin/Alimta, started 02/10. Completed cycle 3. 4. On Nivolumab, started April. Completed 32 treatments, September 07. Treatment number 40 on December 27. Interval History Interval history: This is a pleasant 59-year-old gentleman, here for a follow-up visit. Patient was in house between December 27 and the for acute on chronic pancreatitis. On admission patient CT scan showed:Pancreatitis with peripancreatic fluid collections as described. Since 11/09/2019, there is new extension of a cyst/fluid from the lesser sac into the caudate lobe measuring 6.6 x 5.3 x 5.4 cm. Subsequently he was given IV fluid, pain management, bowel rest. He initially responded well and started eating. Subsequently he started having fever, Tmax 101*6F and become hypotensive. Patient required aggressive fluid resuscitation, initially received Levaquin and then subsequently changed to Zosyn as per ID. Patient was being followed by GI doctor wilton and ID Dr reynoso: Due to above incidence SIRS/hypotension: Thought to have question of pancreatic cyst infection or abscess. Case was discussed with the GI in [facility] as well as hospitalist service- patient. The concern was that patient would require EUS guided drainage. He was subsequently transferred to [facility]. He was initially admitted to [facility] because of hypotension, resuscitated with IV fluids, Zosyn was started. GI and ID were consulted. MRI of the abdomen 01/02 showed multiple peripancreatic pseudocysts containing debris insinuating in to caudate lobe of the liver, along lesser curvature of stomach and left subdiaphragmatic region, mildly increased from prior study. Agnieszka hepatis/caudate collection measures up to 7.4 cm previously 7.2 cm. Super infection not excluded. 1.8 cm hyperintense nonenhancing lesion within segment 7 right hepatic lobe, mildly increased in both size and T2 hyperintensity compared to November 2019. This finding was previously described as a treated metastasis and may now be complicated by pseudocyst formation. Smaller cystic lesions scattered throughout the pancreas, similar to prior study and again likely representing additional pseudocysts, dilated side branch ducts, non neoplastic cyst or side-branch intraductal papillary mucinous neoplasm. Diffuse mesenteric edema with trace perihepatic ascites. He underwent endoscopic ultrasound 01/05 the unfortunately location of the collections prevented endoscopic drain placement. GI recommended IR guided drainage because of the proximity to esophagus. IR also recommended not amenable to IR guided drainage. GI advised against laparoscopic drainage because of guarded surgical outcome with his comorbidity and to try conservative management with IV antibiotics. Fortunately patient responded well to antibiotic therapy and completed 2 weeks course of IV Zosyn as suggested by ID. He remained afebrile. Leukocytosis trended down. Encephalopathy: Acute confusion 01/09 likely related to sepsis. [employer] imaging wit hout new finding except many old lacunes. He is now here for a follow-up visit. He does not look too well. his blood pressure was noted to be low. 88 systolic. he continues to have a rash. he is on 5 mg of prednisone every other day. 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 He complains of abdominal pain in the periumbilical area. his taste is no good. He has nausea and dry heaves, sometimes he has vomiting. No heartburn or indigestion. His bowels are working without any gross blood in it. His appetite is not that good. He has lost a lot of weight. He is very fatigued. his brother recently on at [facility]. His spirits are down. Rest of the review of systems is unremarkable. Review of Systems - Constitutional Reports body ache(s), Reports fatigue, Reports lack of energy, Reports malaise, Reports weight loss - Eyes Denies blurry vision - ENT Reports system reviewed and no additional complaints, except as documented - Cardiovascular Denies chest pain at rest - Respiratory Denies chest congestion - Gastrointestinal Reports abdominal pain, Reports nausea, Reports vomiting - Neurologic Reports system reviewed and no additional complaints, except as documented, Reports dizziness, Denies lack of coordination, Denies focal weakness - Psychiatric Reports anxiety - Endocrine Denies excessive sweating - Hematologic/Lymphatic Denies easy bleeding - Allergic/Immunologic Denies GI upset with certain foods PMFSH Medical History: Medical History (Last Updated 03/08/20 @ 11:13 by Yuni Angeles MD) Lupus anticoagulant disorder Myelofibrosis Pancreatic pseudocyst Polycythemia vera TIA (transient ischemic attack) Surgical History: Surgical History (Last Updated 03/08/20 @ 11:13 by Yuni Angeles MD) S/P herniorrhaphy Home Medications and Allergies Home Medications Medication Instructions Recorded Confirmed Type atorvastatin 1 tab PO BEDTIME 03/28/20 03/28/20 History docusate sodium [Colace] 100 mg PO BID 03/28/20 03/28/20 History doxycycline hyclate 1 cap PO BID 03/28/20 03/28/20 History fluocinonide 1 applic TOPICAL BID 03/28/20 03/28/20 History folic acid 1 tab PO DAILY 03/28/20 03/28/20 History pbepoz-bjvxsuqf-[id number] [Creon] 1 cap PO TID 03/28/20 03/28/20 History mycophenolate mofetil [CellCept] 500 mg PO TID 03/28/20 03/28/20 History polyethylene glycol 3350 [Miralax] 17 g PO DAILY 03/28/20 03/28/20 History tamsulosin 1 cap PO DAILY 03/28/20 03/28/20 History Allergies Allergy/AdvReac Type Severity Reaction Status Date / Time oxycodone [OXYCODONE] Allergy Unknown VOMITING, Unverified 02/04/20 16:52 nausea and vomiting morphine Allergy Unknown doesn't Uncoded 03/05/17 00:00 work Exam Vital signs: Vital Signs Temp 97.6 F 03/28/20 09:10 Pulse 69 03/28/20 09:10 Resp 18 03/28/20 09:10 BP 80/51 L 03/28/20 09:10 Pulse Ox 99 03/28/20 09:10 Intake & Output 03/27/20 03/28/20 03/28/20 18:59 06:59 18:59 Other: Weight 62.3 kg Weight 62.3 kg Body Mass Index 19.1 - Constitutional Present: mild distress - Routine HEENT Exam Head: Present: normal inspection ENT: Present: mucous membranes moist - Routine Neck Exam Present: full ROM - Routine Respiratory Exam Present: CTAB - Routine Cardiovascular Exam Cardiovascular: Present: RRR, S1, S2 - Routine Abdominal Exam Present: hyperactive bowel sounds, soft, nontender - Routine Extremities Exam Present: nontender - Routine Skin Exam Present: intact - Routine Neurological Exam Present: alert, oriented X3 - Detailed Neurological Exam: Coma Scale Verbal Response: Oriented (5) - Routine Psychiatric Exam Present: normal affect, anxious Data - Labs CBC & Chem 7: 03/28/20 09:30 03/28/20 09:30 Progress Note: A/P (1) Non-small cell carcinoma of lung 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 Polycythemia Vera. It transformed into Myelofibrosis. He was on phlebotomies for several years, initially. 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 He has done extremely well, from that perspective and remains in remission. 2. He has had a mild chronic Leukocytosis, that could partly be related to smoking. 3. Adenocarcinoma of the Lung, diagnosed with Liver Metastases, 01/04: Pathology: Poorly differentiated Adenocarcinoma of Lung Origin. The EGFR, ALK and PDL-1 mutation, negative. He received 4 cycles of chemotherapy with carboplatin, pemetrexed, 04/14/2018. He had disease progression. He has been on Nivolumab, started in April 28 2018. His TSH is low. He had a restaging PET scan on October 30 which revealed: 1.There has been complete metabolic response to therapy of FDG avid lingular and left pleural-based lesions present on the prior PET CT scan dated 01/09/2018. A residual spiculated nodule in the lingula persists, but is significantly smaller when compared to both the prior PET CT scan and the more recent diagnostic CT scan dated 04/18/2018. 2. There has been complete metabolic response to therapy of two previously present intensely FDG avid liver lesions. Some residual hypodensities are present at these sites on the CT images, but these show no abnormal FDG activity. 3. There has been complete resolution on both the FDG PET and CT images of an FDG avid lesion passing through the left 10th interspace posterolaterally. 4. No additional or new abnormalities suspicious for metastatic or other malignant lesions are noted. He did stabilize. He is on a prednisone taper. Back in October, he was in house for pancreatitis/pseudocyst and bacteremia. He still has some residual issues. At his last visit a couple of months ago he was rather hypotensive. He was admitted. He required transferred to [facility]. Both GI and IR did not feel they could attempt to drain the infected pseudocysts. He was given 2 weeks of IV Zosyn. With that he improved. He is now in the process of recuperating. His Most recent CT scan revealed: 1. Irregular opacity/mass in the inferior left upper lobe/lingula is not significantly changed since the previous PET/CT of 10/30/2018. This is the site of known malignancy. The finding has significantly decreased in size compared to previous CTs of 2018. 2. Changes of emphysema. 3. A few subcentimeter noncalcified right upper lobe subpleural lung nodules are stable since the previous chest CT of 04/18/2018. 4. Improving pancreatic and peripancreatic fluid collections. 5. Multiple new rim enhancing liver lesions; differential possibilities include metastases versus hepatic abscesses. The appearance of multiple new liver lesions seen on the current CT is similar to that the liver lesions seen on the CT scan of 12/03/2017 the left hepatic lobe lesion seen on the CT scan of 12/03/2017 is not seen on the current examination. Hepatic metastases are favored given the appearance of the lesions similar to the previous studies and interval improvement of the pancreatic/peripancreatic infectious/inflammatory process in the upper abdomen. Disease progression, with progressive liver metastases. As such I have elected to change his therapy. He was started on pembrolizumab, couple of weeks ago. His PDL1 was 30%. Details of the regimen including potential side effects of hypersensitivity reactions, skin rash, shortness of breath, risk of immune related reactions, pancytopenia, risk of infections, need for antibiotic blood transfusions as well as growth factors were all Addressed with him. He understood and was started on the treatment. PLAN: He is here to receive cycle 2. He was rather hypotensive, was given extra hydration. I requested Dr. Alvarenga to lower his antihypertensive medications now that he has lost weight he probably does not need them. His magnesium was low. this was replaced. He completed his dose of pembrolizumab today. He will return in 3 weeks for his next cycle. I will then re-stage him with a CT scan. Prescription for Prilosec and magnesium were sent to his pharmacy. - Time Spent With Patient Total time spent is greater than 50% in coordination of care (as documented) at patient's floor/unit and/or counseling patient: 25 - 35 minutes
[2020-03-28 09:42] LABS: Hematocrit 35.8 % (42-52); Hemoglobin 11.1 g/dl (14.0-18.0); Mean Corpuscular Hemoglobin 28.2 pg (27.0-33.0); Mean Corpuscular Volume 90.9 fL (80-98); Mean Platelet Volume 11.7 fL (9.4-12.4); NRBC Pct Auto 0.4 /100WBC (0.0-0.2); Platelet Count 266 X10*3/uL (160-400); Red Blood Count 3.94 X10*6/uL (4.60-5.80)
[2020-03-28 09:44] LABS: WBC ABN SCTR FOR CBC 1
[2020-03-28 10:05] LABS: Alanine Aminotransferase 10 U/L (0-40); Albumin Level 3.2 g/dL (3.5-5.0); Alkaline Phosphatase 121 U/L (39-117); Anion Gap 16 (12-20); Aspartate Amino Transferase 18 U/L (5-37); Bilirubin Total 0.5 mg/dL (0.0-1.0); Calcium 10.8 mg/dL (8.4-10.2); Carbon Dioxide 23 mmol/L (22-29); Chloride 108 mmol/L (96-108); Creatinine Clr Calc Pharmacy 36.5; Estimated Glomerular Filt Rate 37; Glucose Random 95 mg/dL (60-115); Potassium 4.3 mmol/l (3.3-5.1); Sodium 143 mmol/L (135-145)
[2020-03-28 10:06] LABS: Blood Urea Nitrogen 27 mg/dL (9-16)
[2020-03-28 10:16] LABS: Band Neutrophils Percent 1 % (3-5); Basophils Percent Manual 1 % (0-1); Eosinophils Percent Manual 8 % (0-4); Lymphocytes Percent Manual 18 % (20-40); Monocytes Percent Manual 9 % (2-11); Neutrophils Percent Manual 63 % (45-73); Nucleated Red Blood Cells 1 /100WBC (0-0)
[2020-03-28 10:17] LABS: Pappenheimer Bodies PRESENT; Platelet Estimate NORMAL (NORMAL); Platelet Morphology Comment NORMAL
[2020-03-28 10:18] LABS: RBC Morphology NOTED
[2020-03-28 10:21] LABS: Basophilic Stippling 1+; Howell Jolly Bodies PRESENT; Hypochromasia 1+
[2020-03-28 10:22] LABS: Acanthocytes 1+; Schistocytes 1+; Target Cells 1+
[2020-03-28 10:23] LABS: Basophils Abs Manual 0.1 X10*3/uL (0.0-0.3); Lymphocytes Absolute Manual 2.2 X10*3/uL (0.6-4.8); Monocytes Absolute Manual 1.1 X10*3/uL (0.0-1.2); Neutrophils Absolute Manual 7.7 X10*3/uL (2.2-7.9)
[2020-03-28 10:24] LABS: Magnesium 0.7 mg/dL (1.6-2.6); Total Protein 5.6 g/dL (6.5-8.0)
[2020-03-28 10:27] LABS: Thyroid Stimulating Hormone 3.06 uIU/mL (0.32-4.0)
[2020-03-28] MEDS: Magnesium Sulfate/H2O 2 GM/50 ML PIGGYBACK IV (10:50)
[2020-03-28 11:18] VITALS: BP 97/58
[2020-03-28] MEDS: 0.9 % Sodium Chloride 500 ML 250 ML IVCONT (11:37)
[2020-03-28 12:05] VITALS: BP 93/56; PULSE 52; O2SAT 99
[2020-03-28] MEDS: Omeprazole 20 MG CAPSULE.DR PO (12:31)
[2020-03-28 13:21] VITALS: BP 93/51
[2020-03-28 13:22] VITALS: BP 88/57
[2020-03-28] MEDS: diphenhydrAMINE HCL 25 MG TABLET PO (13:44)
[2020-03-28] MEDS: Acetaminophen 325 MG TABLET 650 MG PO (13:45)
[2020-03-28] MEDS: ondansetron HCL/NS 16 MG/50 ML PIGGYBACK 200 MG IV (13:49)
--- NOTE | 2020-03-28 14:02 | MHC.HEMONCSW ---
FAXED PA REQUEST FOR DENOSUMAB TO [facility]. WAIT DECISION.
[2020-03-28] MEDS: Heparin Sodium,Porcine Flush 500 UNIT/5 ML SYRINGE IVFLUSH (15:33)
--- NOTE | 2020-03-28 15:48 | MHC.HEMONCSW ---
RECEIVED FAX AUTHORIZING DENOSUMAB INJ ONCE PER MONTH FROM [facility]. A# [id number] INFORMED ROSA MARTÍNEZ. DATE RANGE.....03/28/20 TO 03/27/21.
--- NOTE | 2020-03-28 16:27 | MHC.HEMONC ---
Pt here for chemo infusion. Port accessed, good blood return. Bp on arrival 80/51. IV fluid infusing. Offers no c/o dizziness. Has had intermittent dizziness at home. Seen by Dr Angeles. Labs refused, magnesium critical, 0.8. Magnesium 2 gm IV ordered and given. Bp's remained low, pt states has been running low at home also. Call placed to Dr Alvarenga regarding adjustment of Bp meds. Received keytruda and tolerated well. Will be starting magnesium at home, prescription sent to pharmacy. Plan to return in one week for labs.
[2020-04-04 09:15] VITALS: BP 103/55; PULSE 107; TEMP 36.3; O2SAT 98
[2020-04-04 09:42] LABS: MANUAL DIFF FLAG NO
[2020-04-04 09:58] LABS: Basophils Absolute Auto 0.2 X10*3/uL (0.0-0.2); Basophils Percent Auto 1.5 % (0-2); Eosinophils Absolute Auto 1.6 X10*3/uL (0.0-0.4); Hematocrit 35.9 % (42-52); Hemoglobin 11.4 g/dl (14.0-18.0); Imm Gran Abs Auto 0.03 X10*3/uL (0.00-0.03); Imm Gran Pct Auto 0.2 % (0.0-0.4); Lymphocytes Absolute Auto 3.4 X10*3/uL (1.2-4.9); Mean Corpuscular HGB Conc 31.8 g/dl (31.0-36.0); Mean Corpuscular Hemoglobin 27.9 pg (27.0-33.0); Mean Platelet Volume 12.5 fL (9.4-12.4); Monocytes Absolute Auto 1.2 X10*3/uL (0.1-1.2); Monocytes Percent Auto 8.8 % (2-11); NRBC Pct Auto 0.6 /100WBC (0.0-0.2); Neutrophils Absolute Auto 6.8 X10*3/uL (2.0-8.3); Neutrophils Percent Auto 51.5 % (45-73); Platelet Count 307 X10*3/uL (160-400); Red Blood Count 4.08 X10*6/uL (4.60-5.80); Red Cell Distribution Width 15.1 % (11.0-16.0); White Blood Count 13.1 X10*3/uL (4.8-10.8)
[2020-04-04] MEDS: 0.9 % Sodium Chloride 1,000 ML 500 ML IVCONT (10:05)
[2020-04-04 10:28] LABS: Alanine Aminotransferase 11 U/L (0-40); Albumin Level 3.1 g/dL (3.5-5.0); Anion Gap 15 (12-20); Aspartate Amino Transferase 17 U/L (5-37); Bilirubin Total 0.5 mg/dL (0.0-1.0); Blood Urea Nitrogen 24 mg/dL (9-16); Carbon Dioxide 26 mmol/L (22-29); Chloride 104 mmol/L (96-108); Creatinine Clr Calc Pharmacy 36.1; Estimated Glomerular Filt Rate 36; Glucose Random 104 mg/dL (60-115); Potassium 4.3 mmol/l (3.3-5.1); Sodium 141 mmol/L (135-145); Total Protein 5.7 g/dL (6.5-8.0)
[2020-04-04 10:45] LABS: Alkaline Phosphatase 146 U/L (39-117); Calcium 11.6 mg/dL (8.4-10.2)
[2020-04-04 11:00] VITALS: BP 100/61; PULSE 71; O2SAT 99
[2020-04-04] MEDS: ondansetron HCL/NS 16 MG/50 ML PIGGYBACK 200 MG IV (12:03)
--- NOTE | 2020-04-04 13:20 | PM.HEMONCPN ---
Medical Summary - Medical Summary Chief complaint: Follow-up for: 1. Non-small cell lung carcinoma.2. Myelofibrosis. Medical Summary: DIAGNOSES: 1. Myelofibrosis. 2. History of lupus anticoagulant positivity. 3. Transient ischemic attack, 2007, with left hemiparesis; now resolved. 4. Pancreatitis, he had repeated episodes; now resolved. 5. 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 CURRENT THERAPY: 1. 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 2. Coumadin 5 mg. daily. INR from February 26, 2.7. 3. Carboplatin/Alimta, started 02/10. Completed cycle 3. 4. On Nivolumab, started April. Completed 32 treatments, September 07. Treatment number 40 on December 27. currently on pembrolizumab. Interval History Interval history: This is a pleasant 59-year-old gentleman, here for a follow-up visit. He does not feel too well. he feels rather fatigued. His blood pressure was noted to be low. 103 systolic. He complains of abdominal pain in the periumbilical area. His taste is altered. He has nausea and dry heaves. it happens 4 to 5 times a day. His Zofran has not been delivered from the pharmacy, yet. No heartburn or indigestion. His bowels are working without any gross blood in it. His appetite is not that good. He has lost weight. He continues to have a rash. He is on 5 mg of prednisone every other day. His brother recently last , at [facility]. His spirits are down. Rest of the review of systems is unremarkable Previous History: Patient was in house between December 27 and the for acute on chronic pancreatitis. On admission patient CT scan showed:Pancreatitis with peripancreatic fluid collections as described. Since 11/09/2019, there is new extension of a cyst/fluid from the lesser sac into the caudate lobe measuring 6.6 x 5.3 x 5.4 cm. Subsequently he was given IV fluid, pain management, bowel rest. He initially responded well and started eating. Subsequently he started having fever, Tmax 101*6F and become hypotensive. Patient required aggressive fluid resuscitation, initially received Levaquin and then subsequently changed to Zosyn as per ID. Patient was being followed by GI doctor wilton and ID Dr reynoso: Due to above incidence SIRS/hypotension: Thought to have question of pancreatic cyst infection or abscess. Case was discussed with the GI in [facility] as well as hospitalist service-patient. The concern was that patient would require EUS guided drainage. He was subsequently transferred to [facility]. He was initially admitted to [facility] because of hypotension, resuscitated with IV fluids, Zosyn was started. GI and ID were consulted. MRI of the abdomen 01/02 showed multiple peripancreatic pseudocysts containing debris insinuating in to caudate lobe of the liver, along lesser curvature of stomach and left subdiaphragmatic region, mildly increased from prior study. Agnieszka hepatis/caudate collection measures up to 7.4 cm previously 7.2 cm. Super infection not excluded. 1.8 cm hyperintense nonenhancing lesion within segment 7 right hepatic lobe, mildly increased in both size and T2 hyperintensity compared to November 2019. This finding was previously described as a treated metastasis and may now be complicated by pseudocyst formation. Smaller cystic lesions scattered throughout the pancreas, similar to prior study and again likely representing additional pseudocysts, dilated side branch ducts, non neoplastic cyst or side-branch intraductal papillary mucinous neoplasm. Diffuse mesenteric edema with trace perihepatic ascites. He underwent endoscopic ultrasound 01/05 the unfortunately location of the collections prevented endoscopic drain placement. GI recommended IR guided drainage because of the proximity to esophagus. IR also recommended not amenable to IR guided drainage. GI advised against laparoscopic drainage because of guarded surgical outcome with his comorbidity and to try conservative management with IV antibiotics. Fortunately patient responded well to antibiotic therapy and completed 2 weeks course of IV Zosyn as suggested by ID. He remained afebrile. Leukocytosis trended down. Encephalopathy: Acute confusion 01/09 likely related to sepsis. 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 Review of Systems - Constitutional Reports no additional constitutional complaints, Reports fatigue, Denies fever(s), Reports lack of energy, Reports malaise, Reports poor appetite - Eyes Reports no additional eye complaints - ENT Reports no additional ear, nose, mouth, and throat complaints - Cardiovascular Reports no additional cardiovascular complaints - Respiratory Reports no additional respiratory complaints - Gastrointestinal Reports no additional gastrointestinal complaints - Genitourinary Genitourinary: Reports no additional male genitourinary complaints - Musculoskeletal Reports no additional musculoskeletal complaints - Integumentary/Breasts Skin/Breast: Reports no additional skin complaints, Reports rash - Neurologic Reports no additional neurologic complaints, Reports dizziness, Denies lack of coordination, Denies focal weakness - Psychiatric Reports no additional psychiatric complaints - Endocrine Reports no additional endocrine complaints - Hematologic/Lymphatic Reports no additional hematologic/lymphatic complaints [facility] Medical History: Medical History (Last Updated 03/08/20 @ 11:13 by Yuni Angeles MD) Lupus anticoagulant disorder Myelofibrosis Pancreatic pseudocyst Polycythemia vera TIA (transient ischemic attack) Functional capacity: uses cane/walker Patient : No Surgical History: Surgical History (Last Updated 03/08/20 @ 11:13 by Yuni Angeles MD) S/P herniorrhaphy Home Medications and Allergies Current Medications: Current Medications Generic Name Dose Route Start Last Admin Trade Name Freq PRN Reason Stop Dose Admin Denosumab 120 mg 04/04/20 00:00 04/04/20 12:56 Denosumab 120 Mg/1.7 Ml Vial SUBCUT 04/04/20 23:59 120 mg ONCE QUINTON Administration Ondansetron HCl 16 mg in 50 mls @ 200 mls/hr 04/04/20 11:45 04/04/20 12:20 Zofran IV Infused ONCE QUINTON Infusion Home Medications Medication Instructions Recorded Confirmed Type atorvastatin 1 tab PO BEDTIME 03/28/20 03/28/20 History docusate sodium [Colace] 100 mg PO BID 03/28/20 03/28/20 History doxycycline hyclate 1 cap PO BID 03/28/20 03/28/20 History fluocinonide 1 applic TOPICAL BID 03/28/20 03/28/20 History folic acid 1 tab PO DAILY 03/28/20 03/28/20 History [id number] [Creon] 1 cap PO TID 03/28/20 03/28/20 History mycophenolate mofetil [CellCept] 500 mg PO TID 03/28/20 03/28/20 History polyethylene glycol 3350 [Miralax] 17 g PO DAILY 03/28/20 03/28/20 History tamsulosin 1 cap PO DAILY 03/28/20 03/28/20 History Allergies Allergy/AdvReac Type Severity Reaction Status Date / Time oxycodone [OXYCODONE] Allergy Unknown VOMITING, Unverified 02/04/20 16:52 nausea and vomiting morphine Allergy Unknown doesn't Uncoded 03/05/17 00:00 work Exam Vital signs: Vital Signs Temp 97.6 F 03/28/20 09:10 Pulse 69 03/28/20 09:10 Resp 18 03/28/20 09:10 BP 80/51 L 03/28/20 09:10 Pulse Ox 99 03/28/20 09:10 Intake & Output 03/27/20 03/28/20 03/28/20 18:59 06:59 18:59 Other: Weight 62.3 kg Weight 62.3 kg Body Mass Index 19.1 - Constitutional Present: mild distress - Routine HEENT Exam Head: Present: normal inspection - Routine Neck Exam Present: full ROM - Routine Respiratory Exam Present: CTAB - Routine Cardiovascular Exam Cardiovascular: Present: RRR, S1, S2 - Routine Abdominal Exam Present: hyperactive bowel sounds, soft, nontender - Routine Extremities Exam Present: nontender - Routine Skin Exam Present: intact - Routine Neurological Exam Present: alert, oriented X3 - Routine Psychiatric Exam Present: normal affect, anxious Data - Labs CBC & Chem 7: 04/04/20 09:30 04/04/20 09:30 Labs: Laboratory Results - last 24 hr 04/04/20 04/04/20 09:30 09:30 WBC 13.1 H RBC 4.08 L Hgb 11.4 L Hct 35.9 L MCV 88.0 MCH 27.9 MCHC 31.8 RDW 15.1 Plt Count 307 MPV 12.5 H Immature Gran % (Auto) 0.2 Neut % (Auto) 51.5 Lymph % (Auto) 26.0 Crockett % (Auto) 8.8 Eos % (Auto) 12.0 H Baso % (Auto) 1.5 Lymph # (Auto) 3.4 Crockett # (Auto) 1.2 Eos # (Auto) 1.6 H Baso # (Auto) 0.2 Abs Immat Gran (auto) 0.03 Absolute Neuts (auto) 6.8 Absolute Nucleated RBC 0.080 H Nucleated RBC % (auto) 0.6 H Sodium 141 Potassium 4.3 Chloride 104 Carbon Dioxide 26 Anion Gap 15 BUN 24 H Creatinine 1.89 H Estim Creat Clear Calc 36.1 Estimated GFR 36 Random Glucose 104 Calcium 11.6 H D Total Bilirubin 0.5 AST 17 ALT 11 Alkaline Phosphatase 146 H D Total Protein 5.7 L Albumin 3.1 L Progress Note: A/P (1) Non-small cell carcinoma of lung 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 Polycythemia Vera. It transformed into Myelofibrosis. He was on phlebotomies for several years, initially. 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 He has done extremely well, from that perspective and remains in remission. 2. He has had a mild chronic Leukocytosis, that could partly be related to smoking. 3. Adenocarcinoma of the Lung, diagnosed with Liver Metastases, 01/04: Pathology: Poorly differentiated Adenocarcinoma of Lung Origin. The EGFR, ALK and PDL-1 mutation, negative. He received 4 cycles of chemotherapy with carboplatin, pemetrexed, 04/14/2018. He had disease progression. He has been on Nivolumab, started in April 28 2018. His TSH is low. He had a restaging PET scan on October 30 which revealed: 1.There has been complete metabolic response to therapy of FDG avid lingular and left pleural-based lesions present on the prior PET CT scan dated 01/09/2018. A residual spiculated nodule in the lingula persists, but is significantly smaller when compared to both the prior PET CT scan and the more recent diagnostic CT scan dated 04/18/2018. 2. There has been complete metabolic response to therapy of two previously present intensely FDG avid liver lesions. Some residual hypodensities are present at these sites on the CT images, but these show no abnormal FDG activity. 3. There has been complete resolution on both the FDG PET and CT images of an FDG avid lesion passing through the left 10th interspace posterolaterally. 4. No additional or new abnormalities suspicious for metastatic or other malignant lesions are noted. He did stabilize. He is on a prednisone taper. Back in October, he was in house for pancreatitis/pseudocyst and bacteremia. He still has some residual issues. At his last visit a couple of months ago he was rather hypotensive. He was admitted. He required transferred to [facility]. Both GI and IR did not feel they could attempt to drain the infected pseudocysts. He was given 2 weeks of IV Zosyn. With that he improved. He is now in the process of recuperating. His Most recent CT scan revealed: 1. Irregular opacity/mass in the inferior left upper lobe/lingula is not significantly changed since the previous PET/CT of 10/30/2018. This is the site of known malignancy. The finding has significantly decreased in size compared to previous CTs of 2018. 2. Changes of emphysema. 3. A few subcentimeter noncalcified right upper lobe subpleural lung nodules are stable since the previous chest CT of 04/18/2018. 4. Improving pancreatic and peripancreatic fluid collections. 5. Multiple new rim enhancing liver lesions; differential possibilities include metastases versus hepatic abscesses. The appearance of multiple new liver lesions seen on the current CT is similar to that the liver lesions seen on the CT scan of 12/03/2017 the left hepatic lobe lesion seen on the CT scan of 12/03/2017 is not seen on the current examination. Hepatic metastases are favored given the appearance of the lesions similar to the previous studies and interval improvement of the pancreatic/peripancreatic infectious/inflammatory process in the upper abdomen. Disease progression, with progressive liver metastases. As such I have elected to change his therapy. He was started on pembrolizumab, couple of weeks ago. His PDL1 was 30%. Details of the regimen including potential side effects of hypersensitivity reactions, skin rash, shortness of breath, risk of immune related reactions, pancytopenia, risk of infections, need for antibiotic blood transfusions as well as growth factors were all Addressed with him. He understood and was started on the treatment. He completed cycle 2. PLAN: He was rather hypotensive, was given IV hydration. He was given IV Zofran, for the nausea and retching. I Requested Dr. Amaya to lower his antihypertensive medications now that he has lost weight he probably does not need them. He was asked to stop them for now. He will return in 3 weeks for his next cycle of Pembrolizumab. I will then re-stage him with a CT scan. - Time Spent With Patient Total time spent is greater than 50% in coordination of care (as documented) at patient's floor/unit and/or counseling patient: 25 - 35 minutes
[2020-04-04] MEDS: Flu Vacc QS2020-21(6mos up)/PF 0.5 ML SYRINGE IM (13:23)
--- NOTE | 2020-04-04 14:08 | MHC.HEMONCSW ---
PT NOT FEELING WELL, STATES HE IS DECONDITIONED AND DEPRESSED THAT HIS BROTHER . REASONS FOR BROTHERS APPEAR TO BE RESPIRATORY RELATED. HIS MANNEQUIN DECORATOR AND FLORAL DEPARTMENT SPECIALIST AT [facility] ARE AWARE OF THESE ISSUES. SERVICES CONTINUE. HIS LIBRARIAN SPECIALIST CONTINUES TO SEE HIM BUT AMOUNT OF HOURS ARE IN QUESTION....THIS IS NOT NEW. EDUCATION AND SUPPORT PROVIDED.
--- NOTE | 2020-04-04 16:30 | MHC.HEMONC ---
Pt not feeling well. States feels flushed and nauseous. Brought to room and in bed. Bp 103/55, HR 107. Port accessed, good blood return. Labs drawn, IV fluid infusing. Labs reviewed. Calcium 11.6, ok for Denosumab. Denosumab given. Pt also asking for flu shot today. Discussed with Dr Angeles, and ok to give to pt. Flu vaccine given. Pt states feels much better. Had some lunch. To return for labs in one week.
[2020-04-11 09:07] VITALS: BP 100/64; PULSE 100; TEMP 37.1; O2SAT 98
[2020-04-11 09:46] LABS: MANUAL DIFF FLAG NO
[2020-04-11 09:47] LABS: Basophils Absolute Auto 0.2 X10*3/uL (0.0-0.2); Basophils Percent Auto 0.9 % (0-2); Eosinophils Absolute Auto 1.9 X10*3/uL (0.0-0.4); Eosinophils Percent Auto 10.9 % (0-4); Hematocrit 33.7 % (42-52); Hemoglobin 10.7 g/dl (14.0-18.0); Imm Gran Abs Auto 0.06 X10*3/uL (0.00-0.03); Imm Gran Pct Auto 0.3 % (0.0-0.4); Lymphocytes Absolute Auto 3.3 X10*3/uL (1.2-4.9); Lymphocytes Percent Auto 18.7 % (20-40); Mean Corpuscular HGB Conc 31.8 g/dl (31.0-36.0); Mean Corpuscular Hemoglobin 27.6 pg (27.0-33.0); Mean Corpuscular Volume 87.1 fL (80-98); Mean Platelet Volume 11.6 fL (9.4-12.4); Monocytes Absolute Auto 1.2 X10*3/uL (0.1-1.2); Monocytes Percent Auto 6.9 % (2-11); NRBC Pct Auto 0.3 /100WBC (0.0-0.2); Neutrophils Percent Auto 62.3 % (45-73); Platelet Count 349 X10*3/uL (160-400); Red Blood Count 3.87 X10*6/uL (4.60-5.80); Red Cell Distribution Width 15.3 % (11.0-16.0); White Blood Count 17.6 X10*3/uL (4.8-10.8)
[2020-04-11 10:13] LABS: Alanine Aminotransferase 9 U/L (0-40); Albumin Level 3.1 g/dL (3.5-5.0); Alkaline Phosphatase 142 U/L (39-117); Anion Gap 15 (12-20); Aspartate Amino Transferase 17 U/L (5-37); Bilirubin Total 0.4 mg/dL (0.0-1.0); Blood Urea Nitrogen 19 mg/dL (9-16); Carbon Dioxide 24 mmol/L (22-29); Chloride 106 mmol/L (96-108); Creatinine Clr Calc Pharmacy 49.1; Estimated Glomerular Filt Rate 52; Glucose Random 105 mg/dL (60-115); Sodium 141 mmol/L (135-145); Total Protein 5.5 g/dL (6.5-8.0)
[2020-04-11 10:21] LABS: Calcium 8.2 mg/dL (8.4-10.2)
--- NOTE | 2020-04-11 13:00 | MHC.HEMONC ---
Pt here for labs. States feels better than he did when he was here last week. Port accessed with good blood return. Results reviewed. WBC 17.6, reported to Dr Angeles. Pt asking for pneumonia vaccine. Vaccine ordered and given. Tolerated well. To return on 04/18 for javier.
--- NOTE | 2020-04-18 08:50 | MHC.HEMONC ---
CALL - Pt called to cx today's appt. Pt is in the hospital
--- NOTE | 2020-04-25 12:00 | MHC.HEMONC ---
pr called s/p hospitalization here last week to report that he is in excrutiating pain with his knees and they are swollen and inflamed. He has no Dilaudid and was not given a refill rx when he left. He DOES have MS Contin and is taking it daily as prescribed. He can barely move. Spoke with Dr Angeles. She will write for Dilaudid and pt will come in Saturday for labs I gave discharge summary to Eri, Nurse Navigator and discussed with her and Arabella CARREON that pt has f/u with Providers that need to be booked so he can attend once his pain is controlled.
--- NOTE | 2020-04-27 09:51 | MHC.HEMONC ---
APPTS s/p discharge - 04/27/20 - Update on Ortho and Nephro appt. Appt w Dr. Miranda scheduled for 05/04/20 @ 10:30 am Leonard Garibay's brother is going to call Dr. Smith's office to schedule appt as he coordinates Leonard's rides. Declan was informed of the oter 2 appts - Dr. Calles and Dr. Miranda. 04/25/20 T/C to Leonard re: follow up appointment recommendations s/p discharge from [facility]. He did receive his dilaudid from Dr. Angeles today and this has taking the edge off of his significant R knee pain. *Appt was scheduled w Dr. Rausch, Inf. Dz for this Saturday, 04/29 at 1:30pm. Dx: Fever w R knee pain and swelling - on Doxy now. *Left message w office - Told pt. to expect a call from Dr. Smith's office, Nephrology (hypocalcemia) for hospital d/c follow-up. He was seen in-house by partner Dr. Jaime. *Also, I left message w Ashley Williamson, RN, Ortho Navigator at Dr. Miranda's office for hospital d/c follow-up. He was seen in-house by RADHA Whitehead. *Pt. agrees to this plan of care. *Pt. agrees to this plan of care.
[2020-05-02 08:55] VITALS: BMI 18.4
[2020-05-02 08:56] VITALS: BP 122/83; PULSE 60; RESP 18; TEMP 36.9; O2SAT 100
[2020-05-02 09:06] LABS: Hematocrit 28.7 % (42-52); Hemoglobin 8.9 g/dl (14.0-18.0); Mean Corpuscular Hemoglobin 26.6 pg (27.0-33.0); Mean Corpuscular Volume 85.9 fL (80-98); Mean Platelet Volume 10.8 fL (9.4-12.4); Platelet Count 617 X10*3/uL (160-400); Red Blood Count 3.34 X10*6/uL (4.60-5.80); Red Cell Distribution Width 17.4 % (11.0-16.0)
[2020-05-02 09:11] LABS: WBC ABN SCTR FOR CBC 1
[2020-05-02 09:33] LABS: Band Neutrophils Percent 2 % (3-5); Basophils Percent Manual 3 % (0-1); Eosinophils Percent Manual 6 % (0-4); Lymphocytes Percent Manual 12 % (20-40); Monocytes Percent Manual 5 % (2-11); Neutrophils Percent Manual 72 % (45-73); Platelet Estimate INCREASED (NORMAL); Platelet Morphology Comment NOTED
[2020-05-02 09:34] LABS: Large Platelet PRESENT
[2020-05-02 09:36] LABS: Acanthocytes 1+; Basophilic Stippling 1+; Pappenheimer Bodies PRESENT; RBC Morphology NOTED; Schistocytes 1+
[2020-05-02 09:37] LABS: Burr Cells 1+; Target Cells 1+
[2020-05-02 09:38] LABS: Basophils Abs Manual 0.4 X10*3/uL (0.0-0.3); Eosinophils Absolute Manual 0.9 X10*3/UL (0.0-0.8); Lymphocytes Absolute Manual 1.8 X10*3/uL (0.6-4.8); Monocytes Absolute Manual 0.7 X10*3/uL (0.0-1.2); White Blood Count 14.9 X10*3/uL (4.8-10.8)
[2020-05-02 09:48] LABS: Alanine Aminotransferase 11 U/L (0-40); Alkaline Phosphatase 177 U/L (39-117); Anion Gap 15 (12-20); Aspartate Amino Transferase 25 U/L (5-37); Bilirubin Total 0.4 mg/dL (0.0-1.0); Blood Urea Nitrogen 16 mg/dL (9-16); Calcium 7.1 mg/dL (8.4-10.2); Carbon Dioxide 24 mmol/L (22-29); Chloride 108 mmol/L (96-108); Creatinine Clr Calc Pharmacy 57.7; Estimated Glomerular Filt Rate > 60; Glucose Random 137 mg/dL (60-115); Magnesium 1.2 mg/dL (1.6-2.6); Potassium 4.4 mmol/l (3.3-5.1); Sodium 143 mmol/L (135-145); Total Protein 5.6 g/dL (6.5-8.0)
[2020-05-02] MEDS: Magnesium Sulfate/H2O 2 GM/50 ML PIGGYBACK IV (10:03)
--- NOTE | 2020-05-02 13:56 | MHC.HEMONCSW ---
MET WITH PATIENT WHO REPORTS FEELING OVERWHELMED BY HIS ILL HEALTH. ALSO, HIS BROTHER LAST MONTH. ALLOWED PATIENT TO TALK ABOUT HIS FRUSTRATIONS AND OFFERRED GUIDANCE. REFUSES COUNSELING REFERRAL. EDUCATION AND SUPPORT PROVIDED.
--- NOTE | 2020-05-02 15:42 | MHC.HEMONC ---
Pt is in for labs and stayed for Magnesium IV per Dr Angeles. He has responded well to antibiotic and pain medicine for right knee pain. He is walking well but still losing weight. He did not feel ready for KEYTRUDA yet so we scheduled him for next week. Dr Angeles aware.
[2020-05-06 14:55] VITALS: BMI 18.4
[2020-05-09] MEDS: 0.9 % Sodium Chloride 500 ML IV (08:40)
[2020-05-09 09:05] VITALS: BP 86/60; PULSE 115; RESP 18; TEMP 36.5; O2SAT 99; BMI 18.5
[2020-05-09 09:25] LABS: Hematocrit 30.6 % (42-52); Hemoglobin 9.3 g/dl (14.0-18.0); Mean Corpuscular HGB Conc 30.4 g/dl (31.0-36.0); Mean Corpuscular Hemoglobin 26.8 pg (27.0-33.0); Mean Corpuscular Volume 88.2 fL (80-98); Mean Platelet Volume 10.7 fL (9.4-12.4); Platelet Count 569 X10*3/uL (160-400); Red Blood Count 3.47 X10*6/uL (4.60-5.80); Red Cell Distribution Width 18.6 % (11.0-16.0)
[2020-05-09 09:26] LABS: WBC ABN SCTR FOR CBC 1
[2020-05-09 10:01] LABS: Band Neutrophils Percent 0 % (3-5); Basophils Percent Manual 6 % (0-1); Eosinophils Percent Manual 18 % (0-4); Lymphocytes Percent Manual 11 % (20-40); Monocytes Percent Manual 3 % (2-11); Neutrophils Percent Manual 62 % (45-73); Platelet Estimate INCREASED (NORMAL)
[2020-05-09 10:02] LABS: Platelet Morphology Comment NOTED
[2020-05-09 10:03] LABS: Large Platelet PRESENT
[2020-05-09 10:04] LABS: Burr Cells 3+
[2020-05-09 10:05] LABS: Target Cells 1+
[2020-05-09 10:07] LABS: Acanthocytes 1+; Pappenheimer Bodies PRESENT; RBC Morphology NOTED
[2020-05-09 10:08] LABS: Schistocytes 1+
[2020-05-09 10:10] LABS: White Blood Count 22.2 X10*3/uL (4.8-10.8)
[2020-05-09 10:19] LABS: Lymphocytes Absolute Manual 22.2 X10*3/uL (0.6-4.8); Neutrophils Absolute Manual 13.8 X10*3/uL (2.2-7.9)
[2020-05-09 10:20] LABS: Basophils Abs Manual 1.3 X10*3/uL (0.0-0.3); Monocytes Absolute Manual 0.7 X10*3/uL (0.0-1.2)
[2020-05-09 10:24] VITALS: BP 114/58; PULSE 72
[2020-05-09 10:46] LABS: Albumin Level 2.9 g/dL (3.5-5.0); Alkaline Phosphatase 172 U/L (39-117); Anion Gap 14 (12-20); Bilirubin Total 0.4 mg/dL (0.0-1.0); Blood Urea Nitrogen 15 mg/dL (9-16); Carbon Dioxide 24 mmol/L (22-29); Chloride 106 mmol/L (96-108); Creatinine Clr Calc Pharmacy 55.1; Estimated Glomerular Filt Rate > 60; Glucose Random 100 mg/dL (60-115); Magnesium 1.2 mg/dL (1.6-2.6); Potassium 4.4 mmol/l (3.3-5.1); Sodium 140 mmol/L (135-145); Total Protein 5.5 g/dL (6.5-8.0)
[2020-05-09] MEDS: Magnesium Sulfate/D5W 1 GM/100 ML PIGGYBACK IV (11:07)
[2020-05-09 11:33] LABS: Alanine Aminotransferase 30 U/L (0-40); Aspartate Amino Transferase 35 U/L (5-37); Calcium 8.6 mg/dL (8.4-10.2)
[2020-05-09] MEDS: Acetaminophen 325 MG TABLET 650 MG PO (11:41)
[2020-05-09] MEDS: Magnesium Hydrox/Alum Hydrox 30 ML ORAL.SUSP PO (12:05)
[2020-05-09] MEDS: Heparin Sodium,Porcine Flush 500 UNIT/5 ML SYRINGE IVFLUSH (13:12)
--- NOTE | 2020-05-09 14:25 | MHC.HEMONC ---
Pt here for Jadiel. He is doing better than last week but BP low when he arrived. He was given 500cc NS and it improved. He had no sx. Appetite is satisfactory, his magnesium is low and he was given [address] Mathews. He ge well. He is having VNA and is keeping his MD appts. Return next week for f/u labs.
[2020-05-17 09:27] LABS: Basophils Absolute Auto 0.2 X10*3/uL (0.0-0.2); Basophils Percent Auto 0.9 % (0-2); Eosinophils Absolute Auto 4.8 X10*3/uL (0.0-0.4); Eosinophils Percent Auto 18.1 % (0-4); Hematocrit 30.9 % (42-52); Hemoglobin 9.5 g/dl (14.0-18.0); Imm Gran Abs Auto 0.15 X10*3/uL (0.00-0.03); Imm Gran Pct Auto 0.6 % (0.0-0.4); Lymphocytes Absolute Auto 3.7 X10*3/uL (1.2-4.9); Lymphocytes Percent Auto 14.1 % (20-40); MANUAL DIFF FLAG SCAN; Mean Corpuscular HGB Conc 30.7 g/dl (31.0-36.0); Mean Corpuscular Volume 87.8 fL (80-98); Mean Platelet Volume 10.5 fL (9.4-12.4); Monocytes Percent Auto 7.5 % (2-11); Neutrophils Absolute Auto 15.6 X10*3/uL (2.0-8.3); Neutrophils Percent Auto 58.8 % (45-73); Platelet Count 394 X10*3/uL (160-400); Red Blood Count 3.52 X10*6/uL (4.60-5.80); Red Cell Distribution Width 19.2 % (11.0-16.0); SCAN SMEAR FLAG 1; White Blood Count 26.5 X10*3/uL (4.8-10.8)
--- NOTE | 2020-05-17 09:43 | MHC.HEMONC ---
Pt here for lab draw. Port accessed and labs drawn. Pt asking for refill on MS Contin and Dilaudid. Dr Angeles notified, and prescription sent.
[2020-05-17 09:57] LABS: Alanine Aminotransferase 11 U/L (0-40); Alkaline Phosphatase 219 U/L (39-117); Anion Gap 17 (12-20); Aspartate Amino Transferase 16 U/L (5-37); Bilirubin Total 0.7 mg/dL (0.0-1.0); Blood Urea Nitrogen 13 mg/dL (9-16); Calcium 7.8 mg/dL (8.4-10.2); Carbon Dioxide 19 mmol/L (22-29); Chloride 107 mmol/L (96-108); Creatinine Clr Calc Pharmacy 47.5; Estimated Glomerular Filt Rate 52; Glucose Random 92 mg/dL (60-115); Potassium 4.3 mmol/l (3.3-5.1); Sodium 139 mmol/L (135-145); Total Protein 5.8 g/dL (6.5-8.0)
[2020-05-17 10:01] LABS: SLIDE REVIEW VERIFIED
[2020-05-23 09:01] VITALS: BMI 17.8
[2020-05-23 09:08] LABS: Hematocrit 31.1 % (42-52); Hemoglobin 9.3 g/dl (14.0-18.0); Mean Corpuscular HGB Conc 29.9 g/dl (31.0-36.0); Mean Corpuscular Hemoglobin 26.8 pg (27.0-33.0); Mean Corpuscular Volume 89.6 fL (80-98); Mean Platelet Volume 9.9 fL (9.4-12.4); Platelet Count 504 X10*3/uL (160-400); Red Blood Count 3.47 X10*6/uL (4.60-5.80); Red Cell Distribution Width 19.7 % (11.0-16.0)
[2020-05-23 09:16] LABS: WBC ABN SCTR FOR CBC 1
[2020-05-23 09:18] VITALS: BP 79/58; PULSE 99; RESP 18; TEMP 36.6; O2SAT 100
[2020-05-23 09:36] LABS: Alanine Aminotransferase 9 U/L (0-40); Albumin Level 2.8 g/dL (3.5-5.0); Alkaline Phosphatase 211 U/L (39-117); Anion Gap 15 (12-20); Aspartate Amino Transferase 16 U/L (5-37); Bilirubin Total 0.4 mg/dL (0.0-1.0); Blood Urea Nitrogen 17 mg/dL (9-16); Carbon Dioxide 22 mmol/L (22-29); Chloride 109 mmol/L (96-108); Creatinine Clr Calc Pharmacy 43.8; Estimated Glomerular Filt Rate 49; Glucose Random 101 mg/dL (60-115); Potassium 4.8 mmol/l (3.3-5.1); Sodium 141 mmol/L (135-145); Total Protein 5.7 g/dL (6.5-8.0)
[2020-05-23 09:43] LABS: Magnesium 1.5 mg/dL (1.6-2.6)
[2020-05-23 09:54] LABS: Band Neutrophils Percent 3 % (3-5); Basophils Percent Manual 1 % (0-1); Eosinophils Percent Manual 26 % (0-4); Lymphocytes Percent Manual 19 % (20-40); Monocytes Percent Manual 6 % (2-11); Neutrophils Percent Manual 45 % (45-73)
[2020-05-23 09:56] LABS: Burr Cells 2+; Pappenheimer Bodies PRESENT; RBC Morphology NOTED; Schistocytes 1+
[2020-05-23 09:57] LABS: Microcytosis 1+
[2020-05-23 09:58] LABS: Platelet Estimate SLIGHTLY INCREASED (NORMAL); Platelet Morphology Comment NORMAL
[2020-05-23 10:00] LABS: White Blood Count 25.2 X10*3/uL (4.8-10.8)
[2020-05-23] MEDS: 0.9 % Sodium Chloride 1,000 ML 500 ML IVCONT (10:21)
[2020-05-23 10:25] VITALS: BP 82/56
[2020-05-23 11:02] VITALS: BP 88/54
[2020-05-23 12:27] LABS: Neutrophils Absolute Manual 12.1 X10*3/uL (2.2-7.9)
--- NOTE | 2020-05-23 13:38 | MHC.HEMONC ---
Pt here for labs via port. He continues to lose weight despite reporting good appetite. He has no other specific c/o but his JAREN was running very low today SBP 75-88 all day. He was asymptomatic. He received one liter NS this morning and BP only improved 10 points or so. I reviewed med list with VNA. He is not taking any antihypertensives at this time. Dr Angeles added on some other testing like cortisol and will follow. Pt to return next week for Keytruda.
[2020-05-30 08:01] VITALS: BMI 17.8
[2020-05-30 08:18] VITALS: BP 69/51; PULSE 109; RESP 18; TEMP 36.4; O2SAT 98; BMI 18.1
[2020-05-30 08:21] VITALS: BP 80/48
[2020-05-30 08:47] LABS: Hematocrit 30.5 % (42-52); Hemoglobin 9.4 g/dl (14.0-18.0); Mean Corpuscular HGB Conc 30.8 g/dl (31.0-36.0); Mean Corpuscular Hemoglobin 27.6 pg (27.0-33.0); Mean Corpuscular Volume 89.7 fL (80-98); Mean Platelet Volume 10.4 fL (9.4-12.4); Platelet Count 619 X10*3/uL (160-400); Red Cell Distribution Width 18.9 % (11.0-16.0)
[2020-05-30 08:54] LABS: WBC ABN SCTR FOR CBC 1
[2020-05-30] MEDS: 0.9 % Sodium Chloride 1,000 ML 500 ML IVCONT (09:00)
[2020-05-30 09:15] LABS: Alanine Aminotransferase 8 U/L (0-40); Albumin Level 2.8 g/dL (3.5-5.0); Alkaline Phosphatase 236 U/L (39-117); Anion Gap 15 (12-20); Aspartate Amino Transferase 15 U/L (5-37); Bilirubin Total 0.6 mg/dL (0.0-1.0); Blood Urea Nitrogen 18 mg/dL (9-16); Calcium 7.9 mg/dL (8.4-10.2); Carbon Dioxide 22 mmol/L (22-29); Chloride 108 mmol/L (96-108); Creatinine Clr Calc Pharmacy 44.8; Estimated Glomerular Filt Rate 50; Glucose Fasting 105 mg/dL (60-99); Magnesium 1.5 mg/dL (1.6-2.6); Potassium 4.7 mmol/l (3.3-5.1); Sodium 140 mmol/L (135-145); Total Protein 5.5 g/dL (6.5-8.0)
[2020-05-30 09:35] LABS: Thyroid Stimulating Hormone 2.39 uIU/mL (0.32-4.0)
[2020-05-30 09:40] LABS: Band Neutrophils Percent 4 % (3-5); Basophils Percent Manual 1 % (0-1); Eosinophils Percent Manual 16 % (0-4); Lymphocytes Percent Manual 12 % (20-40); Monocytes Percent Manual 12 % (2-11); Neutrophils Percent Manual 55 % (45-73)
[2020-05-30 09:42] LABS: Burr Cells 3+
[2020-05-30 09:43] LABS: Platelet Estimate SLIGHTLY INCREASED (NORMAL); Platelet Morphology Comment NORMAL; RBC Morphology NOTED
[2020-05-30 09:44] LABS: Macrocytosis 1+; Schistocytes 1+
[2020-05-30 09:51] LABS: Pappenheimer Bodies PRESENT
[2020-05-30 09:56] LABS: Basophils Abs Manual 0.3 X10*3/uL (0.0-0.3); Eosinophils Absolute Manual 4.9 X10*3/UL (0.0-0.8); Lymphocytes Absolute Manual 3.7 X10*3/uL (0.6-4.8); Monocytes Absolute Manual 3.7 X10*3/uL (0.0-1.2); Neutrophils Absolute Manual 18.2 X10*3/uL (2.2-7.9); White Blood Count 30.9 X10*3/uL (4.8-10.8)
[2020-05-30] MEDS: Acetaminophen 325 MG TABLET 650 MG PO (10:02)
[2020-05-30 10:05] VITALS: BP 92/64
[2020-05-30] MEDS: diphenhydrAMINE HCL 25 MG TABLET 50 MG PO (10:38)
[2020-05-30 11:46] VITALS: BP 88/54
[2020-05-30] MEDS: Heparin Sodium,Porcine Flush 500 UNIT/5 ML SYRINGE IVFLUSH (11:49)
--- NOTE | 2020-05-30 15:04 | MHC.HEMONC ---
Pt here for KEYTRUDA. He has been doing fairly well but continues with low BP though not especially symptomatic. NS IV started while awaiting labs. Dr Angeles asked that I call Dr Smith his residency director which I did leave a message with his MA in [place]. Labs acceptable and pt told Dr Angeles he feels well enough for treatment. He was given Benadryl but only 25mg due to low BP as he continues to c/o itching. Dr Angeles is aware. Pt ge Keytruda and hydration. Return next week for labs.
[2020-06-07 08:32] VITALS: BP 92/46; PULSE 98; RESP 20; TEMP 36.3; O2SAT 99; BMI 17.9
--- NOTE | 2020-06-07 09:00 | MHC.HEMONC ---
Patient here for port draw. Labs drawn. Flushed as ordered. Follow-ups given.
[2020-06-07 09:03] LABS: Basophils Absolute Auto 0.4 X10*3/uL (0.0-0.2); Basophils Percent Auto 1.2 % (0-2); Eosinophils Absolute Auto 7.3 X10*3/uL (0.0-0.4); Eosinophils Percent Auto 19.3 % (0-4); Hematocrit 30.6 % (42-52); Hemoglobin 9.4 g/dl (14.0-18.0); Imm Gran Abs Auto 0.31 X10*3/uL (0.00-0.03); Imm Gran Pct Auto 0.8 % (0.0-0.4); Lymphocytes Absolute Auto 4.2 X10*3/uL (1.2-4.9); Lymphocytes Percent Auto 11.1 % (20-40); MANUAL DIFF FLAG SCAN; Mean Corpuscular HGB Conc 30.7 g/dl (31.0-36.0); Mean Corpuscular Hemoglobin 27.3 pg (27.0-33.0); Mean Platelet Volume 10.4 fL (9.4-12.4); Monocytes Absolute Auto 3.3 X10*3/uL (0.1-1.2); Monocytes Percent Auto 8.7 % (2-11); Neutrophils Absolute Auto 22.2 X10*3/uL (2.0-8.3); Neutrophils Percent Auto 58.9 % (45-73); Platelet Count 528 X10*3/uL (160-400); Red Blood Count 3.44 X10*6/uL (4.60-5.80); Red Cell Distribution Width 18.4 % (11.0-16.0); SCAN SMEAR FLAG 1
[2020-06-07 09:11] LABS: White Blood Count 37.7 X10*3/uL (4.8-10.8)
--- NOTE | 2020-06-07 09:13 | MHC.HEMONC ---
Critical of WBC 37.[address] [place] [address] Angeles notifed. No new ordered at this time.
[2020-06-07 09:35] LABS: Alanine Aminotransferase 6 U/L (0-40); Albumin Level 2.8 g/dL (3.5-5.0); Alkaline Phosphatase 304 U/L (39-117); Anion Gap 14 (12-20); Aspartate Amino Transferase 14 U/L (5-37); Bilirubin Total 0.4 mg/dL (0.0-1.0); Blood Urea Nitrogen 23 mg/dL (9-16); Calcium 7.8 mg/dL (8.4-10.2); Carbon Dioxide 23 mmol/L (22-29); Chloride 108 mmol/L (96-108); Creatinine Clr Calc Pharmacy 36.7; Estimated Glomerular Filt Rate 40; Glucose Random 87 mg/dL (60-115); Magnesium 1.7 mg/dL (1.6-2.6); Potassium 4.9 mmol/l (3.3-5.1); Sodium 140 mmol/L (135-145); Total Protein 5.8 g/dL (6.5-8.0)
[2020-06-07 09:39] LABS: SLIDE REVIEW VERIFIED
[2020-06-13 08:19] VITALS: BP 84/59; PULSE 96; RESP 18; TEMP 36.4; O2SAT 99; BMI 17.6
[2020-06-13 08:55] LABS: Hematocrit 30.2 % (42-52); Hemoglobin 9.2 g/dl (14.0-18.0); Mean Corpuscular HGB Conc 30.5 g/dl (31.0-36.0); Mean Corpuscular Hemoglobin 26.9 pg (27.0-33.0); Mean Corpuscular Volume 88.3 fL (80-98); Mean Platelet Volume 10.1 fL (9.4-12.4); Platelet Count 601 X10*3/uL (160-400); Red Blood Count 3.42 X10*6/uL (4.60-5.80); Red Cell Distribution Width 17.8 % (11.0-16.0)
[2020-06-13 09:01] LABS: White Blood Count 38.7 X10*3/uL (4.8-10.8)
[2020-06-13 09:21] LABS: Alanine Aminotransferase 8 U/L (0-40); Albumin Level 2.9 g/dL (3.5-5.0); Alkaline Phosphatase 352 U/L (39-117); Anion Gap 15 (12-20); Aspartate Amino Transferase 16 U/L (5-37); Bilirubin Total 0.6 mg/dL (0.0-1.0); Blood Urea Nitrogen 20 mg/dL (9-16); Calcium 7.7 mg/dL (8.4-10.2); Carbon Dioxide 21 mmol/L (22-29); Chloride 108 mmol/L (96-108); Creatinine Clr Calc Pharmacy 40.8; Estimated Glomerular Filt Rate 46; Glucose Random 78 mg/dL (60-115); Potassium 4.9 mmol/l (3.3-5.1); Sodium 139 mmol/L (135-145)
[2020-06-13 09:38] LABS: Atypical Lymph Absolute Manual 0.4 x10*3/uL; Atypical Lymphs Percent Manual 1 % (0-6); Band Neutrophils Percent 15 % (3-5); Basophils Abs Manual 0.4 X10*3/uL (0.0-0.3); Basophils Percent Manual 1 % (0-1); Eosinophils Absolute Manual 13.2 X10*3/UL (0.0-0.8); Eosinophils Percent Manual 34 % (0-4); Lymphocytes Absolute Manual 3.5 X10*3/uL (0.6-4.8); Lymphocytes Percent Manual 9 % (20-40); Metamyelocytes Absolute 0.4 X10*3/uL; Metamyelocytes Percent 1 %; Monocytes Absolute Manual 2.7 X10*3/uL (0.0-1.2); Monocytes Percent Manual 7 % (2-11); Neutrophils Absolute Manual 18.2 X10*3/uL (2.2-7.9); Neutrophils Percent Manual 32 % (45-73)
[2020-06-13 09:39] LABS: Platelet Estimate INCREASED (NORMAL); Platelet Morphology Comment NORMAL; Toxic Vacuolation PRESENT
--- NOTE | 2020-06-13 09:39 | MHC.HEMONC ---
pt attended to complex lab draw, port flushed with heparin. wbc increasing dr angeles aware. Nanette Rn Left secind requesting kidney doctor to call Dr Angeles back for plan of care. bp low but has been baseline. pain med refilled and sent to pharm
[2020-06-13 09:41] LABS: Acanthocytes 1+; Hypochromasia 1+; RBC Morphology NOTED; Schistocytes 1+; Target Cells 1+
[2020-06-13 09:42] LABS: Burr Cells 1+
--- NOTE | 2020-06-13 09:48 | MHC.HEMONC ---
Called Dr Smith office again as he never returned Dr Angeles's call last week. I left message on [facility] phone saying it was urgent that Dr Smith call Dr Angeles re: pt ongoing issue with low BP.
[2020-06-20 07:55] VITALS: BP 82/53; PULSE 103; RESP 18; TEMP 37.2; O2SAT 99; BMI 17.4
[2020-06-20 08:41] LABS: Hematocrit 29.6 % (42-52); Mean Corpuscular HGB Conc 30.4 g/dl (31.0-36.0); Mean Corpuscular Hemoglobin 26.8 pg (27.0-33.0); Mean Corpuscular Volume 88.1 fL (80-98); Mean Platelet Volume 10.1 fL (9.4-12.4); Platelet Count 607 X10*3/uL (160-400); Red Blood Count 3.36 X10*6/uL (4.60-5.80); Red Cell Distribution Width 17.9 % (11.0-16.0)
[2020-06-20 08:46] LABS: WBC ABN SCTR FOR CBC 1
[2020-06-20 08:51] LABS: White Blood Count 38.1 X10*3/uL (4.8-10.8)
[2020-06-20 09:03] LABS: Alanine Aminotransferase 7 U/L (0-40); Albumin Level 2.9 g/dL (3.5-5.0); Alkaline Phosphatase 363 U/L (39-117); Anion Gap 13 (12-20); Aspartate Amino Transferase 15 U/L (5-37); Bilirubin Total 0.4 mg/dL (0.0-1.0); Blood Urea Nitrogen 20 mg/dL (9-16); Carbon Dioxide 21 mmol/L (22-29); Chloride 110 mmol/L (96-108); Creatinine Clr Calc Pharmacy 38.3; Estimated Glomerular Filt Rate 43; Glucose Random 83 mg/dL (60-115); Potassium 5.1 mmol/L (3.3-5.1); Sodium 139 mmol/L (135-145); Total Protein 5.9 g/dL (6.5-8.0)
[2020-06-20 09:13] LABS: Band Neutrophils Percent 7 % (3-5); Basophils Abs Manual 1.1 X10*3/uL (0.0-0.3); Basophils Percent Manual 3 % (0-1); Eosinophils Absolute Manual 11.4 X10*3/UL (0.0-0.8); Eosinophils Percent Manual 30 % (0-4); Lymphocytes Absolute Manual 3.4 X10*3/uL (0.6-4.8); Lymphocytes Percent Manual 9 % (20-40); Monocytes Absolute Manual 3.4 X10*3/uL (0.0-1.2); Monocytes Percent Manual 9 % (2-11); Neutrophils Absolute Manual 18.7 X10*3/uL (2.2-7.9); Neutrophils Percent Manual 42 % (45-73)
[2020-06-20 09:14] LABS: RBC Morphology NOTED
[2020-06-20 09:15] LABS: Hypochromasia 1+
[2020-06-20 09:16] LABS: Burr Cells 2+; Schistocytes 2+
[2020-06-20 09:18] LABS: Ovalocytes 1+
[2020-06-20 09:20] LABS: Acanthocytes 1+
[2020-06-20 09:21] LABS: Platelet Estimate INCREASED (NORMAL); Platelet Morphology Comment NORMAL
[2020-06-20 09:22] LABS: Howell Jolly Bodies PRESENT
[2020-06-20 09:23] LABS: Spherocytes 1+
[2020-06-20] MEDS: Acetaminophen 325 MG TABLET 650 MG PO (09:54)
[2020-06-20] MEDS: diphenhydrAMINE HCL 25 MG TABLET PO (09:54)
[2020-06-20] MEDS: Heparin Sodium,Porcine Flush 500 UNIT/5 ML SYRINGE IVFLUSH (11:08)
--- NOTE | 2020-06-20 12:03 | MHC.HEMONC ---
Addendum entered by Milka Mcarthur RN 06/20/20 12:07: WBC 38.08, Dr Angeles aware. Bp also low, but has been his baseline. Offers no c/o Original Note: Pt here for chemo infusion. States he is feeling better today than he did last week. Port accessed, labs drawn and reviewed. Chemo infusion done and pt tolerated well. Scheduled to return in 1 week for labs.
[2020-06-27 08:24] VITALS: BMI 17.5
[2020-06-27 08:29] VITALS: BP 76/48; PULSE 95; RESP 16; TEMP 36.9; O2SAT 100
[2020-06-27] MEDS: 0.9 % Sodium Chloride 1,000 ML 500 ML IVCONT (08:35)
[2020-06-27 08:51] LABS: Hematocrit 28.8 % (42-52); Mean Corpuscular HGB Conc 31.3 g/dl (31.0-36.0); Mean Corpuscular Hemoglobin 26.7 pg (27.0-33.0); Mean Corpuscular Volume 85.5 fL (80-98); Mean Platelet Volume 10.3 fL (9.4-12.4); Platelet Count 666 X10*3/uL (160-400); Red Blood Count 3.37 X10*6/uL (4.60-5.80); Red Cell Distribution Width 17.4 % (11.0-16.0)
[2020-06-27 08:56] LABS: WBC ABN SCTR FOR CBC 1
[2020-06-27 08:57] LABS: White Blood Count 46.9 X10*3/uL (4.8-10.8)
[2020-06-27 09:22] LABS: Atypical Lymph Absolute Manual 0.5 x10*3/uL; Atypical Lymphs Percent Manual 1 % (0-6); Band Neutrophils Percent 18 % (3-5); Basophils Abs Manual 0.5 X10*3/uL (0.0-0.3); Basophils Percent Manual 1 % (0-1); Eosinophils Absolute Manual 12.2 X10*3/UL (0.0-0.8); Eosinophils Percent Manual 26 % (0-4); Lymphocytes Absolute Manual 3.8 X10*3/uL (0.6-4.8); Lymphocytes Percent Manual 8 % (20-40); Metamyelocytes Absolute 0.5 X10*3/uL; Metamyelocytes Percent 1 %; Monocytes Absolute Manual 0.5 X10*3/uL (0.0-1.2); Monocytes Percent Manual 1 % (2-11); Neutrophils Absolute Manual 29.1 X10*3/uL (2.2-7.9); Neutrophils Percent Manual 44 % (45-73)
[2020-06-27 09:24] LABS: Hypochromasia 1+; Platelet Estimate INCREASED (NORMAL); Platelet Morphology Comment NORMAL; RBC Morphology NOTED
[2020-06-27 09:27] LABS: Acanthocytes 1+; Alanine Aminotransferase 8 U/L (0-40); Albumin Level 2.9 g/dL (3.5-5.0); Alkaline Phosphatase 396 U/L (39-117); Anion Gap 13 (12-20); Aspartate Amino Transferase 14 U/L (5-37); Bilirubin Total 0.5 mg/dL (0.0-1.0); Blood Urea Nitrogen 22 mg/dL (9-16); Calcium 8.5 mg/dL (8.4-10.2); Carbon Dioxide 23 mmol/L (22-29); Chloride 106 mmol/L (96-108); Creatinine Clr Calc Pharmacy 37.7; Estimated Glomerular Filt Rate 42; Glucose Random 111 mg/dL (60-115); Potassium 4.5 mmol/L (3.3-5.1); Sodium 137 mmol/L (135-145); Total Protein 6.2 g/dL (6.5-8.0); Toxic Vacuolation PRESENT
[2020-06-27 09:28] LABS: Howell Jolly Bodies PRESENT; Schistocytes 1+
[2020-06-27 09:58] LABS: Toxic Vacuolation PRESENT
[2020-06-27 10:43] VITALS: BP 98/54; PULSE 83
--- NOTE | 2020-06-27 11:31 | MHC.HEMONC ---
Pt here with very low Bp per his his recent baseline. His weight is low but stable. He is eating. Labs reviewed by Dr Angeles. His WBC is higher and so he had leukemia testing drawn. Dr Angeles ordered IVF and his BP came up. She also called Dr Lawson to see him urgently today. He went over after his appt here. He will return next week for labs.
[2020-07-05 08:40] VITALS: BP 160/59; PULSE 98; RESP 18; TEMP 36.5; O2SAT 95; BMI 17.1
[2020-07-05 09:24] LABS: Hematocrit 28.8 % (42-52); Hemoglobin 8.7 g/dl (14.0-18.0); Mean Corpuscular HGB Conc 30.2 g/dl (31.0-36.0); Mean Corpuscular Hemoglobin 25.8 pg (27.0-33.0); Mean Corpuscular Volume 85.5 fL (80-98); Mean Platelet Volume 10.6 fL (9.4-12.4); Platelet Count 663 X10*3/uL (160-400); Red Blood Count 3.37 X10*6/uL (4.60-5.80); Red Cell Distribution Width 17.2 % (11.0-16.0)
[2020-07-05 09:31] LABS: White Blood Count 49.2 X10*3/uL (4.8-10.8)
--- NOTE | 2020-07-05 10:02 | MHC.HEMONC ---
Pt here for lab work and port flush. WBC 49.[address] Angeles-no new orders. BP 160/59 pt taking midodrine 2.5mg BID. Karthik Osborn notified of BP. Pt instructed to follow up with Dr MELENDEZ regarding elevated BP per Dr Angeles. Dr Melendez's office number given to pt.Next appointment next week.
[2020-07-05 10:06] LABS: Alanine Aminotransferase 11 U/L (0-40); Alkaline Phosphatase 418 U/L (39-117); Anion Gap 15 (12-20); Aspartate Amino Transferase 16 U/L (5-37); Bilirubin Total 0.6 mg/dL (0.0-1.0); Blood Urea Nitrogen 28 mg/dL (9-16); Calcium 8.7 mg/dL (8.4-10.2); Carbon Dioxide 22 mmol/L (22-29); Chloride 105 mmol/L (96-108); Creatinine Clr Calc Pharmacy 32.5; Estimated Glomerular Filt Rate 37; Glucose Random 89 mg/dL (60-115); Potassium 5.2 mmol/L (3.3-5.1); Sodium 137 mmol/L (135-145); Total Protein 6.2 g/dL (6.5-8.0)
[2020-07-05 10:20] LABS: Band Neutrophils Percent 11 % (3-5); Eosinophils Absolute Manual 15.7 X10*3/UL (0.0-0.8); Eosinophils Percent Manual 32 % (0-4); Lymphocytes Absolute Manual 5.4 X10*3/uL (0.6-4.8); Lymphocytes Percent Manual 11 % (20-40); Monocytes Absolute Manual 2.5 X10*3/uL (0.0-1.2); Monocytes Percent Manual 5 % (2-11); Neutrophils Absolute Manual 25.6 X10*3/uL (2.2-7.9); Neutrophils Percent Manual 41 % (45-73)
[2020-07-05 10:21] LABS: Platelet Estimate INCREASED (NORMAL); Platelet Morphology Comment NORMAL
[2020-07-05 10:22] LABS: RBC Morphology NOTED; Toxic Vacuolation PRESENT
[2020-07-05 10:23] LABS: Acanthocytes 1+; Schistocytes 1+; Tear Drop Cells 1+
[2020-07-05 10:24] LABS: Target Cells 1+
[2020-07-05 10:39] LABS: Howell Jolly Bodies PRESENT
[2020-07-11 08:10] VITALS: BP 80/52; PULSE 96; RESP 18; TEMP 36.4; O2SAT 100; BMI 17.5
[2020-07-11 08:34] LABS: Hematocrit 28.2 % (42-52); Hemoglobin 8.8 g/dl (14.0-18.0); Mean Corpuscular HGB Conc 31.2 g/dl (31.0-36.0); Mean Corpuscular Hemoglobin 26.1 pg (27.0-33.0); Mean Corpuscular Volume 83.7 fL (80-98); Mean Platelet Volume 10.3 fL (9.4-12.4); Platelet Count 589 X10*3/uL (160-400); Red Blood Count 3.37 X10*6/uL (4.60-5.80); Red Cell Distribution Width 16.5 % (11.0-16.0)
[2020-07-11 08:37] LABS: White Blood Count 48.8 X10*3/uL (4.8-10.8)
[2020-07-11 09:07] LABS: Band Neutrophils Percent 18 % (3-5); Basophils Abs Manual 0.5 X10*3/uL (0.0-0.3); Basophils Percent Manual 1 % (0-1); Eosinophils Absolute Manual 15.1 X10*3/UL (0.0-0.8); Eosinophils Percent Manual 31 % (0-4); Lymphocytes Absolute Manual 3.9 X10*3/uL (0.6-4.8); Lymphocytes Percent Manual 8 % (20-40); Monocytes Absolute Manual 1.5 X10*3/uL (0.0-1.2); Monocytes Percent Manual 3 % (2-11); Neutrophils Absolute Manual 27.8 X10*3/uL (2.2-7.9); Neutrophils Percent Manual 39 % (45-73)
[2020-07-11 09:11] LABS: Acanthocytes 1+; Ovalocytes 1+; RBC Morphology NOTED; Schistocytes 1+
[2020-07-11 09:12] LABS: Howell Jolly Bodies PRESENT; Spherocytes 1+; Target Cells 1+
[2020-07-11 09:13] LABS: Burr Cells 1+; Hypochromasia 1+
[2020-07-11 09:14] LABS: Platelet Estimate INCREASED (NORMAL); Platelet Morphology Comment NORMAL
[2020-07-11 09:30] LABS: Alanine Aminotransferase 11 U/L (0-40); Albumin Level 3.2 g/dL (3.5-5.0); Alkaline Phosphatase 479 U/L (39-117); Anion Gap 17 (12-20); Aspartate Amino Transferase 15 U/L (5-37); Bilirubin Total 0.5 mg/dL (0.0-1.0); Blood Urea Nitrogen 29 mg/dL (9-16); Calcium 8.4 mg/dL (8.4-10.2); Carbon Dioxide 19 mmol/L (22-29); Chloride 107 mmol/L (96-108); Creatinine Clr Calc Pharmacy 29.8; Estimated Glomerular Filt Rate 32; Glucose Random 82 mg/dL (60-115); Sodium 138 mmol/L (135-145); Total Protein 6.4 g/dL (6.5-8.0)
[2020-07-11] MEDS: Acetaminophen 325 MG TABLET 650 MG PO (10:09)
[2020-07-11] MEDS: diphenhydrAMINE HCL 25 MG TABLET PO (10:09)
[2020-07-11] MEDS: Heparin Sodium,Porcine Flush 500 UNIT/5 ML SYRINGE IVFLUSH (11:34)
[2020-07-18 08:34] VITALS: BP 67/45; PULSE 91; RESP 17; TEMP 36.8; O2SAT 98; BMI 17.0
[2020-07-18 09:00] LABS: Hematocrit 27.8 % (42-52); Hemoglobin 8.7 g/dl (14.0-18.0); Mean Corpuscular HGB Conc 31.3 g/dl (31.0-36.0); Mean Corpuscular Hemoglobin 26.3 pg (27.0-33.0); Mean Platelet Volume 10.4 fL (9.4-12.4); Platelet Count 546 X10*3/uL (160-400); Red Blood Count 3.31 X10*6/uL (4.60-5.80); Red Cell Distribution Width 16.5 % (11.0-16.0)
[2020-07-18 09:02] LABS: WBC ABN SCTR FOR CBC 1
[2020-07-18] MEDS: 0.9 % Sodium Chloride 1,000 ML 500 ML IVCONT (09:02)
[2020-07-18 09:04] LABS: White Blood Count 47.3 X10*3/uL (4.8-10.8)
[2020-07-18 09:25] LABS: Alanine Aminotransferase 7 U/L (0-40); Albumin Level 3.1 g/dL (3.5-5.0); Alkaline Phosphatase 499 U/L (39-117); Anion Gap 16 (12-20); Aspartate Amino Transferase 13 U/L (5-37); Bilirubin Total 0.5 mg/dL (0.0-1.0); Blood Urea Nitrogen 35 mg/dL (9-16); Calcium 8.6 mg/dL (8.4-10.2); Carbon Dioxide 19 mmol/L (22-29); Chloride 110 mmol/L (96-108); Creatinine Clr Calc Pharmacy 25.9; Estimated Glomerular Filt Rate 28; Glucose Random 82 mg/dL (60-115); Potassium 5.2 mmol/L (3.3-5.1); Sodium 140 mmol/L (135-145); Total Protein 6.3 g/dL (6.5-8.0)
[2020-07-18 09:26] VITALS: BP 75/48; PULSE 79; O2SAT 100
[2020-07-18 11:01] LABS: Atypical Lymph Absolute Manual 0.5 x10*3/uL; Atypical Lymphs Percent Manual 1 % (0-6); Band Neutrophils Percent 20 % (3-5); Basophils Abs Manual 0.5 X10*3/uL (0.0-0.3); Basophils Percent Manual 1 % (0-1); Eosinophils Absolute Manual 9.9 X10*3/UL (0.0-0.8); Eosinophils Percent Manual 21 % (0-4); Lymphocytes Percent Manual 17 % (20-40); Metamyelocytes Absolute 0.5 X10*3/uL; Metamyelocytes Percent 1 %; Monocytes Absolute Manual 1.9 X10*3/uL (0.0-1.2); Monocytes Percent Manual 4 % (2-11); Neutrophils Percent Manual 35 % (45-73)
[2020-07-18 11:02] LABS: RBC Morphology NORMAL
[2020-07-18 11:03] LABS: Hypochromasia 1+; Target Cells 1+
[2020-07-18 11:04] LABS: Acanthocytes 2+; Schistocytes 1+
[2020-07-18 11:05] LABS: Platelet Estimate INCREASED (NORMAL); Platelet Morphology Comment NORMAL
--- NOTE | 2020-07-18 15:45 | MHC.HEMONC ---
Addendum entered by Trini Dunham RN 07/18/20 15:53: Lab results reviewed by Dr Angeles Original Note: Pt here for lab draw. Port accessed without difficulty. Lab specimen sent to lab. Bp 67/[address] Angeles into see pt. Plan for one liter of IV fluids. BP 75/48 after 500ML of IV fluids reported to Dr Angeles. Pt states he feels weak and fatigued. Dr Angeles aware-plan to have pt seen in ED. Pt agreeable. BP 84/50 after one liter of fluids. Port remains accessed per Dr Angeles's request.Pt to ED via . Report given to nurse HOLLOWAY.
[2020-07-25 08:11] VITALS: BP 70/45; PULSE 74; RESP 14; TEMP 36.4; O2SAT 100; BMI 15.6
[2020-07-25 08:41] VITALS: BP 70/40; PULSE 66
[2020-07-25] MEDS: Midodrine HCl 5 MG TABLET PO (08:41)
[2020-07-25] MEDS: 0.9 % Sodium Chloride 1,000 ML 500 ML IVCONT (08:45)
[2020-07-25 09:01] LABS: Hemoglobin 8.8 g/dl (14.0-18.0); PLT CLUMP 1
[2020-07-25 09:03] LABS: Hematocrit 28.7 % (42-52); Mean Corpuscular HGB Conc 30.7 g/dl (31.0-36.0); Mean Corpuscular Hemoglobin 25.8 pg (27.0-33.0); Mean Corpuscular Volume 84.2 fL (80-98); Mean Platelet Volume 11.1 fL (9.4-12.4); Platelet Count 465 X10*3/uL (160-400); Red Blood Count 3.41 X10*6/uL (4.60-5.80); Red Cell Distribution Width 16.6 % (11.0-16.0)
[2020-07-25 09:09] LABS: WBC ABN SCTR FOR CBC 1
[2020-07-25 09:10] LABS: White Blood Count 46.4 X10*3/uL (4.8-10.8)
[2020-07-25 09:23] LABS: Band Neutrophils Percent 12 % (3-5); Basophils Abs Manual 0.5 X10*3/uL (0.0-0.3); Basophils Percent Manual 1 % (0-1); Eosinophils Absolute Manual 16.2 X10*3/UL (0.0-0.8); Eosinophils Percent Manual 35 % (0-4); Lymphocytes Absolute Manual 5.1 X10*3/uL (0.6-4.8); Lymphocytes Percent Manual 11 % (20-40); Monocytes Absolute Manual 1.4 X10*3/uL (0.0-1.2); Monocytes Percent Manual 3 % (2-11); Neutrophils Absolute Manual 23.2 X10*3/uL (2.2-7.9); Neutrophils Percent Manual 38 % (45-73)
[2020-07-25 09:25] LABS: Platelet Estimate INCREASED (NORMAL); Platelet Morphology Comment NORMAL; RBC Morphology NOTED; Toxic Vacuolation PRESENT
[2020-07-25 09:26] LABS: Acanthocytes 1+; Burr Cells 1+; Schistocytes 1+
[2020-07-25 09:27] LABS: Target Cells 1+
[2020-07-25 09:34] LABS: Alanine Aminotransferase 6 U/L (0-40); Albumin Level 3.1 g/dL (3.5-5.0); Alkaline Phosphatase 505 U/L (39-117); Anion Gap 18 (12-20); Aspartate Amino Transferase 14 U/L (5-37); Bilirubin Total 0.4 mg/dL (0.0-1.0); Blood Urea Nitrogen 40 mg/dL (9-16); Calcium 8.7 mg/dL (8.4-10.2); Carbon Dioxide 18 mmol/L (22-29); Chloride 112 mmol/L (96-108); Estimated Glomerular Filt Rate 23; Glucose Random 61 mg/dL (60-115); Potassium 5.5 mmol/L (3.3-5.1); Sodium 142 mmol/L (135-145); Total Protein 6.3 g/dL (6.5-8.0)
[2020-07-25 10:10] VITALS: BP 79/49; PULSE 58
[2020-07-25 10:50] VITALS: BP 79/49; PULSE 58
[2020-07-25 11:13] VITALS: BP 77/48; PULSE 61
--- NOTE | 2020-07-25 11:15 | MHC.HEMONC ---
Addendum entered by Trini Dunham RN 07/25/20 11:21: 5mg of midodrine orally given for BP 70/[address] Angeles order Original Note: Pt here for lab draw and IV hydration. Port accessed easily, labs drawn from port and sent to lab. 1000ml 0.9% IV started. BP on arrival 70/[address] Angeles. BP rechecked at 1010 79/49 p-58, 1100 BP 77/48 P-61. Lab results reviewed. Pt declines going to ED for hypotension-states he was there last week.Next appointment booked. Port flushed with heparin and de-accessed. Discharged home
--- NOTE | 2020-07-25 15:20 | MHC.HEMONCSW ---
PATIENT RECEIVED IV HYDRATION, REPORTS STILL NOT FEELING WELL. DOES NOT WANT TO TALK LONG HE IS TIRED. [facility] AND [employer] CONTINUE. SUPPORT AND NOURISHMENT PROVIDED.
[2020-08-01 08:18] VITALS: BP 113/55; PULSE 99; RESP 18; TEMP 36.3; O2SAT 97; BMI 16.5
[2020-08-01 08:46] LABS: Hematocrit 30.7 % (42-52); Hemoglobin 9.4 g/dl (14.0-18.0); Mean Corpuscular HGB Conc 30.6 g/dl (31.0-36.0); Mean Corpuscular Hemoglobin 25.8 pg (27.0-33.0); Mean Corpuscular Volume 84.1 fL (80-98); Mean Platelet Volume 11.6 fL (9.4-12.4); Platelet Count 415 X10*3/uL (160-400); Red Blood Count 3.65 X10*6/uL (4.60-5.80); Red Cell Distribution Width 16.7 % (11.0-16.0)
[2020-08-01 09:00] LABS: White Blood Count 49.1 X10*3/uL (4.8-10.8)
[2020-08-01 09:16] LABS: Alanine Aminotransferase 8 U/L (0-40); Albumin Level 3.1 g/dL (3.5-5.0); Alkaline Phosphatase 532 U/L (39-117); Anion Gap 16 (12-20); Aspartate Amino Transferase 15 U/L (5-37); Bilirubin Total 0.7 mg/dL (0.0-1.0); Blood Urea Nitrogen 33 mg/dL (9-16); Calcium 9.2 mg/dL (8.4-10.2); Carbon Dioxide 19 mmol/L (22-29); Chloride 111 mmol/L (96-108); Creatinine Clr Calc Pharmacy 24.9; Estimated Glomerular Filt Rate 28; Glucose Random 76 mg/dL (60-115); Potassium 5.3 mmol/L (3.3-5.1); Sodium 141 mmol/L (135-145); Total Protein 6.5 g/dL (6.5-8.0)
[2020-08-01 10:02] LABS: Band Neutrophils Percent 8 % (3-5); Basophils Percent Manual 2 % (0-1); Eosinophils Absolute Manual 16.2 X10*3/UL (0.0-0.8); Eosinophils Percent Manual 33 % (0-4); Lymphocytes Absolute Manual 4.4 X10*3/uL (0.6-4.8); Lymphocytes Percent Manual 9 % (20-40); Monocytes Percent Manual 2 % (2-11); Neutrophils Absolute Manual 26.5 X10*3/uL (2.2-7.9); Neutrophils Percent Manual 46 % (45-73); Smudge Cells PRESENT; Toxic Vacuolation PRESENT
[2020-08-01 10:06] LABS: Burr Cells 2+; Schistocytes 2+; Target Cells 1+
[2020-08-01] MEDS: Acetaminophen 325 MG TABLET 650 MG PO (10:06)
[2020-08-01 10:07] LABS: Hypochromasia 1+; Polychromasia 1+
[2020-08-01] MEDS: diphenhydrAMINE HCL 25 MG TABLET PO (10:07)
[2020-08-01 10:08] LABS: Platelet Estimate SLIGHTLY INCREASED (NORMAL); Platelet Morphology Comment NORMAL; RBC Morphology NOTED
--- NOTE | 2020-08-01 10:33 | HE.PHANOTE ---
PATIENT'S LAST TSH WAS 05/30/20; MIGHT WANT TO CONSIDER DRAWING ANOTHER BEFORE NEXT TREATMENT
[2020-08-01] MEDS: Heparin Sodium,Porcine Flush 500 UNIT/5 ML SYRINGE IVFLUSH (11:32)
--- NOTE | 2020-08-01 13:53 | MHC.HEMONC ---
Pt here for cycle 8 day 1 Pembrolizumab IV. Port accessed and labs drawn from port. Specimen sent to lab. Lab results reviewed. WBC 49.1 Dr Angeles notified. premedicated with 8mg of zofran orally, 650mg tylenol orally and 25mg benadryl orally. Tolerated Pembrolizumab IV. Follow up appointments made. Pt declined print out for appointments. Port flushed with heparin and de-accessed.
--- NOTE | 2020-08-01 15:48 | MHC.HEMONCSW ---
PATIENT HERE FOR TREATMENT. DOES NOT FEEL OR LOOK WELL. HAS LOST WEIGHT, STATES HE IS EATING THOUGH. IRRITABLE BUT APPROACHABLE. DISCUSSED HIS HEALTH SITUATION. REFUSES COUNSELING REFERRAL. REASSURANCE, GUIDANCE, EDUCATION AND SUPPORT PROVIDED.
--- NOTE | 2020-08-05 11:23 | MHC.HEMONC ---
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 She is attempting to reach Dr Smith re: pt blood pressure being chronically low and how he plans to manage.
[2020-08-08 08:12] VITALS: BP 72/51; PULSE 118; RESP 14; TEMP 36.4; O2SAT 97; BMI 16.3
[2020-08-08 08:32] LABS: Hemoglobin 9.3 g/dl (14.0-18.0); Mean Corpuscular Hemoglobin 25.5 pg (27.0-33.0); PLT CLUMP 1; Red Blood Count 3.65 X10*6/uL (4.60-5.80)
[2020-08-08 08:34] LABS: Hematocrit 29.5 % (42-52); Mean Corpuscular HGB Conc 31.5 g/dl (31.0-36.0); Mean Corpuscular Volume 80.8 fL (80-98); Mean Platelet Volume 10.9 fL (9.4-12.4); Platelet Count 418 X10*3/uL (160-400); Red Cell Distribution Width 17.2 % (11.0-16.0)
[2020-08-08 08:36] LABS: WBC ABN SCTR FOR CBC 1
[2020-08-08 08:39] LABS: White Blood Count 51.1 X10*3/uL (4.8-10.8)
[2020-08-08 09:18] LABS: Alkaline Phosphatase 540 U/L (39-117); Anion Gap 16 (12-20); Bilirubin Total 0.3 mg/dL (0.0-1.0); Blood Urea Nitrogen 36 mg/dL (9-16); Carbon Dioxide 21 mmol/L (22-29); Chloride 107 mmol/L (96-108); Creatinine Clr Calc Pharmacy 21.2; Estimated Glomerular Filt Rate 24; Glucose Random 76 mg/dL (60-115); Sodium 139 mmol/L (135-145); Total Protein 6.4 g/dL (6.5-8.0)
[2020-08-08 09:33] LABS: Alanine Aminotransferase < 6 U/L (0-40); Aspartate Amino Transferase 15 U/L (5-37); Calcium 9.9 mg/dL (8.4-10.2)
[2020-08-08] MEDS: 0.9 % Sodium Chloride 1,000 ML 500 ML IV (10:00)
[2020-08-08 10:59] LABS: Band Neutrophils Percent 12 % (3-5); Eosinophils Absolute Manual 15.3 X10*3/UL (0.0-0.8); Eosinophils Percent Manual 30 % (0-4); Lymphocytes Absolute Manual 4.1 X10*3/uL (0.6-4.8); Lymphocytes Percent Manual 8 % (20-40); Monocytes Absolute Manual 1.5 X10*3/uL (0.0-1.2); Monocytes Percent Manual 3 % (2-11); Neutrophils Absolute Manual 30.1 X10*3/uL (2.2-7.9); Neutrophils Percent Manual 47 % (45-73); RBC Morphology NOTED
[2020-08-08 11:04] LABS: Schistocytes 1+ (0-2) /OIF
[2020-08-08 11:06] LABS: Acanthocytes 3+ (>5) /OIF; Platelet Estimate INCREASED (NORMAL); Platelet Morphology Comment NORMAL; Target Cells 1+ (5-14) /OIF; Toxic Vacuolation PRESENT
[2020-08-15 08:32] VITALS: BP 85/53; PULSE 97; RESP 17; TEMP 36.5; O2SAT 98; BMI 16.5
[2020-08-15 09:00] LABS: Hemoglobin 9.3 g/dl (14.0-18.0); Mean Corpuscular Volume 80.6 fL (80-98); Mean Platelet Volume 11.4 fL (9.4-12.4); Platelet Count 374 X10*3/uL (160-400); Red Blood Count 3.72 X10*6/uL (4.60-5.80); Red Cell Distribution Width 17.2 % (11.0-16.0)
[2020-08-15 09:07] LABS: White Blood Count 45.5 X10*3/uL (4.8-10.8)
[2020-08-15] MEDS: 0.9 % Sodium Chloride 1,000 ML 999 ML IV (09:30)
[2020-08-15 09:37] LABS: Alanine Aminotransferase 7 U/L (0-40); Albumin Level 2.9 g/dL (3.5-5.0); Alkaline Phosphatase 600 U/L (39-117); Anion Gap 16 (12-20); Aspartate Amino Transferase 16 U/L (5-37); Bilirubin Total 0.6 mg/dL (0.0-1.0); Blood Urea Nitrogen 37 mg/dL (9-16); Calcium 10.5 mg/dL (8.4-10.2); Carbon Dioxide 20 mmol/L (22-29); Chloride 108 mmol/L (96-108); Creatinine Clr Calc Pharmacy 22.9; Estimated Glomerular Filt Rate 26; Glucose Random 80 mg/dL (60-115); Potassium 4.8 mmol/L (3.3-5.1); Sodium 139 mmol/L (135-145); Total Protein 6.3 g/dL (6.5-8.0)
--- NOTE | 2020-08-15 09:38 | MHC.HEMONCSW ---
PATIENT IS HERE FOR HYDRATION. DISCUSSED INABILITY TO KEEP WEIGHT STABLE ALTHOUGH REPORTS GOOD PO INTAKE. HIS LICENSED LAND SURVEYOR REMAINS AT 28.5 HOURS PER WEEK. ADAMANTLY REFUSES OFFER OF ENSURE SUPPLEMENTS....DOSEN'T LIKE THEM. SUPPORTIVE COUNSELING AND SUPPORT PROVIDED.
[2020-08-15 10:09] LABS: Atypical Lymph Absolute Manual 0.5 x10*3/uL; Atypical Lymphs Percent Manual 1 % (0-6); Band Neutrophils Percent 14 % (3-5); Basophils Abs Manual 0.9 X10*3/uL (0.0-0.3); Basophils Percent Manual 2 % (0-1); Eosinophils Absolute Manual 17.3 X10*3/UL (0.0-0.8); Eosinophils Percent Manual 38 % (0-4); Lymphocytes Absolute Manual 1.4 X10*3/uL (0.6-4.8); Lymphocytes Percent Manual 3 % (20-40); Monocytes Absolute Manual 3.6 X10*3/uL (0.0-1.2); Monocytes Percent Manual 8 % (2-11); Neutrophils Absolute Manual 21.8 X10*3/uL (2.2-7.9); Neutrophils Percent Manual 34 % (45-73)
[2020-08-15 10:11] LABS: Acanthocytes 1+ (0-2) /OIF; Burr Cells 3+ (>5) /OIF; Microcytosis 1+ (5-14) /OIF; Platelet Estimate NORMAL (NORMAL); Platelet Morphology Comment NORMAL; RBC Morphology NOTED
--- NOTE | 2020-08-15 11:17 | MHC.HEMONC ---
Pt here for lab draw. Port accessed without difficulty. Labs drawn from port and sent to lab. 0.9% NS infusing via port. Labs and vital signs reviewed. Follow up appointment made and discharge packet given to patient. Port flushed with heparin and de accessed.
--- NOTE | 2020-08-19 08:37 | MHC.HEMONC ---
Dr Angeles had me call pt Ambar GARCIA to say that she is OK with Leonard receiving Covid vaccine.
--- NOTE | 2020-08-22 08:15 | P.PNHO_ITS ---
Medical Summary - Medical Summary Date of Service: 08/22/20 Chief complaint: Follow-up for: Non-small cell lung cancer. 2. Myelofibrosis. Medical Summary: DIAGNOSES: 1. Myelofibrosis. 2. History of lupus anticoagulant positivity. 3. Transient ischemic attack, 2007, with left hemiparesis; now resolved. 4. Pancreatitis, he had repeated episodes; now resolved. 5. 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 CURRENT THERAPY: 1. 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 2. Coumadin 5 mg. daily. INR from February 26, 2.7. 3. Carboplatin/Alimta, started 02/10. Completed cycle 3. 4. On Nivolumab, started April. Completed 32 treatments, September 07. Treatment number 40 on December 27. currently on pembrolizumab, here for cycle 9. Interval History Interval history: This is a pleasant 59-year-old gentleman, here for a follow-up visit. He does not feel too well. he feels rather fatigued. His blood pressure was noted to be low. 77 systolic. He is supposed to be on 5 mg 3 times a day. His blood pressure was low last week at home as well. He was advised to go to the ER but he declined. He tells me he took 2.5 mg of Midrodin, this morning. He denies chest pain or trouble breathing. No abdominal pain nausea or vomiting. His bowels are working without any gross blood in it. His appetite is not that good. He has lost weight. His spirits are down. Rest of the review of systems is unremarkable Previous History: Patient was in house between December 27 and the for acute on chronic panc reatitis. On admission patient CT scan showed:Pancreatitis with peripancreatic fluid collections as described. Since 11/09/2019, there is new extension of a cyst/fluid from the lesser sac into the caudate lobe measuring 6.6 x 5.3 x 5.4 cm. Subsequently he was given IV fluid, pain management, bowel rest. He initially responded well and started eating. Subsequently he started having fever, Tmax 101*6F and become hypotensive. Patient required aggressive fluid resuscitation, initially received Levaquin and then subsequently changed to Zosyn as per ID. Patient was being followed by GI doctor wilton and ID Dr reynoso: Due to above incidence SIRS/hypotension: Thought to have question of pancreatic cyst infection or abscess. Case was discussed with the GI in [facility] as well as hospitalist service- patient. The concern was that patient would require EUS guided drainage. He was subsequently transferred to [facility]. He was [facility] because of hypotension, resuscitated with IV fluids, Zosyn was started. GI and ID were consulted. MRI of the abdomen 01/02 showed multiple peripancreatic pseudocysts containing debris insinuating in to caudate lobe of the liver, along lesser curvature of stomach and left subdiaphragmatic region, mildly increased from prior study. Agnieszka hepatis/caudate collection measures up to 7.4 cm previously 7.2 cm. Super infection not excluded. 1.8 cm hyperintense nonenhancing lesion within segment 7 right hepatic lobe, mildly increased in both size and T2 hyperintensity compared to November 2019. This finding was previously described as a treated metastasis and may now be complicated by pseudocyst formation. Smaller cystic lesions scattered throughout the pancreas, similar to prior study and again likely representing additional pseudocysts, dilated side branch ducts, non neoplastic cyst or side-branch intraductal papillary mucinous neoplasm. Diffuse mesenteric edema with trace perihepatic ascites. He underwent endoscopic ultrasound 01/05 the unfortunately location of the collections prevented endoscopic drain placement. GI recommended IR guided drainage because of the proximity to esophagus. IR also recommended not amenable to IR guided drainage. GI advised against laparoscopic drainage because of guarded surgical outcome with his comorbidity and to try conservative management with IV antibiotics. Fortunately patient responded well to antibiotic therapy and completed 2 weeks course of IV Zosyn as suggested by ID. He remained afebrile. Leukocytosis trended down. Encephalopathy: Acute confusion 01/09 likely related to sepsis. [employer] imaging without new finding except many old lacunes. Last visit: He complains of abdominal pain in the periumbilical area. His taste is altered. He has nausea and dry heaves. it happens 4 to 5 times a day. His Zofran has not been delivered from the pharmacy, yet. No heartburn or indigestion. His bowels are working without any gross blood in it. Review of Systems - Constitutional Reports no additional constitutional complaints, Reports lack of energy, Reports malaise, Reports weight loss - Eyes Reports no additional eye complaints - ENT Reports no additional ear, nose, mouth, and throat complaints - Cardiovascular Reports no additional cardiovascular complaints - Respiratory Reports no additional respiratory complaints - Gastrointestinal Reports no additional gastrointestinal complaints - Genitourinary Genitourinary: Reports no additional male genitourinary complaints - Musculoskeletal Reports no additional musculoskeletal complaints - Integumentary/Breasts Skin/Breast: Reports no additional skin complaints - Neurologic Reports no additional neurologic complaints, Reports dizziness, Denies lack of coordination, Denies focal weakness - Psychiatric Reports no additional psychiatric complaints - Endocrine Reports no additional endocrine complaints - Hematologic/Lymphatic Reports no additional hematologic/lymphatic complaints - Allergic/Immunologic Reports no additional allergic/immunologic complaints [facility] Medical History: Medical History (Last Updated 08/22/20 @ 08:57 by Leda Rowland [facility]) BPH (benign prostatic hyperplasia) Chronic kidney disease Chronic pancreatitis Compression fracture of L1 lumbar vertebra COPD (chronic obstructive pulmonary disease) CVA (cerebral vascular accident) Gout Hypercholesterolemia Hypertension Lumbar degenerative disc disease Lupus anticoagulant disorder Myelofibrosis Non-small cell carcinoma of lung metastatic to abdomen Orthostatic hypotension Pancreatic pseudocyst Paraneoplastic pemphigus Peripheral vascular disease Polycythemia vera TIA (transient ischemic attack) Tobacco abuse Type 2 diabetes mellitus with hyperglycemia Ventral hernia Functional capacity: uses cane/walker Patient : No Surgical History: Surgical History (Last Reviewed 07/20/20 @ 11:03 by Sarah Lemus PT) Elbow fracture, right H/O hernia repair H/O splenectomy H/O stem cell transplant History of kyphoplasty S/P herniorrhaphy Social History: Social History (Last Reviewed 07/18/20 @ 16:29 by Boris Appiah MD) Living Situation History: Household Members: None Housing: Apartment Alcohol History: Alcohol intake: never Advance Directives: Advance Directives: No Advance Directives Information Provided: No Nutrition Assessment: Patient : No Occupation Assessmet: service: Yes Current occupational status: disabled Home Medications and Allergies Current Medications: Current Medications Generic Name Dose Route Start Last Admin Trade Name Freq PRN Reason Stop Dose Admin Acetaminophen 650 mg 08/22/20 00:00 Acetaminophen 325 Mg Tablet PO 08/22/20 23:59 ONCE QUINTON Diphenhydramine HCl 25 mg 08/22/20 00:00 Diphenhydramine Hcl 25 Mg Tablet PO 08/22/20 23:59 ONCE QUINTON Heparin Sodium (Porcine) 500 unit 08/22/20 00:00 Heparin Sodium,Porcine Flush 500 Unit/5 Ml Syringe IVFLUSH 08/22/20 23:59 ONCE QUINTON Ondansetron HCl 8 mg 08/22/20 00:00 Ondansetron Odt 8 Mg Tab.Rapdis TRANSLINGU 08/22/20 23:59 ONCE QUINTON Home Medications Medication Instructions Recorded Confirmed Type Creon 1 cap PO TID 03/28/20 07/18/20 History mycophenolate mofetil [CellCept] 500 mg PO DAILY 03/28/20 07/18/20 History fluticasone propion-salmeterol 1 puff INHALATION BID 05/09/20 07/18/20 History doxycycline hyclate 100 mg PO DAILY 07/11/20 07/18/20 History diphenhydramine-acetaminophen 1 tab PO BEDTIME PRN 07/18/20 07/18/20 History fluocinonide 1 appl TOPICAL BID 07/18/20 07/18/20 History omeprazole 20 mg PO DAILY@0630 07/18/20 07/18/20 History ondansetron HCl [Zofran] 8 mg PO Q8H PRN 07/18/20 07/18/20 History tamsulosin 0.4 mg PO DAILY@1700 07/18/20 07/18/20 History midodrine 5 mg PO TID 08/16/20 08/16/20 History Allergies Allergy/AdvReac Type Severity Reaction Status Date / Time oxycodone [OXYCODONE] Allergy Unknown VOMITING, Verified 04/29/20 13:54 nausea and vomiting Exam Vital signs: Vital Signs Temp 97.7 F 08/15/20 08:32 Pulse 97 08/15/20 08:32 Resp 17 08/15/20 08:32 BP 85/53 L 08/15/20 08:32 Pulse Ox 98 08/15/20 08:32 Weight 53.8 kg Body Mass Index 16.5 - Constitutional Present: mild distress - Routine HEENT Exam Head: Present: normal inspection Eye: Present: normal appearance ENT: Present: mucous membranes moist - Routine Neck Exam Present: full ROM - Routine Respiratory Exam Present: CTAB - Routine Cardiovascular Exam Cardiovascular: Present: RRR, S1, S2 - Routine Abdominal Exam Present: hyperactive bowel sounds, soft, nontender - Routine Extremities Exam Present: nontender - Routine Back/Spine/Pelvis Exam Back/Spine: Present: full ROM - Routine Skin Exam Present: intact - Routine Neurological Exam Present: alert, oriented X3 - Routine Psychiatric Exam Present: normal affect, anxious Data - Labs CBC & Chem 7: 08/22/20 08:39 08/22/20 08:39 Labs: 03/08/20 00:00 Heparin Sodium,Porcine Flush 500 unit IVFLUSH ONCE Pembrolizumab [Keytruda] 200 mg 0.9 % Sodium Chloride [Ns] 50 ml IV ONCE ondansetron HCL/NS [Zofran] 16 mg in 50 ml IV ONCE 03/08/20 08:33 diphenhydrAMINE HCL [Benadryl] 25 mg IVPUSH ONCE ONE 03/08/20 08:34 Acetaminophen [Tylenol] 650 mg PO ONCE ONE 03/08/20 09:50 Complete Blood Count Auto Diff Routine Comprehensive Met. Panel Routine Creatine Kinase Total Routine Magnesium Routine 03/08/20 12:02 Magnesium Sulfate/H2O 2 gm in 50 ml IV ONCE 03/28/20 00:00 Acetaminophen [Tylenol] 650 mg PO ONCE Heparin Sodium,Porcine Flush 500 unit IVFLUSH ONCE Pembrolizumab [Keytruda] 200 mg 0.9 % Sodium Chloride [Ns] 50 ml IV ONCE diphenhydrAMINE HCL [Benadryl] 25 mg PO ONCE ondansetron HCL/NS [Zofran] 16 mg in 50 ml IV ONCE 03/28/20 09:30 CMP [Comprehensive Met. Panel] Routine Complete Blood Count Man Dif Routine Magnesium Routine Thyroid Stimulating Hormone Routine 03/28/20 09:38 Add Laboratory Test Routine Add Laboratory Test Routine 03/28/20 10:30 Magnesium Sulfate/H2O 2 gm in 50 ml IV ONCE 03/28/20 11:30 0.9 % Sodium Chloride [Ns] 500 ml IVCONT 250 mls/hr 03/28/20 12:16 Omeprazole [PriLOSEC] 20 mg PO ONCE ONE 03/28/20 17:00 0.9 % Sodium Chloride [Ns] 1,000 ml IVCONT 500 mls/hr 04/04/20 00:00 Denosumab [Xgeva] 120 mg SUBCUT ONCE 04/04/20 09:30 CMP [Comprehensive Met. Panel] Routine Complete Blood Count Auto Diff Routine 0.9 % Sodium Chloride [Ns] 1,000 ml IVCONT 500 mls/hr 04/04/20 11:09 ondansetron ODT [Zofran ODT] 8 mg TRANSLINGU ONCE ONE 04/04/20 11:45 ondansetron HCL/NS [Zofran] 16 mg in 50 ml IV ONCE 04/04/20 12:49 Flu Vacc [id number](6mos up)/PF [Fluarix Quad ] 0.5 ml IM .ONCE ONE 04/04/20 13:01 Heparin Sodium,Porcine Flush 500 unit 0.9 % Sodium Chloride Flush [NS Flush] 5 ml IVFLUSH ONCE 04/04/20 13:17 Heparin Sodium,Porcine Flush 500 unit IVFLUSH .STK-MED ONE 04/11/20 09:20 Complete Blood Count Auto Diff Routine Comprehensive Met. Panel Routine 04/11/20 10:55 Pneumoc 13-Radha Conj-Dip Crm/PF [Prevnar 13] 0.5 ml IM .ONCE ONE 04/11/20 12:45 Heparin Sodium,Porcine Flush 500 unit 0.9 % Sodium Chloride Flush [NS Flush] 5 ml IVFLUSH ONCE 04/11/20 12:49 Heparin Sodium,Porcine Flush 500 unit IVFLUSH .STK-MED ONE 05/02/20 08:50 CMP [Comprehensive Met. Panel] Routine Complete Blood Count Man Dif Routine Magnesium Routine 05/02/20 09:26 Add Laboratory Test Routine 05/02/20 09:52 Magnesium Sulfate/H2O 2 gm in 50 ml IV ONCE 05/02/20 11:43 Heparin Sodium,Porcine Flush 500 unit 0.9 % Sodium Chloride Flush [NS Flush] 5 ml IVFLUSH ONCE 05/02/20 11:59 Heparin Sodium,Porcine Flush 500 unit IVFLUSH .STK-MED ONE 05/09/20 00:00 Acetaminophen [Tylenol] 650 mg PO ONCE Heparin Sodium,Porcine Flush 500 unit IVFLUSH ONCE Pembrolizumab [Keytruda] 200 mg 0.9 % Sodium Chloride [Ns] 50 ml IV ONCE ondansetron ODT [Zofran ODT] 8 mg TRANSLINGU ONCE 05/09/20 09:05 Complete Blood Count Man Dif Routine Comprehensive Met. Panel Routine Magnesium Routine 05/09/20 10:36 Magnesium Sulfate/D5W 1 gm in 100 ml IV ONCE 05/09/20 11:39 Magnesium Hydrox/Alum Hydrox [Maalox] 30 ml PO ONCE ONE 05/09/20 11:45 0.9 % Sodium Chloride [Ns] 500 ml IV 500 mls/hr 05/17/20 09:10 CMP [Comprehensive Met. Panel] Routine Complete Blood Count Auto Diff Routine SLIDE REVIEW Routine 05/23/20 08:59 CMP [Comprehensive Met. Panel] Routine Complete Blood Count Man Dif Routine Cortisol Routine Magnesium Routine 05/23/20 09:31 Add Laboratory Test Routine 05/23/20 11:15 0.9 % Sodium Chloride [Ns] 1,000 ml IVCONT 500 mls/hr 05/23/20 11:16 Heparin Sodium,Porcine Flush 500 unit 0.9 % Sodium Chloride Flush [NS Flush] 5 ml IVFLUSH ONCE 05/23/20 12:19 Heparin Sodium,Porcine Flush 500 unit IVFLUSH .STK-MED ONE 05/30/20 00:00 Acetaminophen [Tylenol] 650 mg PO ONCE Heparin Sodium,Porcine Flush 500 unit IVFLUSH ONCE Pembrolizumab [Keytruda] 200 mg 0.9 % Sodium Chloride [Ns] 50 ml IV ONCE ondansetron ODT [Zofran ODT] 8 mg TRANSLINGU ONCE 05/30/20 08:30 CMP [Comprehensive [place]man. Panel Fast] Routine Complete Blood Count Man Dif Routine Magnesium Routine Thyroid Stimulating Hormone Routine 05/30/20 10:08 diphenhydrAMINE HCL [Benadryl] 50 mg PO ONCE ONE 05/30/20 10:15 0.9 % Sodium Chloride [Ns] 1,000 ml IVCONT 500 mls/hr 06/06/20 08:07 Heparin Sodium,Porcine Flush 500 unit 0.9 % Sodium Chloride Flush [NS Flush] 5 ml IVFLUSH ONCE 06/07/20 08:08 Heparin Sodium,Porcine Flush 500 unit 0.9 % Sodium Chloride Flush [NS Flush] 5 ml IVFLUSH ONCE 06/07/20 08:26 Heparin Sodium,Porcine Flush 500 unit IVFLUSH .STK-MED ONE 06/07/20 08:45 CMP [Comprehensive Met. Panel] Routine Complete Blood Count Auto Diff Routine Magnesium Routine SLIDE REVIEW Routine 06/13/20 08:40 CMP [Comprehensive Met. Panel] Routine Complete Blood Count Man Dif Routine 06/13/20 09:16 Heparin Sodium,Porcine Flush 500 unit 0.9 % Sodium Chloride Flush [NS Flush] 5 ml IVFLUSH ONCE 06/13/20 09:26 Heparin Sodium,Porcine Flush 500 unit IVFLUSH .STK-MED ONE 06/20/20 00:00 Acetaminophen [Tylenol] 650 mg PO ONCE Heparin Sodium,Porcine Flush 500 unit IVFLUSH ONCE Pembrolizumab [Keytruda] 200 mg 0.9 % Sodium Chloride [Ns] 50 ml IV ONCE diphenhydrAMINE HCL [Benadryl] 25 mg PO ONCE ondansetron ODT [Zofran ODT] 8 mg TRANSLINGU ONCE 06/20/20 08:25 CMP [Comprehensive Met. Panel] Routine Complete Blood Count Man Dif Routine 06/27/20 08:35 CMP [Comprehensive Met. Panel] Routine Complete Blood Count Man Dif Routine 06/27/20 08:52 Heparin Sodium,Porcine Flush 500 unit 0.9 % Sodium Chloride Flush [NS Flush] 5 ml IVFLUSH ONCE 06/27/20 09:00 0.9 % Sodium Chloride [Ns] 1,000 ml IVCONT 500 mls/hr 06/27/20 10:53 Heparin Sodium,Porcine Flush 500 unit IVFLUSH .STK-MED ONE 06/27/20 11:10 Leukemia/Lymphoma Eval. Blood Routine 07/05/20 08:50 CMP [Comprehensive Met. Panel] Routine Complete Blood Count Man Dif Routine 07/05/20 09:39 Heparin Sodium,Porcine Flush 500 unit 0.9 % Sodium Chloride Flush [NS Flush] 5 ml IVFLUSH ONCE 07/05/20 09:44 Heparin Sodium,Porcine Flush 500 unit IVFLUSH .STK-MED ONE 07/11/20 00:00 Acetaminophen [Tylenol] 650 mg PO ONCE Heparin Sodium,Porcine Flush 500 unit IVFLUSH ONCE Pembrolizumab [Keytruda] 200 mg 0.9 % Sodium Chloride [Ns] 50 ml IV ONCE diphenhydrAMINE HCL [Benadryl] 25 mg PO ONCE ondansetron ODT [Zofran ODT] 8 mg TRANSLINGU ONCE 07/11/20 08:20 CMP [Comprehensive Met. Panel] Routine Complete Blood Count Man Dif Routine 07/11/20 08:45 0.9 % Sodium Chloride [Ns] 1,000 ml IVCONT 500 mls/hr 07/18/20 08:07 Heparin Sodium,Porcine Flush 500 unit 0.9 % Sodium Chloride Flush [NS Flush] 5 ml IVFLUSH ONCE 07/18/20 08:45 CMP [Comprehensive Met. Panel] Routine Complete Blood Count Man Dif Routine 07/18/20 08:52 Heparin Sodium,Porcine Flush 500 unit IVFLUSH .STK-MED ONE 07/18/20 09:00 0.9 % Sodium Chloride [Ns] 1,000 ml IVCONT 500 mls/hr 07/25/20 08:19 Midodrine HCl [ProAmatine] 5 mg PO ONCE ONE 07/25/20 08:30 0.9 % Sodium Chloride [Ns] 1,000 ml IVCONT 500 mls/hr 07/25/20 08:45 CMP [Comprehensive Met. Panel] Routine Complete Blood Count Man Dif Routine 07/25/20 10:51 Heparin Sodium,Porcine Flush 500 unit 0.9 % Sodium Chloride Flush [NS Flush] 5 m l IVFLUSH ONCE 07/25/20 10:55 Heparin Sodium,Porcine Flush 500 unit IVFLUSH .STK-MED ONE 08/01/20 00:00 Acetaminophen [Tylenol] 650 mg PO ONCE Heparin Sodium,Porcine Flush 500 unit IVFLUSH ONCE Pembrolizumab [Keytruda] 200 mg 0.9 % Sodium Chloride [Ns] 50 ml IV ONCE diphenhydrAMINE HCL [Benadryl] 25 mg PO ONCE ondansetron ODT [Zofran ODT] 8 mg TRANSLINGU ONCE 08/01/20 08:20 Complete Blood Count Man Dif Routine Comprehensive Met. Panel Routine 08/08/20 08:02 Heparin Sodium,Porcine Flush 500 unit 0.9 % Sodium Chloride Flush [NS Flush] 5 ml IVFLUSH ONCE 08/08/20 08:07 Heparin Sodium,Porcine Flush 500 unit IVFLUSH .STK-MED ONE 08/08/20 08:24 CMP [Comprehensive Met. Panel] Routine Complete Blood Count Man Dif Routine 08/08/20 10:00 0.9 % Sodium Chloride [Ns] 1,000 ml IV 500 mls/hr 08/15/20 08:25 CMP [Comprehensive Met. Panel] Routine Complete Blood Count Man Dif Routine 08/15/20 10:15 0.9 % Sodium Chloride [Ns] 500 ml IV 999 mls/hr 08/15/20 10:22 Heparin Sodium,Porcine Flush 500 unit 0.9 % Sodium Chloride Flush [NS Flush] 5 ml IVFLUSH ONCE 08/15/20 10:27 Heparin Sodium,Porcine Flush 500 unit IVFLUSH .STK-MED ONE 08/15/20 10:45 0.9 % Sodium Chloride [Ns] 1,000 ml IV 999 mls/hr Laboratory Last Values WBC 45.5 X10*3/uL (4.8-10.8) H* 08/15/20 08:25 RBC 3.72 X10*6/uL (4.60-5.80) L 08/15/20 08:25 Hgb 9.3 g/dl (14.0-18.0) L 08/15/20 08:25 Hct 30.0 % (42-52) L 08/15/20 08:25 MCV 80.6 fL (80-98) 08/15/20 08:25 MCH 25.0 pg (27.0-33.0) L 08/15/20 08:25 MCHC 31.0 g/dl (31.0-36.0) 08/15/20 08:25 RDW 17.2 % (11.0-16.0) H 08/15/20 08:25 Plt Count 374 X10*3/uL (160-400) 08/15/20 08:25 MPV 11.4 fL (9.4-12.4) 08/15/20 08:25 Immature Gran % (Auto) Cancelled 08/15/20 08:25 Neut % (Auto) Cancelled 08/15/20 08:25 Lymph % (Auto) Cancelled 08/15/20 08:25 [place] % (Auto) Cancelled 08/15/20 08:25 Eos % (Auto) Cancelled 08/15/20 08:25 Baso % (Auto) Cancelled 08/15/20 08:25 Lymph # (Auto) Cancelled 08/15/20 08:25 [place] # (Auto) Cancelled 08/15/20 08:25 Eos # (Auto) Cancelled 08/15/20 08:25 Baso # (Auto) Cancelled 08/15/20 08:25 Abs Immat Gran (auto) Cancelled 08/15/20 08:25 Absolute Neuts (auto) Cancelled 08/15/20 08:25 Absolute Nucleated RBC 0.000 X10*3/uL (0.0-0.012) 08/15/20 08:25 Nucleated RBC % (auto) 0.0 /100WBC (0.0-0.2) 08/15/20 08:25 Neutrophils % (Manual) 34 % (45-73) L 08/15/20 08:25 Band Neutrophils % 14 % (3-5) H 08/15/20 08:25 Lymphocytes % (Manual) 3 % (20-40) L 08/15/20 08:25 Atypical Lymphs % (Man) 1 % (0-6) 08/15/20 08:25 Monocytes % (Manual) 8 % (2-11) 08/15/20 08:25 Eosinophils % (Manual) 38 % (0-4) H 08/15/20 08:25 Basophils % (Manual) 2 % (0-1) H 08/15/20 08:25 Metamyelocytes % 1 % 07/18/20 08:45 Abs Neuts (Manual) 21.8 X10*3/uL (2.2-7.9) H 08/15/20 08:25 Lymphocytes # (Manual) 1.4 X10*3/uL (0.6-4.8) 08/15/20 08:25 Atyp Lymphs # (Manual) 0.5 x10*3/uL 08/15/20 08:25 Monocytes # (Manual) 3.6 X10*3/uL (0.0-1.2) H 08/15/20 08:25 Eosinophils # (Manual) 17.3 X10*3/UL (0.0-0.8) H 08/15/20 08:25 Basophils # (Manual) 0.9 X10*3/uL (0.0-0.3) H 08/15/20 08:25 Metamyelocytes # 0.5 X10*3/uL 07/18/20 08:45 Nucleated RBCs 1 /100WBC (0-0) H 03/28/20 09:30 Smudge Cells PRESENT 08/01/20 08:20 Toxic Vacuolation PRESENT 08/08/20 08:24 Jessica Rods EMERGENCY DEPARTMENT TECHNICIAN 06/20/20 08:25 Platelet Estimate NORMAL (NORMAL) 08/15/20 08:25 Large Platelets PRESENT 05/09/20 09:05 Plt Morphology Comment NORMAL 08/15/20 08:25 RBC Morphology NOTED 08/15/20 08:25 Polychromasia 1+ 08/01/20 08:20 Hypochromasia 1+ 08/01/20 08:20 Basophilic Stippling 1+ 05/02/20 08:50 Microcytosis 1+ (5-14) /OIF 08/15/20 08:25 Macrocytosis 1+ 05/30/20 08:30 Spherocytes 1+ 07/11/20 08:20 Pappenheimer Bodies PRESENT 05/30/20 08:30 Target Cells 1+ (5-14) /OIF 08/08/20 08:24 Tear Drop Cells 1+ 07/05/20 08:50 Ovalocytes 1+ 07/11/20 08:20 [place] Bodies PRESENT 07/11/20 08:20 [place] Cells 3+ (>5) /OIF 08/15/20 08:25 Acanthocytes (Spur) 1+ (0-2) /OIF 08/15/20 08:25 Schistocytes 1+ (0-2) /OIF 08/08/20 08:24 Smear Tech's Comments VERIFIED 06/07/20 08:45 Sodium 139 mmol/L (135-145) 08/15/20 08:25 Potassium 4.8 mmol/L (3.3-5.1) 08/15/20 08:25 Chloride 108 mmol/L (96-108) 08/15/20 08:25 Carbon Dioxide 20 mmol/L (22-29) L 08/15/20 08:25 Anion Gap 16 (12-20) 08/15/20 08:25 BUN 37 mg/dL (9-16) H 08/15/20 08:25 Creatinine 2.57 mg/dL (0.5-1.4) H 08/15/20 08:25 Estim Creat Clear Calc 22.9 08/15/20 08:25 Estimated GFR 26 08/15/20 08:25 Random Glucose 80 mg/dL (60-115) 08/15/20 08:25 Fasting Glucose 105 mg/dL (60-99) H 05/30/20 08:30 Calcium 10.5 mg/dL (8.4-10.2) H D 08/15/20 08:25 Magnesium Cancelled 07/18/20 08:45 Total Bilirubin 0.6 mg/dL (0.0-1.0) 08/15/20 08:25 AST 16 U/L (5-37) 08/15/20 08:25 ALT 7 U/L (0-40) 08/15/20 08:25 Alkaline Phosphatase 600 U/L (39-117) H 08/15/20 08:25 Total Creatine Kinase 11 U/L (38-174) L 03/08/20 09:50 Total Protein 6.3 g/dL (6.5-8.0) L 08/15/20 08:25 Albumin 2.9 g/dL (3.5-5.0) L 08/15/20 08:25 TSH 2.39 uIU/mL (0.32-4.0) 05/30/20 08:30 Cortisol 7.8 mcg/dL 05/23/20 08:59 Leuk/Lym Interpretation See Note 06/27/20 11:10 Progress Note: A/P (1) Non-small cell carcinoma of lung metastatic to abdomen Problem details: Liver biopsy December 2017 Status: Inactive Assessment and plan: 59-year-old gentleman with history of: Adenocarcinoma of the Lung, diagnosed with Liver Metastases, 01/04: Pathology: Poorly differentiated Adenocarcinoma of Lung Origin. The EGFR, ALK and PDL-1 mutation, negative. He received 4 cycles of chemotherapy with carboplatin, pemetrexed, 04/14/2018. He had disease progression. He has been on Nivolumab, started in April 28 2018. His TSH is low. He had a restaging PET scan on October 30 which revealed: 1.There has been complete metabolic response to therapy of FDG avid lingular and left pleural-based lesions present on the prior PET CT scan dated 01/09/2018. A residual spiculated nodule in the lingula persists, but is significantly smaller when compared to both the prior PET CT scan and the more recent diagnostic CT scan dated 04/18/2018. 2. There has been complete metabolic response to therapy of two previously present intensely FDG avid liver lesions. Some residual hypodensities are present at these sites on the CT images, but these show no abnormal FDG activity. 3. There has been complete resolution on both the FDG PET and CT images of an FDG avid lesion passing through the left 10th interspace posterolaterally. 4. No additional or new abnormalities suspicious for metastatic or other malignant lesions are noted. He did stabilize. He is on a prednisone taper. Back in October, he was in house for pancreatitis/pseudocyst and bacteremia. He still has some residual issues. At his last visit a couple of months ago he was rather hypotensive. He was admitted. He required transferred to [facility]. Both GI and IR did not feel they could attempt to drain the infected pseudocysts. He was given 2 weeks of IV Zosyn. With that he improved. He is now in the process of recuperating. His Most recent CT scan revealed: 1. Irregular opacity/mass in the inferior left upper lobe/lingula is not sig nificantly changed since the previous PET/CT of 10/30/2018. This is the site of known malignancy. The finding has significantly decreased in size compared to previous CTs of 2018. 2. Changes of emphysema. 3. A few subcentimeter noncalcified right upper lobe subpleural lung nodules are stable since the previous chest CT of 04/18/2018. 4. Improving pancreatic and peripancreatic fluid collections. 5. Multiple new rim enhancing liver lesions; differential possibilities include metastases versus hepatic abscesses. The appearance of multiple new liver lesions seen on the current CT is similar to that the liver lesions seen on the CT scan of 12/03/2017 the left hepatic lobe lesion seen on the CT scan of 12/03/2017 is not seen on the current examination. Hepatic metastases are favored given the appearance of the lesions similar to the previous studies and interval improvement of the pancreatic/peripancreatic infectious/inflammatory process in the upper abdomen. Disease progression, with progressive liver metastases. As such I have elected to change his therapy. He was started on pembrolizumab, couple of weeks ago. His PDL1 was 30%. Details of the regimen including potential side effects of hypersensitivity reactions, skin rash, shortness of breath, risk of immune related reactions, pancytopenia, risk of infections, need for antibiotic blood transfusions as well as growth factors were all Addressed with him. He understood and was started on the treatment. He completed cycle 8. He came in here to receive cycle 9 today. However his kidney function is off. Creatinine today was 3.6. He does have CKD however this is much above his baseline. PLAN: The pembrolizumab had to be held today. He was given IV hydration. He was given 2.5 mg of Midrodine. He was advised to continue taking 5 mg 3 times a day as recommended. He was given IV Zofran for nausea. Decadron 12 mg IV. He will start prednisone 40 mg daily from tomorrow. Hopefully that will help his renal function. He will return next week for labs and hydration. Will restart Keytruda once kidney function is acceptable. Thank you, CC: Dr. Lawson. (2) Myelofibrosis Status: Acute Assessment and plan: 59 year-old gentleman, with history of: 1. Polycythemia Vera: It transformed into Myelofibrosis. He was on phlebotomies for several years, initially. 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 He has done extremely well, from that perspective and remains in remission. 2. He has had a mild chronic Leukocytosis, that could partly be related to smoking. - Time Spent With Patient Total time spent is greater than 50% in coordination of care (as documented) at patient's floor/unit and/or counseling patient: 25 - 35 minutes
[2020-08-22 08:24] VITALS: BP 77/52; PULSE 117; RESP 18; TEMP 36.4; O2SAT 98; BMI 15.7
[2020-08-22 09:15] LABS: Hematocrit 31.8 % (42-52); Hemoglobin 9.9 g/dl (14.0-18.0); Mean Corpuscular HGB Conc 31.1 g/dl (31.0-36.0); Mean Corpuscular Hemoglobin 25.3 pg (27.0-33.0); Mean Corpuscular Volume 81.1 fL (80-98); Mean Platelet Volume 11.6 fL (9.4-12.4); Platelet Count 391 X10*3/uL (160-400); Red Blood Count 3.92 X10*6/uL (4.60-5.80)
[2020-08-22] MEDS: ondansetron HCL/NS 16 MG/50 ML PIGGYBACK 200 MG IV (09:27)
[2020-08-22 09:41] LABS: Alanine Aminotransferase 7 U/L (0-40); Alkaline Phosphatase 560 U/L (39-117); Anion Gap 17 (12-20); Aspartate Amino Transferase 13 U/L (5-37); Band Neutrophils Percent 14 % (3-5); Bilirubin Total 0.5 mg/dL (0.0-1.0); Blood Urea Nitrogen 42 mg/dL (9-16); Carbon Dioxide 20 mmol/L (22-29); Chloride 109 mmol/L (96-108); Creatinine Clr Calc Pharmacy 15.6; Eosinophils Absolute Manual 13.4 X10*3/UL (0.0-0.8); Eosinophils Percent Manual 32 % (0-4); Estimated Glomerular Filt Rate 17; Glucose Random 80 mg/dL (60-115); Lymphocytes Absolute Manual 4.2 X10*3/uL (0.6-4.8); Lymphocytes Percent Manual 10 % (20-40); Monocytes Absolute Manual 2.1 X10*3/uL (0.0-1.2); Monocytes Percent Manual 5 % (2-11); Neutrophils Absolute Manual 22.3 X10*3/uL (2.2-7.9); Neutrophils Percent Manual 39 % (45-73); Potassium 4.9 mmol/L (3.3-5.1); Sodium 141 mmol/L (135-145); Total Protein 6.5 g/dL (6.5-8.0)
[2020-08-22 09:44] LABS: Acanthocytes 1+ (0-2) /OIF; Burr Cells 3+ (>5) /OIF; Microcytosis 1+ (5-14) /OIF; Platelet Estimate NORMAL (NORMAL); Platelet Morphology Comment L; RBC Morphology NOTED; Toxic Vacuolation PRESENT
[2020-08-22 09:45] LABS: Target Cells 1+ (5-14) /OIF
[2020-08-22 09:55] LABS: Thyroid Stimulating Hormone 4.87 uIU/mL (0.32-4.0)
[2020-08-22 10:13] VITALS: BP 77/51
[2020-08-22] MEDS: Acetaminophen 325 MG TABLET 650 MG PO (10:13)
[2020-08-22] MEDS: diphenhydrAMINE HCL 25 MG TABLET PO (10:13)
[2020-08-22] MEDS: Midodrine HCl 2.5 MG TABLET PO (10:13)
[2020-08-22] MEDS: Heparin Sodium,Porcine Flush 500 UNIT/5 ML SYRINGE IVFLUSH (10:15)
--- NOTE | 2020-08-22 10:46 | HE.PHANOTE ---
SPOKE TO DR. SHIPLEY ABOUT INCREASED SCR; 3.6 TODAY WHICH IS ~2.5 X BASELINE FROM 08/2019. COMPLICATED CASE SINCE PT ALSO HAS CKD. SINCE HE HAS GRADE 2 SCR [facility] RECOMMENDED HOLDING KEYTRUDA AND TREAT W/ STEROIDS PER UPTODATE FOR POTENTIAL IMMUNE-MEDIATED NEPHRITIS
--- NOTE | 2020-08-22 10:56 | MHC.HEMONC ---
cycle 9 held today for cr 3.60, first dose prednisone given now, script sent to pharm. pt report only taking 2.5mg of midodrine bp 77/52 another 2.5mg given while here. dr hendrickson spoke to pt. IV zofran given for vomiting.
--- NOTE | 2020-08-22 11:18 | MHC.HEMONC ---
Addendum entered by Adilene Barnard RN 08/22/20 11:31: iv zofran given for vomiting. pt report only taking 2.5mg of midodrine another 2.5mg given here. I called pt pharm to confirm midodrine dose pt should take 5mg TID Original Note: cycle 9 chemo tx held today for CR 3.60, prednisone script sent to pharm. premeditations given the discion to hold chemo was made after the fact.
[2020-08-22] MEDS: 0.9 % Sodium Chloride 1,000 ML 500 ML IVCONT (11:24)
--- NOTE | 2020-08-22 16:39 | MHC.HEMONCSW ---
PATIENT IS DECLINING. ALERT, RESIDES ALONE, FEELS WEAK AND REPORTS NOT COPING WELL. 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 ADAMANTLY REFUSES TO DO A MOLST... I WANT TO LIVE REASSURANCE, GUIDANCE, EDUCATION AND SUPPORT PROVIDED. PATIENT IS AWARE OF MY AVAILABILITY.
--- NOTE | 2020-08-24 15:26 | MHC.HEMONC ---
new destination coordinator (carepartner) at [facility] is ROSA Casiano.
--- NOTE | 2020-08-26 07:19 | HE.ONCSEC ---
08/24/20-Patient's debit and [employer] card were left on my desk with a note from environmental services that it was found outside Rm 159. The patient was called multiple times by nurse and alumni secretary but not returning phone calls. He had been a patient on 08/22 here and was called 08/23 regarding condition. Late on 08/24/20, the nurse called a wellness check. The police found him unresponsive and he was transferred to the ICU at [facility]. I am awaiting health care proxy info to contact about debit card. Peyton Xiong, MPH, COMBINATION PRESSER, CTR
--- NOTE | 2020-08-26 09:45 | HE.ONCSEC ---
0945: Dr. Angeles called [facility] ICU. The patient on 08/25/20 at 6:00 p.m.. She spoke with the patient's sister Edith, who will be coming into the dept. to get the debit and [employer] cards. These were given to Dr. Angeles. Peyton Xiong, MPH, TYPING TEACHER, CTR
--- NOTE | 2020-08-26 12:55 | HE.ONCSEC ---
12:55 Patient's family here to pickling operator debit and [employer] card. Peyton Xiong, MPH, TOP HAT BODY MAKER, CTR
--- NOTE | 2020-08-26 13:29 | MHC.HEMONCSW ---
patient at [facility].
== END | disposition home or self-care (01) ==
LOC: HO.ONC 03-08 08:12
PROVIDERS: Internal Medicine Nephrology; PCP Internal Medicine; Visit Provider Internal Medicine Medical Oncology
DX: C34.12 Malignant neoplasm of upper lobe, left bronchus or lung (principal); C78.7 Secondary malignant neoplasm of liver and intrahepatic bile duct; D72.829 Elevated white blood cell count, unspecified; I95.9 Hypotension, unspecified; E83.42 Hypomagnesemia; N18.9 Chronic kidney disease, unspecified; Z86.73 Personal history of transient ischemic attack (TIA), and cerebral infarction without residual deficits; Z79.01 Long term (current) use of anticoagulants; Z94.84 Stem cells transplant status
CPT/HCPCS: 36415; 36591; 80053; 82533; 82550; 83735; 84443; 85007; 85025; 85027; 85060; 88184; 88185; 90471; 90670; 90686; 96360; 96361; 96365; 96366; 96367; 96372; 96375; 96413; 99214; J0897; J1200; J1642; J2405; J3475; J9271; Q0163